=== PATIENT | male | born 1940 | race Caucasian/White ===

== ENCOUNTER → 2017-06-13 | Outpatient (CLI) | payer MEDICARE ==
[2017-06-13 13:56] LABS: Calcium 9.3 mg/dL (8.4-10.2); Total Bilirubin 0.6 mg/dL (0.2-1.3); Total Protein 6.2 g/dL (6.3-8.2)
== END | disposition home or self-care (01) ==
LOC: LABWHC1 13:09
PROVIDERS: ATTEND Internal Medicine Interventional Cardiology
DX: I10 Essential (primary) hypertension (principal)
CPT/HCPCS: 36415; 80053

== ENCOUNTER → 2017-07-07 | Outpatient (CLI) | payer MEDICARE ==
[2017-07-07 18:10] LABS: CH 32.1; CHCM 30.8; HCT 43.8 % (39.0-53.0); HDW 2.19; HGB 13.7 gm/dL (13.0-17.5); Hypochromasia Slight; MCH 32.6 pg (25.0-35.0); MCHC 31.2 g/dL (31.0-37.0); MCV 104.6 fL (80.0-100.0); Macrocytosis Slight; Mean Platelet Volume 9.4; RBC 4.19 m/uL (4.30-5.90); RDW 13.5 % (11.5-15.5); WBC 8.5 k/uL (3.8-10.6)
== END | disposition home or self-care (01) ==
LOC: LABWHC1 16:53
PROVIDERS: ATTEND Internal Medicine Interventional Cardiology
DX: I48.0 Paroxysmal atrial fibrillation (principal)
CPT/HCPCS: 36415; 84443; 85027

== ENCOUNTER → 2017-10-28 | Day surgery (SDC) | payer MEDICARE ==
[~2017-10-28] MED LIST: ACETAMINOPHEN TAB 325 MG TAB ONE; HYDROcodone/APAP 5-325MG 1 EACH TAB PO PRN; PREMYELOGRAM MEDICATION REVIEW 1 EACH MISC PO PRN
[2017-10-28 09:01] LABS: Mean Platelet Volume 8.6; Platelet Count 163 k/uL (150-450)
[2017-10-28 09:10] VITALS: TEMP 97.9
[2017-10-28 09:14] LABS: INR 1.1 (<1.2); Prothrombin Time 10.5 sec (9.0-12.0)
--- NOTE | 2017-10-28 11:11 | FL ---
EXAMINATION TYPE: FL myelogram cervical DATE OF EXAM: 10/28/2017 CLINICAL HISTORY: Cervical spine pain TECHNIQUE: Fluoroscopy. COMPARISON: None. FINDINGS: Fluoroscopic guidance was provided during procedure performed by Dr. Jo. A total of 5 m inutes 50 seconds of fluoroscopic time was utilized during the procedure and 3 spot images was acquir ed. Informed consent was obtained and all the patient's questions were answered. Preprocedural timeout wa s performed. The L3-L4 level was localized under fluoroscopy but was unable to be accessed and there fore the L4-L5 vertebral level was approached. Standard sterile technique was utilized as well as ap propriate local anesthesia 1% Lidocaine and sodium bicarbonate. Spinal needle was introduced into th e thecal sac under fluoroscopic guidance and 11 mls of Omni 240 was injected. The patient tolerated the procedure well and left the department in stable condition. CT myelography is to follow. IMPRESSION: Successful fluoroscopic-guided lumbar puncture with injection of intrathecal contrast for cervical myelogram as described above.
[2017-10-28 11:49] VITALS: RESP 18
--- NOTE | 2017-10-28 13:18 | CT ---
EXAMINATION TYPE: CT cervical spine w con DATE OF EXAM: 10/28/2017 COMPARISON: NONE HISTORY: Cervicalgia CT DLP: 2526 mGycm Automated exposure control for dose reduction was used. CONTRAST: Performed with IV Contrast, patient injected with intrathecal 11 ml mL of Omnipaque 240. FINDINGS: Despite 3 attempts at scanning intrathecal contrast extends to the level of the cervical thoracic ricarda ction. There is grade 1 anterolisthesis of C2 on C3, likely degenerative in nature. There is also straighten ing of the usual cervical lordosis. Extensive multilevel degenerative disc disease is displayed as in tervertebral disc space loss, subchondral cyst formation, facet arthropathy, posterior disc osteophyt e complexes, and uncovertebral hypertrophy. At C2-C3 there is mild left neural foraminal narrowing and mild spinal canal stenosis from a broad-ba sed disc osteophyte complex, uncovertebral hypertrophy and facet arthropathy. Right neuroforamen is p atent. At C3-C4 there is moderate left neural foraminal narrowing, mild right neural foraminal narrowing, an d mild spinal canal stenosis as a result of uncovertebral hypertrophy, facet arthropathy and a works manager ior disc osteophyte complex. At C4-C5 there is moderate to severe left neural foraminal narrowing and moderate right neural forami nal narrowing as well as mild spinal canal stenosis as a result of facet arthropathy, a broad-based d isc osteophyte complex, and uncovertebral hypertrophy. At C5-C6 there is moderate to severe right neural foraminal narrowing and moderate left neural forami nal narrowing as well as mild spinal canal stenosis as a result of facet arthropathy, a broad-based d isc ossify complex, and uncovertebral hypertrophy. At C6-C7 mild bilateral neural foraminal narrowing is present without spinal canal stenosis. At C7-T1 no significant disc disease, neuroforaminal stenosis or spinal canal stenosis are seen. Atherosclerosis is incidentally noted of the carotid and vertebral arteries. Minimal bibasilar subseg mental atelectasis is also present. There is no evidence of acute fracture of the cervical spine. IMPRESSION: 1. NO EVIDENCE OF DISC HERNIATION. 2. MULTILEVEL MODERATE DEGENERATIVE CHANGES OF THE CERVICAL SPINE MOST SEVERE AT C3-C6 RESULTING IN M ILD SPINAL CANAL STENOSIS AT THESE LEVELS AND VARIABLE DEGREES OF NEURAL FORAMINAL STENOSIS DESCRI BED ABOVE. 3. GRADE 1 ANTEROLISTHESIS OF C2 ON C3, LIKELY ON A DEGENERATIVE BASIS WITH NO EVIDENCE OF ACUTE FRAC TURE OF THE CERVICAL SPINE.
[2017-10-28 14:48] VITALS: BP 137/70; PULSE 66
== END | disposition home or self-care (01) ==
LOC: RADPROMAIN 08:16
PROVIDERS: ATTEND Physical Medicine & Rehabilitation
DX: M43.12 Spondylolisthesis, cervical region (principal); M48.02 Spinal stenosis, cervical region; M25.78 Osteophyte, vertebrae; M50.320 Other cervical disc degeneration, mid-cervical region, unspecified level; M47.812 Spondylosis without myelopathy or radiculopathy, cervical region; Z79.01 Long term (current) use of anticoagulants; Z85.46 Personal history of malignant neoplasm of prostate; Z95.0 Presence of cardiac pacemaker
CPT/HCPCS: 85049; 85610; 36415; 62302; 72126; J2001; Q9966; 62284

== ENCOUNTER → 2018-01-20 | Outpatient (CLI) | payer MEDICARE ==
[2018-01-20 16:43] LABS: HGB 12.9 gm/dL (13.0-17.5); MCH 31.2 pg (25.0-35.0); MCHC 32.2 g/dL (31.0-37.0); MCV 96.9 fL (80.0-100.0); Mean Platelet Volume 9.4; Platelet Count 147 k/uL (150-450); RBC 4.13 m/uL (4.30-5.90); RDW 13.2 % (11.5-15.5); WBC 7.5 k/uL (3.8-10.6)
[2018-01-20 16:57] LABS: Albumin 3.7 g/dL (3.5-5.0); Calcium 9.1 mg/dL (8.4-10.2); Potassium 4.2 mmol/L (3.5-5.1); Total Bilirubin 0.3 mg/dL (0.2-1.3); Total Protein 5.6 g/dL (6.3-8.2)
== END | disposition home or self-care (01) ==
LOC: LABWHC1 16:08
PROVIDERS: ATTEND Internal Medicine Interventional Cardiology
DX: D48.0 Neoplasm of uncertain behavior of bone and articular cartilage (principal)
CPT/HCPCS: 36415; 80053; 84443; 85027

== ENCOUNTER → 2018-03-02 | Outpatient (CLI) | payer MEDICARE ==
[2018-03-02 11:37] LABS: Magnesium 2.3 mg/dL (1.6-2.3)
== END | disposition home or self-care (01) ==
LOC: LABWHC1 10:25
PROVIDERS: ATTEND Family Medicine
DX: E83.42 Hypomagnesemia (principal); M40.209 Unspecified kyphosis, site unspecified; M06.9 Rheumatoid arthritis, unspecified; I10 Essential (primary) hypertension; Z51.81 Encounter for therapeutic drug level monitoring
CPT/HCPCS: 36415; 80061; 83735

== ENCOUNTER 2018-08-27 06:46 | Day surgery (SDC) | payer MEDICARE ==
[2018-08-25 09:02] VITALS: BMI 29.2
[~2018-08-27 06:46] MED LIST changes: -ACETAMINOPHEN TAB 325 MG TAB ONE; +ALPRAZolam 0.25 MG TAB PO PRN; +ASPIRIN 325 MG TAB PO ONE; -HYDROcodone/APAP 5-325MG 1 EACH TAB PO PRN; +NITROGLYCERIN SL TABS 0.4 MG TAB SUBLINGUAL PRN; -PREMYELOGRAM MEDICATION REVIEW 1 EACH MISC PO PRN; +SODIUM CHLORIDE 0.9% 1,000 ML in EMPTY BAG 1 BAG IV ONE
[2018-08-27] MEDS ORDERED: VERAPAMIL 2.5 MG/ML 2 ML AMP ONE (07:19)
[2018-08-27] MEDS ORDERED: HEPARIN SODIUM 1,000 UN/ML (10ML VL) ONE (07:19)
[2018-08-27] MEDS ORDERED: fentaNYL (PF) 50 MCG/ML 2 ML AMP ONE (07:19)
[2018-08-27] MEDS ORDERED: LIDOCAINE 1% INJ 10MG/ML (20 ML MDV) ONE ×2 (07:19→08:21)
[2018-08-27] MEDS ORDERED: fentaNYL (PF) 50 MCG/ML 2 ML AMP IV ONE (07:23)
[2018-08-27] MEDS ORDERED: IV FLUID CONTINUATION 950 ML IV ONE (07:23)
[2018-08-27] MEDS: LIDOCAINE 1% (PF) 10MG/ML VIAL SQ ONE ×2 (07:23→08:24)
[2018-08-27] MEDS ORDERED: VERAPAMIL SYRINGE (5 MG/10 ML) INTRAARTER ONE (07:28)
[2018-08-27] MEDS: MIDAZOLAM 2 MG/2 ML VIAL IVP ONE ×2 (07:32→08:25)
[2018-08-27] MEDS ORDERED: CLOPIDOGREL 75 MG TAB ONE (07:40)
[2018-08-27 07:41] LABS: ALT 22 U/L (21-72); AST 31 U/L (17-59); Cholesterol 218 mg/dL (<200); HDL Cholesterol 55 mg/dL (40-60); LDL Cholesterol,Calculated 134 mg/dL (0-99); Triglycerides 143 mg/dL (<150)
[2018-08-27] MEDS ORDERED: CLOPIDOGREL 75 MG TAB PO ONE (07:45)
[2018-08-27 07:49] LABS: INR 1.1 (<1.2); Prothrombin Time 11.4 sec (9.0-12.0)
[2018-08-27] MEDS ORDERED: IOPAMIDOL-370 100ML BTL INJ ONE ×3 (07:54→08:47)
[2018-08-27] MEDS ORDERED: NITROGLYCERIN 1000MCG/10ML SYRINGE INTRACORON ONE (08:37)
[2018-08-27] MEDS ORDERED: ATROPINE SULFATE 0.1 MG/ML 10ML SYRINGE IV PRN (09:03)
[2018-08-27] MEDS ORDERED: ZOLPIDEM 5 MG TAB PO PRN (09:03)
[2018-08-27] MEDS ORDERED: RX INFO: IV CONTRAST WAS GIVEN 1 EACH MISC MISCELLANE PRN (09:03)
[2018-08-27] MEDS ORDERED: MAG HYDROX/AL HYDROX/SIMETH 30 ML CUP PO PRN (09:03)
[2018-08-27] MEDS ORDERED: NITROGLYCERIN SL TABS 0.4 MG TAB SUBLINGUAL PRN (09:03)
[2018-08-27] MEDS ORDERED: SODIUM CHLORIDE 0.9% 1,000 ML IV SCH (09:15)
--- NOTE | 2018-08-27 09:52 | CC ---
CARDIAC CATHETERIZATION REPORT Mr. Worthington is an 78-year-old male with known history of hypertension, hyperlipidemia, who presented with symptoms of dyspnea and had an abnormal myocardial perfusion imaging. In view of that, recommendation regarding cardiac catheterization. The procedure as well as risks and complications were discussed with the patient who is in full understanding and agreement. PROCEDURE: Patient was brought to labor relations or personnel negotiator in a fasting state after receiving fentanyl and Benadryl and achieving moderate conscious sedated state. Using Xylocaine anesthesia and Seldinger technique, a 6-Chinese sheath was introduced in the right radial artery. Selective right and left angiography performed using 6-Chinese right Alberto catheter and a 5-Chinese 3 and half bend left Maria A. Images of the coronary arteries were obtained. Following that, catheters were removed. Images were reviewed. FINDINGS: LEFT MAIN: This is a short size vessel bifurcating into left circumflex, left anterior descending artery, left main coronary artery has no evidence of high-grade stenosis. LEFT ANTERIOR DESCENDING ARTERY: This is a large-sized vessel giving rise to 2 small diagonal branch. The left anterior descending artery has mild intimal disease in mid segment of 20%. The rest of the vessel has no high-grade stenosis. LEFT CIRCUMFLEX: This is a large nondominant vessel giving rise to a large branching obtuse marginal branch in the inferior branch that is small in caliber. There is a 67% plaque in the proximal segment. The proximal circumflex has a 20% plaque. The rest of the vessel has no high-grade stenosis. RIGHT CORONARY ARTERY: This is a large dominant vessel bifurcating distally PDA and posterolateral segment branches. The right coronary artery in mid segment has a 99% stenosis at the takeoff of the acute marginal branch. Distally in the PLV, there is about a 60% stenosis. The vessel beyond that is small in caliber. LEFT VENTRICULOGRAM: Left ventriculogram was not performed. CONCLUSION: 1. Critical stenosis involving the mid right coronary artery. 2. Mild disease in the LAD with moderate disease in the left circumflex. 3. Collaterals from the left coronary system toward the right PDA. RECOMMENDATION: In view of findings and anatomy, I recommend proceeding with angioplasty and stenting of the right coronary artery. The procedure as well as risks and complications were discussed with the patient who is in full understanding and agreement. MMODL / IJN: [id number] /
--- NOTE | 2018-08-27 10:13 | PTCA ---
PERCUTANEOUSTRANS CORORONARY ANGIOGRAPHY Mr. Worthington is an 78-year-old male with a known history of coronary artery disease who recently had an abnormal myocardial perfusion imaging with a significant ischemia involving the inferior wall. Underwent cardiac catheterization, was found to have critical stenosis involving the mid right coronary artery. In view of that, recommendation was made regarding angioplasty and stenting. The procedures, risks and complication were discussed with the patient who is in full understanding and agreement. PROCEDURE: Multiple attempts to cannulate the right coronary artery from the radial approach using a 6-Chinese JR4, Ikari right 2.0, Ikari 1.5, ultimate 1, Bc right posterior and an XB RCA were unsuccessful. At that point, the catheter were removed and using Xylocaine anesthesia in the Seldinger, a 6-Chinese sheath was introduced in the left femoral artery. Subsequently .that sheath was exchanged to a long sheath. Subsequently , a 6- Chinese XB RCA guiding catheter introduced into the system after stenting the right coronary ostium a 0.014 balanced medium weight J-wire was advanced across the lesion positioned. distally then a 2.5 x 12 mm Trek balloon was advanced 1 inflation at 8 atmospheres was done following that the balloon was removed and a 2.5 x 50 mm Xience Elizabeth ID artery stent was deployed postdilated at 16 atmospheres. After the last inflation, after appropriate wait the balloon and the guidewire were withdrawn back in the guiding catheter. Images were obtained repeated. Those images reveal stable successful 10 stenting at that point the guiding catheter, the balloon and the guidewire were removed the sheath was removed. Hemostasis was obtained with deployment of an Angio-Seal in the right in the left femoral artery and TR band on the right radial artery. The patient was returned to his room in stable condition. There was no immediate complication. He had no chest discomfort or significant EKG changes with the inflations. He received a total of 9000 units of intra heparin intravenous heparin as well as intra-arterial verapamil. RESULTS: Successful stenting of the mid right coronary artery with reduction of stenosis from 99% to 0%. RECOMMENDATION: Patient will be continued on aspirin, Plavix, statin and Coumadin will be re- initiated. Those findings and recommendations were discussed with the patient and his family and they are in full understanding and agreement. Duration of the procedure is 88 minutes. MMODL / IJN: [id number] / [facility]
[2018-08-27] MEDS: ACETAMINOPHEN TAB 325 MG TAB PO PRN ×2 (17:49→23:03)
[2018-08-27] MEDS: traMADol 50 MG TAB PO PRN (17:50)
[2018-08-27] MEDS: METOPROLOL TARTRATE 50 MG TAB PO SCH (20:57)
[2018-08-27] MEDS ORDERED: MAGNESIUM OXIDE 400 MG TAB PO SCH (21:00)
[2018-08-27] MEDS ORDERED: DOXAZOSIN 4 MG TAB PO SCH (21:00)
[2018-08-27 21:13] VITALS: TEMP 98.2
[2018-08-28] MEDS: traMADol 50 MG TAB PO PRN ×2 (02:06→08:26)
[2018-08-28 06:38] LABS: Calcium 8.4 mg/dL (8.4-10.2); Potassium 4.5 mmol/L (3.5-5.1)
--- NOTE | 2018-08-28 07:14 | PN ---
PROGRESS NOTE Mr. Worthington is an 78-year-old male with a history of aortic valve replacement, who presented with abnormal myocardial perfusion imaging, underwent cardiac catheterization, was found to have critical stenosis involving the mid right coronary artery, underwent stenting of that vessel. He is doing well this morning, ambulating without difficulty. Denying any chest pain. No dizziness. No palpitation. He denies any nausea or cough. He continues to be in sinus mechanism. He continues to be on aspirin 81 mg daily, Lipitor 40 mg daily, Plavix 75 mg daily, mg daily, lisinopril 40 mg daily, metoprolol tartrate 50 mg twice a day. PHYSICAL EXAMINATION: Blood pressure 143/60 with the heart in the 60s. LUNGS: Clear. HEART: Regular rate and rhythm S1, S2. No S3. No rub with a systolic ejection murmur heard at the base. No diastolic murmur. ABDOMEN: Soft, nontender. EXTREMITIES: No edema. Left groin, no hematoma. Right radial pulse intact. EKG revealed no acute changes. LAB DATA: Lab data revealed BUN and creatinine of 25 and 1.01. Cholesterol 218, LDL of 134. IMPRESSION: 1. Status post stenting of the right coronary artery. 2. Status post aortic valve replacement. 3. Hypertension. 4. Hyperlipidemia. 5. History of paroxysmal atrial fibrillation. RECOMMENDATION: Patient will be discharged home today and followed as an outpatient. He will resume the Coumadin today and stop the aspirin in 1 month. MMODL / IJN: [id number] /
[2018-08-28] MEDS ORDERED: PANTOPRAZOLE 40 MG TABLET PO SCH (07:30)
[2018-08-28 08:14] VITALS: BP 159/70; PULSE 77; RESP 16
[2018-08-28] MEDS: METOPROLOL TARTRATE 50 MG TAB PO SCH (08:20)
[2018-08-28] MEDS: ACETAMINOPHEN TAB 325 MG TAB PO PRN (08:25)
[2018-08-28] MEDS ORDERED: CLOPIDOGREL 75 MG TAB PO SCH (09:00)
[2018-08-28] MEDS ORDERED: LISINOPRIL 20 MG TAB PO SCH (09:00)
[2018-08-28] MEDS ORDERED: ATORVASTATIN 40 MG TAB PO SCH (09:00)
[2018-08-28] MEDS ORDERED: ASPIRIN 81 MG PO SCH (09:00)
== END 2018-08-28 09:45 | disposition home or self-care (01) ==
LOC: CATHCVL 06:46 → 3SCARD 14:17 → CATHCVL 08-28 09:45
PROVIDERS: ATTEND Internal Medicine Interventional Cardiology
DX: I25.10 Atherosclerotic heart disease of native coronary artery without angina pectoris (principal); I10 Essential (primary) hypertension; E78.2 Mixed hyperlipidemia; Z82.49 Family history of ischemic heart disease and other diseases of the circulatory system; I48.0 Paroxysmal atrial fibrillation; E78.00 Pure hypercholesterolemia, unspecified; Z95.0 Presence of cardiac pacemaker; Z95.2 Presence of prosthetic heart valve; Z79.01 Long term (current) use of anticoagulants; Z79.1 Long term (current) use of non-steroidal anti-inflammatories (NSAID); Z79.899 Other long term (current) drug therapy
CPT/HCPCS: 93454; 85347; 84153; 80061; 80048; 84450; 84460; 85610; C9600; C1769 ×3; C1887 ×6; C1760; C1894 ×3; C1725; C1874; J2250; J3010; J1644 ×2; J2001; Q9967

== ENCOUNTER 2019-03-26 14:53 | Emergency (ER) | payer MEDICARE ==
[2019-03-26 15:07] VITALS: BP 122/66; PULSE 100; RESP 18; TEMP 98.1
[2019-03-26 16:21] LABS: INR 2.4 (<1.2); Prothrombin Time 23.7 sec (9.0-12.0)
--- NOTE | 2019-03-26 17:04 | XR ---
EXAMINATION TYPE: XR ribs LT w pa chest xray DATE OF EXAM: 03/26/2019 COMPARISON: NONE HISTORY: Left rib pain TECHNIQUE: 5 views including chest x-ray FINDINGS: There is no heart failure nor confluent pneumonic infiltrate. There is old left posterior s eventh rib fracture. There is slight blunting of the left costophrenic angle.. There is a left should er prosthesis. There is a left axillary pacemaker. There are sternal wires. There is minimal linear d ensity at the left lung base. I see no acute rib fracture. There is lumbar dextroscoliosis. IMPRESSION: No acute rib fracture. Minimal pleural reaction and subsegmental atelectasis at the lung bases. No heart failure.
--- NOTE | 2019-03-26 17:08 | XR ---
EXAMINATION TYPE: XR thoracic spine complete DATE OF EXAM: 03/26/2019 COMPARISON: Chest x-ray 01/25/2014 HISTORY: Chronic pain TECHNIQUE: 3 views FINDINGS: There is 30% anterior wedging of T10 vertebra. There is also mild anterior wedging of T9 an d T8. There is 30% anterior wedging of T7. There is no paraspinal mass. Posterior elements are intact . There is osteopenia. IMPRESSION: Multiple thoracic compression fractures that appear to be progressed significantly compar ed to old chest x-ray.
[2019-03-26 17:09] LABS: Appearance,Urine Clear (Clear); Bilirubin,Urine Negative (Negative); Blood,Urine Negative (Negative); Color,Urine Yellow; Glucose,Urine (UA) Negative (Negative); Ketones,Urine Negative (Negative); Leukocyte Esterase,Urine Negative (Negative); Nitrite,Urine Negative (Negative); PH, Urine 6.5 (5.0-8.0); Protein,Urine Negative (Negative); Specific Gravity,Urine 1.022 (1.001-1.035); Urobilinogen,Urine <2.0 mg/dL (<2.0)
--- NOTE | 2019-03-26 17:09 | XR ---
EXAMINATION TYPE: XR lumbar spine 2 or 3V DATE OF EXAM: 03/26/2019 COMPARISON: 07/12/2014 HISTORY: Chronic pain TECHNIQUE: 3 views FINDINGS: There is mild lumbar dextroscoliosis. There is degenerative disc space narrowing throughout the lumbar spine. There is 10% loss of height of L1 vertebra. Sacroiliac joints are intact. Abdomina l aorta is atheromatous. IMPRESSION: Moderate multilevel spondylotic changes and dextroscoliosis. No definite acute fracture. No significant change compared to old exam.
[2019-03-26] MEDS ORDERED: MORPHINE SULFATE 4 MG/ML SYRINGE IM STA (17:12)
--- NOTE | 2019-03-26 17:41 | ED ---
General Adult HPI <Mone Velásquez - Last Filed: 03/26/19 18:54> - General Source: patient Mode of arrival: ambulatory Limitations: no limitations <Libby Gill - Last Filed: 03/29/19 13:57> - General Chief complaint: Back Pain/Injury Stated complaint: Shoulder swollen, back, hip, rib pain Time Seen by Provider: 03/26/19 15:23 - History of Present Illness Initial comments: 79yo male with history of atrial fibrillation on coumadin presenting today for multiple complaints. Patient states he has had back pain for years, he states he has had compression fractures, and previous left sided rib fracture. He states over the course of the past month he has been taking a muscle relaxant, tramdolol and have several steroid injections from his primary care providers office. He states he has arthritis of his left hip that was recently evaluated by Dr. Franks, orthopedic surgeon--where he was told the pain most likely was from the back more so than the hip. Patient states that after 03/10/19 when riding on his tractor all day and laying on his left side to work on something under the tractor he has had increased mid to low back pain and left sided rib pain. He states he did not have the rib or back pain evaluated only the left hip. Which he received a steroid injection in the right arm about 1.5 weeks ago for at his PCP office. Patient states the pain is persistent when he rotates at his trunk or bends. He states it is positional and no there when sitting still. Patient denies loss of bowel bladder control, fever, IVDU, active cancer, urinary retention, weakness of the UE and LE, or recent falls. Patient states he also wants us to look at right arm to make sure the swelling/bruising around injection site is normal, he was told by primary care it was. Patient also requesting we check his INR, hes been taking his coumadin as directed but its been a month since he has had it checked out. Remaining ROS (-), patient denies redness of affected area, flu like symptoms, shortness of breath, chest pain, inability to walk, or any other complaints. Patient appears well on arrival. VS WNL. Patient states main reason for visit was tramadol not working for pain of the back. (Kinter,Libby L) - Related Data Home Medications Medication Instructions Recorded Confirmed Diclofenac Sodium [Voltaren] 75 mg PO QAM 02/02/15 03/28/19 Hydrochlorothiazide [Hydrodiuril] 25 mg PO QAM 02/02/15 03/28/19 Metoprolol Tartrate [Lopressor] 50 mg PO BID 02/02/15 03/28/19 Omeprazole [PriLOSEC] 20 mg PO DAILY 02/02/15 03/28/19 Ramipril [Altace] 5 mg PO QAM 02/02/15 03/28/19 Terazosin [Hytrin] 5 mg PO HS 02/02/15 03/28/19 traMADol HCL [Ultram] 50 mg PO TID PRN 02/02/15 03/28/19 Ascorbic Acid [Vitamin C] 500 mg PO DAILY 08/25/15 03/28/19 Cholecalciferol [Vitamin D3 (25 1,000 unit PO DAILY 08/25/15 03/28/19 Mcg = 1000 Iu)] Multivitamins, Thera [Multivitamin 1 tab PO DAILY 08/25/15 03/28/19 (formulary)] Acetaminophen Tab [Tylenol] 650 mg PO Q4-6H PRN 07/05/16 03/28/19 Glucosam/Ray-Msm1/C/Kai/Bosw 1 tab PO BID 07/05/16 03/28/19 [Glucosamine-Chondroitin Tablet] Iron 28mg 28 mg PO HS 07/05/16 03/28/19 Magnesium Oxide [Mag-Ox] 250 mg PO HS 07/05/16 03/28/19 Tamsulosin HCl [Flomax] 0.4 mg PO HS 08/28/18 03/28/19 Turmeric Root Extract [Turmeric] 500 mg PO DAILY 03/26/19 03/28/19 Ubidecarenone [Co Q-10] 100 mg PO DAILY 03/26/19 03/28/19 Warfarin [Coumadin] 2.5 mg PO SUMOWETHFR 03/26/19 03/28/19 Warfarin [Coumadin] 5 mg PO TUSA 03/26/19 03/28/19 Clopidogrel [Plavix] 75 mg PO DAILY 03/28/19 03/28/19 Fish Oil/Dha/Epa [Fish Oil 1,200 1 cap PO DAILY 03/28/19 03/28/19 mg Fish Oil] Previous Rx's Medication Instructions Recorded Nitroglycerin Sl Tabs [Nitrostat] 0.4 mg SUBLINGUAL Q5M PRN #25 tab 08/28/18 HYDROcodone/APAP 7.5-325MG [Jamieson 1 tab PO Q6HR PRN 3 Days #12 tab 03/26/19 7.5-325] Lidocaine 5% Patch [Lidoderm] 1 patch TOPICAL DAILY #30 patch 03/28/19 predniSONE 50 mg PO DAILY #5 tablet 03/28/19 Allergies Allergy/AdvReac Type Severity Reaction Status Date / Time No Known Allergies Allergy Verified 03/28/19 00:21 Review of Systems ROS Other: All systems not noted in ROS Statement are negative. <Mone Velásquez - Last Filed: 03/26/19 18:54> ROS Other: All systems not noted in ROS Statement are negative. <Libby Gill - Last Filed: 03/29/19 13:57> ROS Statement: Those systems with pertinent positive or pertinent negative responses have been documented in the HPI. Past Medical History Past Medical History: Atrial Fibrillation, Cancer, GERD/Reflux, Hypertension, Osteoarthritis (OA), Prostate Disorder, Vascular Disorder Additional Past Medical History / Comment(s): HX OF PROSTATE AND SKIN CANCER, [employer] PACEMAKER, [facility] HEART VALVE (COW), TORN LEFT ROTATOR CUFF, DEGENERATIVE ARTHRITIS IN BACK WITH PAIN, LOW IRON AND LEG CRAMPS, R foot OA-pt wears a brace. dislocated shoulder History of Any Multi-Drug Resistant Organisms: None Reported Past Surgical History: Cardiac Valve Replacement, Cholecystectomy, Heart Catheterization, Hernia Repair, Joint Replacement, Orthopedic Surgery, Pacemaker Additional Past Surgical History / Comment(s): 07/09/16 Reverse L shoulder rotator cuff repair arthroplasty. Other surgical HX: AORTIC VALVE REPLACEMENT ([facility]INE) ,BILATERAL GREAT TOES JT REPAIR,LEFT SHOULDER, PAIN CLINIC PROCEDURE, CATARACTS WITH LENS IMPLANTS , EMILEE INGUINAL HERNIAS, HIATAL HERNIA., [employer] PACEMAKER. STENT RCA 08/27/18 Past Anesthesia/Blood Transfusion Reactions: Motion Sickness, Postoperative Nausea & Vomiting (PONV) Type of Cardiac Device: Permanent Pacemaker Device Placement Date:: 2010 LT CHEST Past Psychological History: No Psychological Hx Reported Smoking Status: Never smoker Past Alcohol Use History: Occasional Past Drug Use History: None Reported - Past Family History Brother(s) Family Medical History: Cancer Additional Family Medical History / Comment(s): BROTHERS X2 PROSTATE,HIATAL HERNIA Mother Family Medical History: Congestive Heart Failure (CHF) Additional Family Medical History / Comment(s): EMPHYSEMA Father Family Medical History: Congestive Heart Failure (CHF) Additional Family Medical History / Comment(s): EMPHYSEMA <Libby Gill - Last Filed: 03/29/19 13:57> General Exam Limitations: no limitations <Libby Gill - Last Filed: 03/29/19 13:57> - General Exam Comments Initial Comments: General: The patient is awake and alert, in no distress, and does not appear acutely ill. Eye: +3 mm pupils are equal, round and reactive to light, extra-ocular movements are intact. No nystagmus. There is normal conjunctiva bilaterally. No signs of icterus. Ears, nose, mouth and throat: There are moist mucous membranes and no oral lesions. Neck: The neck is supple, there is no tenderness or JVD. Cardiovascular: There is a regular rate and rhythm. No murmur, rub or gallop is appreciated. Respiratory: Lungs are clear to auscultation, respirations are non-labored, breath sounds are equal. No wheezes, stridor, rales, or rhonchi. Gastrointestinal: Soft, non-distended, non-tender abdomen without masses or organomegaly noted. There is no rebound or guarding present. No CVA tenderness. Bowel sounds are unremarkable. Musculoskeletal: Inspect of the hip, no abnormalities, no abnormal skin changes of back. Inspection of the right humerus reveals yellow bruising, mild swelling, wiht minimal tenderness, no erythema or warmth appreciated. No palpable masses. Midline tendernes of the lower thoracic and upper lumbar spine with palpation, minimal paravertebral tenderness. Normal ROM, no tenderness of the UE, cervical spine. Strength 5/5 of the UE and LE. Patient is able to fully range at the hips b/l including left without limitation or difficulty, patietn states it is tender at maxium angles of the left hip. Sensation intact of the UE and LE equal in comparison b/l. Radial and DP pulses equal bilaterally 2+. Neurological: A&O x 3. CN II-XII intact, There are no obvious motor or sensory deficits. Coordination appears grossly intact. Speech is normal. Skin: Skin is warm and dry and no rashes or lesions are noted. Psychiatric: Cooperative, appropriate mood & affect, normal judgment. (Libby Gill) Course Vital Signs 03/26/19 15:03 Temperature 98.1 F Pulse Rate 100 Respiratory 18 Rate Blood Pressure 122/66 O2 Sat by Pulse 96 Oximetry Medical Decision Making <Libby Gill - Last Filed: 03/29/19 13:57> - Medical Decision Making 79yo presenting for multiple complaints. All starting after working on tractor for a day, bouncing around on uneven ground and working on left side of chest on ground. pt has hx of left sided rib fracture. Point localized tenderness to palpation of the lower left ribs, no abdominal pain. Denies chest pain or pain with inspiration. CXR (-) for fracture. Patient has what appears a healing traumatic hematoma of the right upper arm. Most likely from steroid injection, no signs of infection. Instruct patient to apply heat/ice to area. Patient states he has no new injury of the left hip and it has been evaluated by orthopedic surgery, patient NV intact on exam. No limitation in ROM. Chronic complaint, denies acute changes. Patient has known compression fractures most likely worsened since 03/10 from riding tractor as this when chronic pain changed. Patient NV intact, no findings/complaints consistent with cauda equina. No fractures of lumbar spine. At this time I will refer patient to orthopedic surgeon Dr. Ferrari or management of chronic compression fractures, as well as patient PCP for management of pain outpatient as patient has current opioid prescription. Patient appears pleased with plan and states he will f/u as directed and return for worsenign symptoms or as discussed. Patient was discharged appearing well ,no signs of acute distress. (Libby Gill) - Lab Data Lab Results 03/26/19 03/26/19 Range/Units 16:01 17:00 PT 23.7 H (9.0-12.0) sec INR 2.4 H (<1.2) Urine Color Yellow Urine Appearance Clear (Clear) Urine pH 6.5 (5.0-8.0) Ur Specific [place] 1.022 (1.001-1.035) Urine Protein Negative (Negative) Urine Glucose (UA) Negative (Negative) Urine Ketones Negative (Negative) Urine Blood Negative (Negative) Urine Nitrite Negative (Negative) Urine Bilirubin Negative (Negative) Urine Urobilinogen <2.0 (<2.0) mg/dL Ur Leukocyte Esterase Negative (Negative) Disposition Is patient prescribed a controlled substance at d/c from ED?: Yes When asked, does pt state using other controlled substances?: No If prescribed controlled substance>3 days was MAPS reviewed?: Prescribed <3 Days If opioid is for acute pain is fill amount 7 days or less?: Yes If Rx opioid, was Start Talking consent form obtained?: Yes <Mone Velásquez - Last Filed: 03/26/19 18:54> Is patient prescribed a controlled substance at d/c from ED?: No Time of Disposition: 17:40 <Libby Gill - Last Filed: 03/29/19 13:57> Clinical Impression: Traumatic hematoma of right upper arm, Chronic left hip pain, Rib pain on left side, Thoracic compression fracture Disposition: HOME SELF-CARE Condition: Good Instructions (If sedation given, give patient instructions): Vertebral Compression Fracture (ED) Additional Instructions: Please use medication as discussed. Please follow-up with family doctor in the next 2 days, 10 physical therapy, follow-up with orthopedic surgery Dr. Beth for compression fractures. Please return to emergency room if the symptoms increase or worsen or for any other concerns. Prescriptions: HYDROcodone/APAP 7.5-325MG [[place]ies[place] 7.5-325] 1 tab PO Q6HR PRN 3 Days #12 tab PRN Reason: Pain Referrals: Enedina David MD [Primary Care Provider] - 1-2 days Tari Ferrari DO [Doctor of Osteopathic Medicine] - 1-2 days
--- NOTE | 2019-03-26 18:12 | US ---
EXAMINATION TYPE: US venous doppler duplex UE RT DATE OF EXAM: 03/26/2019 COMPARISON: NONE CLINICAL HISTORY: Pain. Right lateral upper arm discomfort and bruising following steroid shot, patie nt on blood thinners SIDE PERFORMED: Right Right Arm: Appears negative for DVT IMPRESSION: There is no evidence of deep venous thrombosis in the right arm.
== END 2019-03-26 19:16 | disposition home or self-care (01) ==
LOC: EC 14:53
DX: S40.021A Contusion of right upper arm, initial encounter (principal); M48.54XA Collapsed vertebra, not elsewhere classified, thoracic region, initial encounter for fracture; G89.29 Other chronic pain; M25.552 Pain in left hip; I48.91 Unspecified atrial fibrillation; K21.9 Gastro-esophageal reflux disease without esophagitis; I10 Essential (primary) hypertension; Z79.01 Long term (current) use of anticoagulants; Z79.02 Long term (current) use of antithrombotics/antiplatelets; Z79.1 Long term (current) use of non-steroidal anti-inflammatories (NSAID); Z79.899 Other long term (current) drug therapy; Z85.46 Personal history of malignant neoplasm of prostate; Z85.828 Personal history of other malignant neoplasm of skin; Z95.0 Presence of cardiac pacemaker; Z95.2 Presence of prosthetic heart valve; Z87.39 Personal history of other diseases of the musculoskeletal system and connective tissue; X58.XXXA Exposure to other specified factors, initial encounter
CPT/HCPCS: 36415; 85610; 81003; 71101; 72072; 72100; 93971; 99284; 96372; J2270

== ENCOUNTER 2019-03-27 23:24 | Emergency (ER) | payer MEDICARE ==
[2019-03-27 23:34] VITALS: RESP 18
[2019-03-28] MEDS ORDERED: MORPHINE SULFATE 4 MG/ML SYRINGE IVP STA (00:02)
[2019-03-28] MEDS ORDERED: ONDANSETRON 4 MG/2 ML VIAL IVP STA (00:02)
--- NOTE | 2019-03-28 00:19 | ED ---
General Adult HPI - General Chief complaint: Extremity Injury, Upper Stated complaint: Rt Arm Pain Time Seen by Provider: 03/27/19 23:37 Source: patient, family Mode of arrival: wheelchair Limitations: no limitations - History of Present Illness Initial comments: 79-year-old male patient presents to the emergency department today with multiple complaints. The patient reports right arm pain, left rib pain, and left hip pain. Patient states the left hip pain started at the beginning of March. States that he went in and seen his physician and received a steroid injection to the right upper arm which caused a hematoma and ALLERGIC reaction. Patient states that that has been healing however he did develop pain to the right lower humerus since the injection which has been worsening. He denies any numbness or tingling to the arm. Denies any swelling. Patient is also reporting pain to the left ribs which started around the beginning of March as well. Patient states this pain has been worsening. Patient states he'll occasionally receive a sharp stabbing pain to the area. States that it does not seem to change with movement or deep breathing. He is also reporting some pain to the left paraspinal thoracic region. States it felt like a muscle spasm. Denies any shortness of breath, cough, hemoptysis with this. Patient is reporting pain to the left hip. States the pain is across his low back, down into the left buttock. Denies any numbness or tingling to the legs. Denies any radiation of the pain down the leg. Denies any loss of bowel or bladder control. Denies any saddle anesthesia. He states he has had no appetite. States he has lost 4 pounds since the beginning of March without intending to. States his last 6-8 pounds over the last 3 months without intending to. Patient is reporting some mild indigestion as well today. Does take Coumadin and has a pacemaker. Denies any chest pain, nausea, or vomiting. Denies any fever or chills. Denies any rash. - Related Data Home Medications Medication Instructions Recorded Confirmed Diclofenac Sodium [Voltaren] 75 mg PO QAM 02/02/15 03/28/19 Hydrochlorothiazide [Hydrodiuril] 25 mg PO QAM 02/02/15 03/28/19 Metoprolol Tartrate [Lopressor] 50 mg PO BID 02/02/15 03/28/19 Omeprazole [PriLOSEC] 20 mg PO DAILY 02/02/15 03/28/19 Ramipril [Altace] 5 mg PO QAM 02/02/15 03/28/19 Terazosin [Hytrin] 5 mg PO HS 02/02/15 03/28/19 traMADol HCL [Ultram] 50 mg PO TID PRN 02/02/15 03/28/19 Ascorbic Acid [Vitamin C] 500 mg PO DAILY 08/25/15 03/28/19 Cholecalciferol [Vitamin D3 (25 1,000 unit PO DAILY 08/25/15 03/28/19 Mcg = 1000 Iu)] Multivitamins, Thera [Multivitamin 1 tab PO DAILY 08/25/15 03/28/19 (formulary)] Acetaminophen Tab [Tylenol] 650 mg PO Q4-6H PRN 07/05/16 03/28/19 Glucosam/Ray-Msm1/C/Kai/Bosw 1 tab PO BID 07/05/16 03/28/19 [Glucosamine-Chondroitin Tablet] Iron 28mg 28 mg PO HS 07/05/16 03/28/19 Magnesium Oxide [Mag-Ox] 250 mg PO HS 07/05/16 03/28/19 Tamsulosin HCl [Flomax] 0.4 mg PO HS 08/28/18 03/28/19 Turmeric Root Extract [Turmeric] 500 mg PO DAILY 03/26/19 03/28/19 Ubidecarenone [Co Q-10] 100 mg PO DAILY 03/26/19 03/28/19 Warfarin [Coumadin] 2.5 mg PO SUMOWETHFR 03/26/19 03/28/19 Warfarin [Coumadin] 5 mg PO TUSA 03/26/19 03/28/19 Clopidogrel [Plavix] 75 mg PO DAILY 03/28/19 03/28/19 Fish Oil/Dha/Epa [Fish Oil 1,200 1 cap PO DAILY 03/28/19 03/28/19 mg Fish Oil] Previous Rx's Medication Instructions Recorded Nitroglycerin Sl Tabs [Nitrostat] 0.4 mg SUBLINGUAL Q5M PRN #25 tab 08/28/18 HYDROcodone/APAP 7.5-325MG [[place] 1 tab PO Q6HR PRN 3 Days #12 tab 03/26/19 7.5-325] Lidocaine 5% Patch [Lidoderm] 1 patch TOPICAL DAILY #30 patch 03/28/19 predniSONE 50 mg PO DAILY #5 tablet 03/28/19 Allergies Allergy/AdvReac Type Severity Reaction Status Date / Time No Known Allergies Allergy Verified 03/28/19 00:21 Review of Systems ROS Statement: Those systems with pertinent positive or pertinent negative responses have been documented in the HPI. ROS Other: All systems not noted in ROS Statement are negative. Past Medical History Past Medical History: Atrial Fibrillation, Cancer, GERD/Reflux, Hypertension, Osteoarthritis (OA), Prostate Disorder, Vascular Disorder Additional Past Medical History / Comment(s): HX OF PROSTATE AND SKIN CANCER, [employer] PACEMAKER, [facility] HEART VALVE (COW), TORN LEFT ROTATOR CUFF, DEGENERATIVE ARTHRITIS IN BACK WITH PAIN, LOW IRON AND LEG CRAMPS, R foot OA-pt wears a brace. dislocated shoulder History of Any Multi-Drug Resistant Organisms: None Reported Past Surgical History: Cardiac Valve Replacement, Cholecystectomy, Heart Catheterization, Hernia Repair, Joint Replacement, Orthopedic Surgery, Pacemaker Additional Past Surgical History / Comment(s): 07/09/16 Reverse L shoulder rotator cuff repair arthroplasty. Other surgical HX: AORTIC VALVE REPLACEMENT ([facility]) ,BILATERAL GREAT TOES JT REPAIR,LEFT SHOULDER, PAIN CLINIC PROCEDURE, CATARACTS WITH LENS IMPLANTS , EMILEE INGUINAL HERNIAS, HIATAL HERNIA., [employer] PACEMAKER. STENT RCA 08/27/18 Past Anesthesia/Blood Transfusion Reactions: Motion Sickness, Postoperative Nausea & Vomiting (PONV) Type of Cardiac Device: Permanent Pacemaker Device Placement Date:: 2010 LT CHEST Past Psychological History: No Psychological Hx Reported Smoking Status: Never smoker Past Alcohol Use History: Occasional Past Drug Use History: None Reported - Past Family History Brother(s) Family Medical History: Cancer Additional Family Medical History / Comment(s): BROTHERS X2 PROSTATE,HIATAL HERNIA Mother Family Medical History: Congestive Heart Failure (CHF) Additional Family Medical History / Comment(s): EMPHYSEMA Father Family Medical History: Congestive Heart Failure (CHF) Additional Family Medical History / Comment(s): EMPHYSEMA General Exam Limitations: no limitations General appearance: alert, in no apparent distress, other (Physical well- developed, well-nourished elderly male patient in no acute distress. Vital signs upon presentation are temperature 98.2F, pulse 77, respirations 18, blood pressure 153/87, pulse ox 97% on room air.) Eye exam: Present: normal appearance, PERRL, EOMI. Absent: scleral icterus, conjunctival injection, periorbital swelling ENT exam: Present: normal exam, normal oropharynx, mucous membranes moist Respiratory exam: Present: normal lung sounds bilaterally. Absent: respiratory distress, wheezes, rales, rhonchi, stridor Cardiovascular Exam: Present: regular rate, normal rhythm, normal heart sounds. Absent: systolic murmur, diastolic murmur, rubs, gallop, clicks GI/Abdominal exam: Present: soft, tenderness (Mild lower abdominal tenderness), normal bowel sounds. Absent: distended, guarding, rebound, rigid Extremities exam: Present: normal inspection, full ROM, normal capillary refill, other (Skin to the lower extremities is pink, warm, dry. Cap refills less than 3 seconds. Pedal and posttibial pulses are 2+ and equal bilaterally. No swelling. Right upper arm shows evidence of ecchymosis extending from the shoulder down to the elbow, there are varying stages of healing. No bony tenderness. No swelling to the arm. Radial pulses 2+ and equal bilaterally.). Absent: tenderness, pedal edema, joint swelling, calf tenderness Back exam: Present: normal inspection, tenderness (Left posterior rib pain over the thoracic region.). Absent: vertebral tenderness Neurological exam: Present: alert, oriented X3, CN II-XII intact Psychiatric exam: Present: normal affect, normal mood Skin exam: Present: warm, dry, intact, normal color. Absent: rash Course Vital Signs 03/27/19 23:29 Temperature 98.2 F Pulse Rate 77 Respiratory 18 Rate Blood Pressure 153/87 O2 Sat by Pulse 97 Oximetry EKG Findings - EKG Comments: EKG Findings:: EKG obtained at 00 21 shows atrial paced rhythm with a ventricula r rate of 61, LA interval 196, QRS duration 94, QT 400, QTC 402. No evidence of ST elevation or depression. Medical Decision Making - Medical Decision Making 79-year-old male patient presents to the emergency department today for evaluation of right arm pain, left rib pain, mid left back pain, and left hip pain. Physical examination is relatively unremarkable. There is some ecchymosis noted to the right upper arm. Tenderness to the left hip. Labs reviewed and were unremarkable. CT of the chest, abdomen, and pelvis was obtained and showed no acute abnormalities. Patient did have x-rays performed yesterday when he was evaluated for the same pain, this did show evidence for thoracic compression fracture. I do believe that the back pain and left rib pain are caused in part by the compression fracture. Patient's left hip pain seems mechanical and possibly from sciatic back pain which the patient has had in the past. He will be given a steroid burst of prednisone 50 mg. He does have [place] at home as well as muscle relaxers, he is urged take these as directed. He does have an appointment with his plate painter apprentice on Friday and his physician on . He is urged to keep his appointments. Return parameters were discussed in detail. He verbalizes understanding and agrees with this plan. - Lab Data Result diagrams: 03/28/19 00:24 03/28/19 00:24 Lab Results 03/28/19 03/28/19 03/28/19 Range/Units 00:24 00:24 00:24 WBC 8.8 (3.8-10.6) k/uL RBC 4.30 (4.30-5.90) m/uL Hgb 13.3 (13.0-17.5) gm/dL Hct 41.5 (39.0-53.0) % MCV 96.4 (80.0-100.0) fL MCH 31.0 (25.0-35.0) pg MCHC 32.1 (31.0-37.0) g/dL RDW 13.3 (11.5-15.5) % Plt Count 106 L (150-450) k/uL Neutrophils % 81 % Lymphocytes % 8 % Monocytes % 7 % Eosinophils % 2 % Basophils % 0 % Neutrophils # 7.1 (1.3-7.7) k/uL Lymphocytes # 0.7 L (1.0-4.8) k/uL Monocytes # 0.6 (0-1.0) k/uL Eosinophils # 0.2 (0-0.7) k/uL Basophils # 0.0 (0-0.2) k/uL PT 13.5 H (9.0-12.0) sec INR 1.3 H (<1.2) APTT 32.1 H (22.0-30.0) sec Sodium 138 (137-145) mmol/L Potassium 4.2 (3.5-5.1) mmol/L Chloride 103 (98-107) mmol/L Carbon Dioxide 27 (22-30) mmol/L Anion Gap 8 mmol/L BUN 35 H (9-20) mg/dL Creatinine 1.11 (0.66-1.25) mg/dL Est GFR (CKD-EPI)AfAm 72 (>60 ml/min/1.73 sqM) Est GFR (CKD-EPI)NonAf 62 (>60 ml/min/1.73 sqM) Glucose 97 (74-99) mg/dL Plasma Lactic Acid Terrell (0.7-2.0) mmol/L Calcium 9.2 (8.4-10.2) mg/dL Total Bilirubin 0.6 (0.2-1.3) mg/dL AST 22 (17-59) U/L ALT 10 L (21-72) U/L Alkaline Phosphatase 93 (38-126) U/L Creatine Kinase 85 (55-170) U/L Troponin I (0.000-0.034) ng/mL Total Protein 6.4 (6.3-8.2) g/dL Albumin 4.2 (3.5-5.0) g/dL Urine Color Urine Appearance (Clear) Urine pH (5.0-8.0) Ur Specific [place] (1.001-1.035) Urine Protein (Negative) Urine Glucose (UA) (Negative) Urine Ketones (Negative) Urine Blood (Negative) Urine Nitrite (Negative) Urine Bilirubin (Negative) Urine Urobilinogen (<2.0) mg/dL Ur Leukocyte Esterase (Negative) 03/28/19 03/28/19 03/28/19 Range/Units 00:24 00:24 00:24 WBC (3.8-10.6) k/uL RBC (4.30-5.90) m/uL Hgb (13.0-17.5) gm/dL Hct (39.0-53.0) % MCV (80.0-100.0) fL MCH (25.0-35.0) pg MCHC (31.0-37.0) g/dL RDW (11.5-15.5) % Plt Count (150-450) k/uL Neutrophils % % Lymphocytes % % Monocytes % % Eosinophils % % Basophils % % Neutrophils # (1.3-7.7) k/uL Lymphocytes # (1.0-4.8) k/uL Monocytes # (0-1.0) k/uL Eosinophils # (0-0.7) k/uL Basophils # (0-0.2) k/uL PT (9.0-12.0) sec INR (<1.2) APTT (22.0-30.0) sec Sodium (137-145) mmol/L Potassium (3.5-5.1) mmol/L Chloride (98-107) mmol/L Carbon Dioxide (22-30) mmol/L Anion Gap mmol/L BUN (9-20) mg/dL Creatinine (0.66-1.25) mg/dL Est GFR (CKD-EPI)AfAm (>60 ml/min/1.73 sqM) Est GFR (CKD-EPI)NonAf (>60 ml/min/1.73 sqM) Glucose (74-99) mg/dL Plasma Lactic Acid Terrell 1.0 (0.7-2.0) mmol/L Calcium (8.4-10.2) mg/dL Total Bilirubin (0.2-1.3) mg/dL AST (17-59) U/L ALT (21-72) U/L Alkaline Phosphatase (38-126) U/L Creatine Kinase (55-170) U/L Troponin I <0.012 (0.000-0.034) ng/mL Total Protein (6.3-8.2) g/dL Albumin (3.5-5.0) g/dL Urine Color Light Yellow Urine Appearance Clear (Clear) Urine pH 5.5 (5.0-8.0) Ur Specific [place] 1.022 (1.001-1.035) Urine Protein Trace H (Negative) Urine Glucose (UA) Negative (Negative) Urine Ketones Negative (Negative) Urine Blood Negative (Negative) Urine Nitrite Negative (Negative) Urine Bilirubin Negative (Negative) Urine Urobilinogen <2.0 (<2.0) mg/dL Ur Leukocyte Esterase Negative (Negative) - Radiology Data Radiology results: report reviewed, image reviewed CT chest with IV contrast was obtained. Report was reviewed in its entirety. Impression by Dr. Bush shows no acute intrathoracic findings. Trace right pleural effusion. CT abdomen and pelvis with IV contrast was obtained. Report was reviewed in its entirety. Impression by Dr. Bush shows no acute intra- abdominal process. Colonic diverticulosis. Mild bilateral hernia. Disposition Clinical Impression: Left hip pain, Right arm pain, Rib contusion, Back pain Disposition: HOME SELF-CARE Condition: Good Instructions (If sedation given, give patient instructions): Vertebral Compression Fracture (ED), Arthralgia (ED), Muscle Spasm (ED), Hematoma (ED) Additional Instructions: Continue home pain medications. Take muscle relaxer as directed. Apply heat to the painful areas. Use Lidoderm patch as needed. Complete steroid prescription and full. Follow-up with plate painter apprentice on Friday and your physician this week as you have planned. Return to the emergency department immediately for any new, worsening, or concerning symptoms. Prescriptions: Lidocaine 5% Patch [Lidoderm] 1 patch TOPICAL DAILY #30 patch predniSONE 50 mg PO DAILY #5 tablet Is patient prescribed a controlled substance at d/c from ED?: No Referrals: Enedina David MD [Primary Care Provider] - 1-2 days Time of Disposition: 02:15
[2019-03-28 00:35] LABS: Basophils % (A) 0 %; Eosinophils # (A) 0.2 k/uL (0-0.7); Eosinophils % (A) 2 %; HCT 41.5 % (39.0-53.0); HGB 13.3 gm/dL (13.0-17.5); Lymphocytes # (A) 0.7 k/uL (1.0-4.8); Lymphocytes % (A) 8 %; MCHC 32.1 g/dL (31.0-37.0); MCV 96.4 fL (80.0-100.0); Mean Platelet Volume 9.2; Monocytes # (A) 0.6 k/uL (0-1.0); Monocytes % (A) 7 %; Neutrophils # (A) 7.1 k/uL (1.3-7.7); Neutrophils % (A) 81 %; Platelet Count 106 k/uL (150-450); RDW 13.3 % (11.5-15.5); WBC 8.8 k/uL (3.8-10.6)
[2019-03-28 00:36] LABS: Appearance,Urine Clear (Clear); Bilirubin,Urine Negative (Negative); Blood,Urine Negative (Negative); Color,Urine Light Yellow; Glucose,Urine (UA) Negative (Negative); Ketones,Urine Negative (Negative); Leukocyte Esterase,Urine Negative (Negative); Nitrite,Urine Negative (Negative); PH, Urine 5.5 (5.0-8.0); Protein,Urine Trace (Negative); Specific Gravity,Urine 1.022 (1.001-1.035); Urobilinogen,Urine <2.0 mg/dL (<2.0)
[2019-03-28 00:46] LABS: INR 1.3 (<1.2); Partial Thromboplastin Time 32.1 sec (22.0-30.0); Prothrombin Time 13.5 sec (9.0-12.0)
[2019-03-28 00:51] LABS: Albumin 4.2 g/dL (3.5-5.0); Calcium 9.2 mg/dL (8.4-10.2); Potassium 4.2 mmol/L (3.5-5.1); Total Bilirubin 0.6 mg/dL (0.2-1.3); Total Protein 6.4 g/dL (6.3-8.2)
[2019-03-28] MEDS ORDERED: SODIUM CHLORIDE 0.9% 500 ML 500 ML IV ONE (01:26)
--- NOTE | 2019-03-28 01:36 | CT ---
EXAM: CT Chest With Intravenous Contrast CLINICAL HISTORY: ITS.REASON CT Reason: Pain TECHNIQUE: Axial computed tomography images of the chest with intravenous contrast. CTDI is 14 mGy and DLP is 415 mGy-cm. This CT exam was performed using one or more of the following dose reduction techniques: automated exposure control, adjustment of the mA and/or kV according to patient size, and/or use of iterative reconstruction technique. COMPARISON: No relevant prior studies available. FINDINGS: Lungs: No mass. No consolidation. Pleural space: No pneumothorax. Trace right pleural effusion. Heart: Mildly enlarged heart size without pericardial effusion. Pacer wires are in place. Bones/joints: No acute fracture. Soft tissues: Unremarkable. Vasculature: Unremarkable. No thoracic aortic aneurysm. Lymph nodes: No enlarged lymph nodes. IMPRESSION: No acute intrathoracic findings. Trace right pleural effusion since 6. EXAM: CT Abdomen and Pelvis With Intravenous Contrast CLINICAL HISTORY: ITS.REASON CT Reason: Pain TECHNIQUE: Axial computed tomography images of the abdomen and pelvis with intravenous contrast. CTDI is 14 mGy and DLP is 415 mGy-cm. This CT exam was performed using one or more of the following dose reduction techniques: automated exposure control, adjustment of the mA and/or kV according to patient size, and/or use of iterative reconstruction technique. COMPARISON: No relevant prior studies available. FINDINGS: ABDOMEN: Liver: Unremarkable. Gallbladder and bile ducts: Removed. Pancreas: Unremarkable. Spleen: Unremarkable. Adrenals: Unremarkable. Kidneys and ureters: No hydronephrosis. Stomach and bowel: No bowel obstruction. No bowel wall thickening. Mild hiatal hernia. Colonic diverticulosis. PELVIS: Appendix: No appendicitis. Bladder: Unremarkable. Reproductive: Enlarged. ABDOMEN and PELVIS: Intraperitoneal space: Unremarkable. Bones/joints: No acute fractures. Soft tissues: Unremarkable. Vasculature: No abdominal aortic aneurysm. Lymph nodes: No enlarged lymph nodes. IMPRESSION: No acute intra-abdominal process. Colonic diverticulosis. Mild hiatal hernia.
[2019-03-28] MEDS ORDERED: methylPREDNISolone SOD SUCCI 125 MG/2 ML VIAL IV STA (02:12)
[2019-03-28] MEDS ORDERED: LIDOCAINE 5% PATCH TOPICAL STA (02:12)
[2019-03-28 02:38] VITALS: BP 122/66; PULSE 67; TEMP 98
== END 2019-03-28 03:00 | disposition home or self-care (01) ==
LOC: EC 23:24
DX: S20.212A Contusion of left front wall of thorax, initial encounter (principal); M79.601 Pain in right arm; M25.552 Pain in left hip; M54.9 Dorsalgia, unspecified; S40.021A Contusion of right upper arm, initial encounter; K57.30 Diverticulosis of large intestine without perforation or abscess without bleeding; I48.91 Unspecified atrial fibrillation; K21.9 Gastro-esophageal reflux disease without esophagitis; I10 Essential (primary) hypertension; Z79.01 Long term (current) use of anticoagulants; Z79.02 Long term (current) use of antithrombotics/antiplatelets; Z79.899 Other long term (current) drug therapy; Z95.0 Presence of cardiac pacemaker; Z95.5 Presence of coronary angioplasty implant and graft; Z95.2 Presence of prosthetic heart valve; Z85.828 Personal history of other malignant neoplasm of skin; Z96.612 Presence of left artificial shoulder joint
CPT/HCPCS: 36415; 93005; 80053; 82550; 83605; 84484; 85025; 85610; 85730; 81003; 71260; 74177; 99284; 96374; 96375 ×2; 96361; J2270; J2930; J2405; Q9967

== ENCOUNTER → 2019-04-12 | Outpatient (CLI) | payer MEDICARE ==
--- NOTE | 2019-04-13 10:57 | XR ---
EXAMINATION TYPE: XR ribs LT w pa chest xray DATE OF EXAM: 04/12/2019 COMPARISON: 03/26/2019 HISTORY: Left rib pain for months TECHNIQUE: Frontal and oblique views of the left ribs were obtained. Single frontal view of the chest was also obtained. FINDINGS: There is partial obscuration of the left ribs by a left-sided overlying cardiac device. There is a callused healed rib fracture deformity of the seventh rib posterior laterally unchanged fr om the prior exam. Diffuse osseous demineralization is seen. The cardiomediastinal silhouette is enla rged. Reverse left humeral arthroplasty is noted. No focal consolidation, pleural effusion or pneumot horax. IMPRESSION: Calyceal fracture deformity of the posterior lateral left seventh rib. No acute displaced left rib fractures. No acute cardiopulmonary process.
== END | disposition home or self-care (01) ==
LOC: RADXRMAIN 16:35
PROVIDERS: ATTEND Family Medicine
DX: M95.4 Acquired deformity of chest and rib (principal); Z87.81 Personal history of (healed) traumatic fracture

== ENCOUNTER 2019-04-19 05:24 | Inpatient (IN) | payer MEDICARE ==
[2019-04-19 06:10] LABS: Basophils % (A) 0 %; Eosinophils # (A) 0.2 k/uL (0-0.7); Eosinophils % (A) 2 %; Hypochromasia Slight; Lymphocytes # (A) 0.4 k/uL (1.0-4.8); Lymphocytes % (A) 5 %; MCH 30.6 pg (25.0-35.0); MCHC 30.7 g/dL (31.0-37.0); MCV 99.7 fL (80.0-100.0); Macrocytosis Slight; Mean Platelet Volume 8.6; Monocytes # (A) 0.5 k/uL (0-1.0); Monocytes % (A) 6 %; Neutrophils # (A) 6.6 k/uL (1.3-7.7); Neutrophils % (A) 85 %; Platelet Count 118 k/uL (150-450); RBC 2.71 m/uL (4.30-5.90); RDW 14.4 % (11.5-15.5); WBC 7.7 k/uL (3.8-10.6)
[2019-04-19 06:12] LABS: HGB 8.3 gm/dL (13.0-17.5)
[2019-04-19 06:19] LABS: Albumin 3.1 g/dL (3.5-5.0); Calcium 8.6 mg/dL (8.4-10.2); Potassium 4.3 mmol/L (3.5-5.1); Total Bilirubin 0.9 mg/dL (0.2-1.3); Total Protein 5.4 g/dL (6.3-8.2)
[2019-04-19 06:20] LABS: Partial Thromboplastin Time 48.3 sec (22.0-30.0); Prothrombin Time 19.5 sec (9.0-12.0)
--- NOTE | 2019-04-19 06:28 | ED ---
General Adult HPI - General Chief complaint: Shortness of Breath Stated complaint: poss afib Time Seen by Provider: 04/19/19 06:02 Source: patient, RN notes reviewed Mode of arrival: wheelchair Limitations: no limitations - History of Present Illness Initial comments: This is an 79-year-old male presents emergency Department with chief complaint of fatigue and mild shortness of breath. Patient states that he just felt extremity fatigue of last 2 days with no other associated symptoms. He is concerned that he is in A. fib he states that he's had a history of A. fib and takes Coumadin for this. Patient states that he had a bout of A. fib in December and he felt similar. He has no complaints of palpitations at this time. Patient does admit that he's had some ongoing intercostal issues in which she's had rib discomfort. Patient states that he's been on multiple bouts of oral steroids. Patient denies fever, chills, productive cough, headache or dizziness. Patient did have a fall last Friday states that he has bruising from his right shoulder down his chest and right leg. Patient also states that he received a phone call from his live out nanny or Friday stating that his INR was very elevated in which she discontinued it and also states that he took some vitamin K. Patient schedule have her recheck today. Patient denies any hematuria, dysuria, melena or hematochezia. - Related Data Home Medications Medication Instructions Recorded Confirmed Diclofenac Sodium [Voltaren] 75 mg PO DIRECTED 02/02/15 04/19/19 Hydrochlorothiazide [Hydrodiuril] 25 mg PO QAM 02/02/15 04/19/19 Metoprolol Tartrate [Lopressor] 50 mg PO BID 02/02/15 04/19/19 Omeprazole [PriLOSEC] 20 mg PO DAILY 02/02/15 04/19/19 Ramipril [Altace] 5 mg PO QAM 02/02/15 04/19/19 Terazosin [Hytrin] 5 mg PO HS 02/02/15 04/19/19 traMADol HCL [Ultram] 50 mg PO TID PRN 02/02/15 04/19/19 Ascorbic Acid [Vitamin C] 500 mg PO DAILY 08/25/15 04/19/19 Cholecalciferol [Vitamin D3 (25 1,000 unit PO DAILY 08/25/15 04/19/19 Mcg = 1000 Iu)] Multivitamins, Thera [Multivitamin 1 tab PO DAILY 08/25/15 04/19/19 (formulary)] Acetaminophen Tab [Tylenol] 650 mg PO Q4-6H PRN 07/05/16 04/19/19 Glucosam/Ray-Msm1/C/Kai/Bosw 1 tab PO BID 07/05/16 04/19/19 [Glucosamine-Chondroitin Tablet] Iron 28mg 28 mg PO HS 07/05/16 04/19/19 Magnesium Oxide [Mag-Ox] 250 mg PO HS 07/05/16 04/19/19 Tamsulosin HCl [Flomax] 0.4 mg PO HS 08/28/18 04/19/19 Turmeric Root Extract [Turmeric] 500 mg PO DAILY 03/26/19 04/19/19 Ubidecarenone [Co Q-10] 100 mg PO DAILY 03/26/19 04/19/19 Warfarin [Coumadin] 5 mg PO DIRECTED 03/26/19 04/19/19 Clopidogrel [Plavix] 75 mg PO DAILY 03/28/19 04/19/19 Fish Oil/Dha/Epa [Fish Oil 1,200 1 cap PO DAILY 03/28/19 04/19/19 mg Fish Oil] Previous Rx's Medication Instructions Recorded Nitroglycerin Sl Tabs [Nitrostat] 0.4 mg SUBLINGUAL Q5M PRN #25 tab 08/28/18 HYDROcodone/APAP 7.5-325MG [[place] 1 tab PO Q6HR PRN 3 Days #12 tab 03/26/19 7.5-325] Lidocaine 5% Patch [Lidoderm] 1 patch TOPICAL DAILY #30 patch 03/28/19 Allergies Allergy/AdvReac Type Severity Reaction Status Date / Time No Known Allergies Allergy Verified 04/19/19 07:44 Review of Systems ROS Statement: Those systems with pertinent positive or pertinent negative responses have been documented in the HPI. ROS Other: All systems not noted in ROS Statement are negative. Past Medical History Past Medical History: Atrial Fibrillation, Cancer, GERD/Reflux, Hypertension, Osteoarthritis (OA), Prostate Disorder, Vascular Disorder Additional Past Medical History / Comment(s): HX OF PROSTATE AND SKIN CANCER, [employer]TR[employer]IC PACEMAKER, [facility] C[facility]Y HEART VALVE (COW), TORN LEFT ROTATOR CUFF, DEGENERATIVE ARTHRITIS IN BACK WITH PAIN, LOW IRON AND LEG CRAMPS, R foot OA-pt wears a brace. dislocated shoulder interecostal neuroelgia History of Any Multi-Drug Resistant Organisms: None Reported Past Surgical History: Cardiac Valve Replacement, Cholecystectomy, Heart Catheterization, Hernia Repair, Joint Replacement, Orthopedic Surgery, Pacemaker Additional Past Surgical History / Comment(s): 07/09/16 Reverse L shoulder rotator cuff repair arthroplasty. Other surgical HX: AORTIC VALVE REPLACEMENT ([facility]) ,BILATERAL GREAT TOES JT REPAIR,LEFT SHOULDER, PAIN CLINIC PROCEDURE, CATARACTS WITH LENS IMPLANTS , EMILEE INGUINAL HERNIAS, HIATAL HERNIA., MEDTRONIC PACEMAKER. STENT RCA 08/27/18 Past Anesthesia/Blood Transfusion Reactions: Motion Sickness, Postoperative Nausea & Vomiting (PONV) Type of Cardiac Device: Permanent Pacemaker Device Placement Date:: 2010 LT CHEST Past Psychological History: No Psychological Hx Reported Smoking Status: Never smoker Past Alcohol Use History: Occasional Past Drug Use History: None Reported - Past Family History Brother(s) Family Medical History: Cancer Additional Family Medical History / Comment(s): BROTHERS X2 PROSTATE,HIATAL HERNIA Mother Family Medical History: Congestive Heart Failure (CHF) Additional Family Medical History / Comment(s): EMPHYSEMA Father Family Medical History: Congestive Heart Failure (CHF) Additional Family Medical History / Comment(s): EMPHYSEMA General Exam Limitations: no limitations General appearance: alert, in no apparent distress Head exam: Present: atraumatic, normocephalic, normal inspection Eye exam: Present: normal appearance, PERRL, EOMI. Absent: scleral icterus, conjunctival injection, periorbital swelling ENT exam: Present: normal exam, normal oropharynx, mucous membranes moist Neck exam: Present: normal inspection, full ROM. Absent: tenderness, meningismus, lymphadenopathy Respiratory exam: Present: normal lung sounds bilaterally, chest wall tenderness (Mild right-sided ecchymosis noted to the right sided anterior chest). Absent: respiratory distress, wheezes, rales, rhonchi, stridor Cardiovascular Exam: Present: regular rate, normal rhythm, normal heart sounds. Absent: systolic murmur, diastolic murmur, rubs, gallop, clicks GI/Abdominal exam: Present: soft, normal bowel sounds. Absent: distended, t enderness, guarding, rebound, rigid Neurological exam: Present: alert, oriented X3, CN II-XII intact, reflexes normal. Absent: motor sensory deficit Skin exam: Present: warm, dry, intact, normal color. Absent: rash Course Vital Signs 04/19/19 04/19/19 05:33 07:16 Temperature 98.6 F Pulse Rate 72 62 Respiratory 19 16 Rate Blood Pressure 116/59 126/67 O2 Sat by Pulse 96 94 L Oximetry EKG Findings - EKG Comments: EKG Findings:: EKG performed at 5:50 1H Alexei rate 65 [place] 112 QRS 104 QT/QTC 402/418 Medical Decision Making - Medical Decision Making 79-year-old male presented for jaundice weakness and fatigue. Patient's found to have anemia of 8.3 with a significant drop one went from 13.3. Patient is Hemoccult negative he does have significant area of bruising and he had Coumadin coagulopathy on with 8. Patient will be admitted for recheck H&H and further evaluation. - Lab Data Result diagrams: 04/19/19 05:51 04/19/19 05:51 Lab Results 04/19/19 04/19/19 04/19/19 Range/Units 05:51 05:51 05:51 WBC 7.7 (3.8-10.6) k/uL RBC 2.71 L (4.30-5.90) m/uL Hgb 8.3 L D (13.0-17.5) gm/dL Hct 27.0 L (39.0-53.0) % MCV 99.7 (80.0-100.0) fL MCH 30.6 (25.0-35.0) pg MCHC 30.7 L (31.0-37.0) g/dL RDW 14.4 (11.5-15.5) % Plt Count 118 L (150-450) k/uL Neutrophils % 85 % Lymphocytes % 5 % Monocytes % 6 % Eosinophils % 2 % Basophils % 0 % Neutrophils # 6.6 (1.3-7.7) k/uL Lymphocytes # 0.4 L (1.0-4.8) k/uL Monocytes # 0.5 (0-1.0) k/uL Eosinophils # 0.2 (0-0.7) k/uL Basophils # 0.0 (0-0.2) k/uL Hypochromasia Slight Macrocytosis Slight PT 19.5 H (9.0-12.0) sec INR 2.0 H (<1.2) APTT 48.3 H (22.0-30.0) sec Sodium 137 (137-145) mmol/L Potassium 4.3 (3.5-5.1) mmol/L Chloride 105 (98-107) mmol/L Carbon Dioxide 25 (22-30) mmol/L Anion Gap 7 mmol/L BUN 35 H (9-20) mg/dL Creatinine 1.05 (0.66-1.25) mg/dL Est GFR (CKD-EPI)AfAm 77 (>60 ml/min/1.73 sqM) Est GFR (CKD-EPI)NonAf 67 (>60 ml/min/1.73 sqM) Glucose 117 H (74-99) mg/dL Calcium 8.6 (8.4-10.2) mg/dL Total Bilirubin 0.9 (0.2-1.3) mg/dL AST 22 (17-59) U/L ALT 16 L (21-72) U/L Alkaline Phosphatase 60 (38-126) U/L Troponin I (0.000-0.034) ng/mL Total Protein 5.4 L (6.3-8.2) g/dL Albumin 3.1 L (3.5-5.0) g/dL Stool Occult Blood (Negative) 04/19/19 04/19/19 Range/Units 05:51 07:29 WBC (3.8-10.6) k/uL RBC (4.30-5.90) m/uL Hgb (13.0-17.5) gm/dL Hct (39.0-53.0) % MCV (80.0-100.0) fL MCH (25.0-35.0) pg MCHC (31.0-37.0) g/dL RDW (11.5-15.5) % Plt Count (150-450) k/uL Neutrophils % % Lymphocytes % % Monocytes % % Eosinophils % % Basophils % % Neutrophils # (1.3-7.7) k/uL Lymphocytes # (1.0-4.8) k/uL Monocytes # (0-1.0) k/uL Eosinophils # (0-0.7) k/uL Basophils # (0-0.2) k/uL Hypochromasia Macrocytosis PT (9.0-12.0) sec INR (<1.2) APTT (22.0-30.0) sec Sodium (137-145) mmol/L Potassium (3.5-5.1) mmol/L Chloride (98-107) mmol/L Carbon Dioxide (22-30) mmol/L Anion Gap mmol/L BUN (9-20) mg/dL Creatinine (0.66-1.25) mg/dL Est GFR (CKD-EPI)AfAm (>60 ml/min/1.73 sqM) Est GFR (CKD-EPI)NonAf (>60 ml/min/1.73 sqM) Glucose (74-99) mg/dL Calcium (8.4-10.2) mg/dL Total Bilirubin (0.2-1.3) mg/dL AST (17-59) U/L ALT (21-72) U/L Alkaline Phosphatase (38-126) U/L Troponin I 0.019 (0.000-0.034) ng/mL Total Protein (6.3-8.2) g/dL Albumin (3.5-5.0) g/dL Stool Occult Blood Negative (Negative) Disposition Clinical Impression: Anemia, Weakness, Traumatic hematoma of multiple sites, Warfarin-induced coagulopathy Disposition: ADMITTED IP TO THIS [facility] Condition: Fair Referrals: Enedina David MD [Primary Care Provider] - 1-2 days
--- NOTE | 2019-04-19 06:43 | XR ---
EXAM: XR Right Shoulder Complete, 2 or More Views CLINICAL HISTORY: ITS.REASON XR Reason: Pain TECHNIQUE: Two or more views of the right shoulder. COMPARISON: CT chest 03/28/19 IMPRESSION: As seen on the CT from the prior exam there appears to be comminuted fractures involving the distal right clavicle and the humeral head. No significant dislocation of the glenohumeral joint. There is decreased acromioclavicular distance consistent with rotator cuff pathology. There is 2.5 cm linear calcification along the rotator cuff tendon attachment site along the greater tuberosity consistent with calcific tendinosis.
--- NOTE | 2019-04-19 06:55 | XR ---
EXAM: XR Chest, 2 Views CLINICAL HISTORY: ITS.REASON XR Reason: difficulty breathing TECHNIQUE: Frontal and lateral views of the chest. COMPARISON: 01/25/14. IMPRESSION: Cardiomegaly. Pacer wires are in place. Small left lower lobe opacity, likely atelectasis versus aspiration. Partially visualized fractured right clavicle and humerus.
[2019-04-19] MEDS ORDERED: ACETAMINOPHEN TAB 325 MG TAB PO PRN (09:40)
[2019-04-19] MEDS ORDERED: PHYTONADIONE ORAL 5 MG/5 ML ORAL.SYRG PO STA (11:39)
[2019-04-19] MEDS ORDERED: HYDROCHLOROTHIAZIDE 25 MG TAB PO ONE (11:45)
[2019-04-19] MEDS ORDERED: METOPROLOL TARTRATE 50 MG TAB PO ONE (11:45)
--- NOTE | 2019-04-19 11:53 | P.CONS ---
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 Patient has been experiencing worsening fatigue over the last few days. 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 CT chest abdomen and pelvis 03/28/2019 reported no acute findings. Colonic diverticulosis. Mild hiatal hernia. Denies epigastric abdominal pain. Patient fell 2 weeks ago with development of visible ecchymosis to the right lower extremity as well as to the bilateral right flank backside. Patient was told prior to admission his INR was 8.1. Consult requested for GI bleed evaluation. Patient vehemently denies hematemesis hematochezia or melena. No history GI bleed. Last colonoscopy 4-5 years ago to his memory was unremarkable. No recent EGD thinks one was done around the time of his hiatal hernia repair. Admission hemoglobin 8.3. MCV 99. Platelet 118. INR 2.0. BUN 35. Creatinine 1.0. FOBT negative. Review of hemoglobin on 03/28/2019 was 13.3. INR at that time was 1.3. Review of Systems Constitutional: Denies fever, chills, sweats, weight gain, or loss. HEENT: Negative for migraines, blurred vision or loss, earaches, drainage, tinnitus, oral mucosal lesions, dysphagia, or odynophagia. Cardiac: Negative for chest pain, arrhythmias, or palpitation. Respiratory: Negative for shortness of breath, hemoptysis, cough, or sputum production. Gastrointestinal: See HPI for pertinent findings. Genitourinary: Negative for hematuria, urgency, frequency, polyuria, dysuria, or penile discharge. Musculoskeletal: Negative for muscle aches, swelling, arthritis, and arthralgias. Neurologic: Negative for stroke or TIA. Endocrine: Negative for thyroid problems. Skin: Negative for rash or itching. Psychiatric: Negative history for depression and anxiety Past Medical History Past Medical History: Atrial Fibrillation, Cancer, GERD/Reflux, Hypertension, Osteoarthritis (OA), Prostate Disorder, Vascular Disorder Additional Past Medical History / Comment(s): HX OF PROSTATE AND SKIN CANCER, [employer] PACEMAKER, [facility] CINDY HEART VALVE (COW), TORN LEFT ROTATOR CUFF, DEGENERATIVE ARTHRITIS IN BACK WITH PAIN, LOW IRON AND LEG CRAMPS, R foot OA-pt wears a brace. dislocated shoulder interecostal neuroelgia History of Any Multi-Drug Resistant Organisms: None Reported Past Surgical History: Cardiac Valve Replacement, Cholecystectomy, Heart Catheterization, Hernia Repair, Joint Replacement, Orthopedic Surgery, Pacemaker Additional Past Surgical History / Comment(s): 07/09/16 Reverse L shoulder rotator cuff repair arthroplasty. Other surgical HX: AORTIC VALVE REPLACEMENT ([facility]) ,BILATERAL GREAT TOES JT REPAIR,LEFT SHOULDER, PAIN CLINIC PROCEDURE, CATARACTS WITH LENS IMPLANTS , EMILEE INGUINAL HERNIAS, HIATAL HERNIA., MEDTRONIC PACEMAKER. STENT RCA 08/27/18 Past Anesthesia/Blood Transfusion Reactions: Motion Sickness, Postoperative Nausea & Vomiting (PONV) Type of Cardiac Device: Permanent Pacemaker Device Placement Date:: 2010 CHEST Past Psychological History: No Psychological Hx Reported Smoking Status: Never smoker Past Alcohol Use History: Occasional Past Drug Use History: None Reported - Past Family History Brother(s) Family Medical History: Cancer Additional Family Medical History / Comment(s): BROTHERS X2 PROSTATE,HIATAL HERNIA Mother Family Medical History: Congestive Heart Failure (CHF) Additional Family Medical History / Comment(s): EMPHYSEMA Father Family Medical History: Congestive Heart Failure (CHF) Additional Family Medical History / Comment(s): EMPHYSEMA Medications and Allergies Home Medications Medication Instructions Recorded Confirmed Type Diclofenac Sodium [Voltaren] 75 mg PO DIRECTED 02/02/15 04/19/19 History Hydrochlorothiazide [Hydrodiuril] 25 mg PO QAM 02/02/15 04/19/19 History Metoprolol Tartrate [Lopressor] 50 mg PO BID 02/02/15 04/19/19 History Omeprazole [PriLOSEC] 20 mg PO DAILY 02/02/15 04/19/19 History Ramipril [Altace] 5 mg PO QAM 02/02/15 04/19/19 History Terazosin [Hytrin] 5 mg PO HS 02/02/15 04/19/19 History traMADol HCL [Ultram] 50 mg PO TID PRN 02/02/15 04/19/19 History Ascorbic Acid [Vitamin C] 500 mg PO DAILY 08/25/15 04/19/19 History Cholecalciferol [Vitamin D3 (25 1,000 unit PO DAILY 08/25/15 04/19/19 History Mcg = 1000 Iu)] Multivitamins, Thera [Multivitamin 1 tab PO DAILY 08/25/15 04/19/19 History (formulary)] Acetaminophen Tab [Tylenol] 650 mg PO Q4-6H PRN 07/05/16 04/19/19 History Glucosam/Ray-Msm1/C/Kai/Bosw 1 tab PO BID 07/05/16 04/19/19 History [Glucosamine-Chondroitin Tablet] Iron 28mg 28 mg PO HS 07/05/16 04/19/19 History Magnesium Oxide [Mag-Ox] 250 mg PO HS 07/05/16 04/19/19 History Nitroglycerin Sl Tabs [Nitrostat] 0.4 mg SUBLINGUAL Q5M PRN #25 tab 08/28/18 04/19/19 Rx Tamsulosin HCl [Flomax] 0.4 mg PO HS 08/28/18 04/19/19 History HYDROcodone/APAP 7.5-325MG [[place] 1 tab PO Q6HR PRN 3 Days #12 tab 03/26/19 04/19/19 Rx 7.5-325] Turmeric Root Extract [Turmeric] 500 mg PO DAILY 03/26/19 04/19/19 History Ubidecarenone [Co Q-10] 100 mg PO DAILY 03/26/19 04/19/19 History Warfarin [Coumadin] 5 mg PO DIRECTED 03/26/19 04/19/19 History Clopidogrel [Plavix] 75 mg PO DAILY 03/28/19 04/19/19 History Fish Oil/Dha/Epa [Fish Oil 1,200 1 cap PO DAILY 03/28/19 04/19/19 History mg Fish Oil] Lidocaine 5% Patch [Lidoderm] 1 patch TOPICAL DAILY #30 patch 03/28/19 04/19/19 Rx Allergies Allergy/AdvReac Type Severity Reaction Status Date / Time No Known Allergies Allergy Verified 04/19/19 07:44 Physical Exam Vitals: Vital Signs Temp Pulse Pulse Resp BP BP Pulse Ox 04/19/19 11:04 98.2 F 78 20 120/57 87 L 04/19/19 10:34 76 18 111/69 98 04/19/19 09:18 84 16 119/56 99 04/19/19 07:16 62 16 126/67 94 L 04/19/19 05:33 98.6 F 72 19 116/59 96 Intake and Output 04/18/19 04/19/19 04/19/19 22:59 06:59 14:59 Other: Weight 73.482 kg General appearance: The patient is alert, oriented, in no acute distress. HET: Head is normocephalic and atraumatic. Pupils are equal and reactive. Oropharynx is clear without lesions. Neck: Supple without lymphadenopathy. Trachea midline. Heart: S1 S2. Regular rate and rhythm. Lungs: No crackles or wheezes are heard. Abdomen: Soft, nontender, nondistended with bowel sounds. No peritoneal signs. No palpable organomegaly or masses. Extremities: Grossly ecchymotic to the right lower extremity as well as to the right flank backside extending over to the left ribs and right shoulder. Normal skin color and turgor. No cyanosis, rash, ulceration, clubbing, or edema. Radial and pedal pulses are 2/4 bilaterally. Neurological: No focal deficits. Strength and sensation are grossly intact. Results CBC & Chem 7: 04/19/19 05:51 04/19/19 05:51 Labs: Abnormal Lab Results - Last 24 Hours (Table) 04/19/19 04/19/19 04/19/19 Range/Units 05:51 05:51 05:51 RBC 2.71 L (4.30-5.90) m/uL Hgb 8.3 L D (13.0-17.5) gm/dL Hct 27.0 L (39.0-53.0) % MCHC 30.7 L (31.0-37.0) g/dL Plt Count 118 L (150-450) k/uL Lymphocytes # 0.4 L (1.0-4.8) k/uL PT 19.5 H (9.0-12.0) sec INR 2.0 H (<1.2) APTT 48.3 H (22.0-30.0) sec BUN 35 H (9-20) mg/dL Glucose 117 H (74-99) mg/dL ALT 16 L (21-72) U/L Total Protein 5.4 L (6.3-8.2) g/dL Albumin 3.1 L (3.5-5.0) g/dL CT scan - abdomen: report reviewed (CT abdomen and pelvis chest 03/28/[address] Salgado) Assessment and Plan (1) Normocytic anemia Narrative/Plan: 79-year-old male admitted with worsening fatigue and reported outpatient supra therapeutic INR of 8.1 for a history of atrial fibrillation CAD PCI stent and bovine AVR. Patient fell less than 2 weeks ago with visible evidence of diffuse ecchymosis to the right lower extremity right flank backside as well as the left ribs and right shoulder consistent with subcutaneous acute blood loss. Underlying occult GI bleed cannot be excluded however patient denies GI complaints as well as hematemesis hematochezia melena and FOBT is negative. Current Visit: Yes Status: Acute Code(s): D64.9 - ANEMIA, UNSPECIFIED SNOMED Code(s): 399659535 (2) Warfarin-induced coagulopathy Current Visit: Yes Status: Acute Code(s): D68.32 - HEMORRHAGIC DISORD D/T EXTRINSIC CIRCULATING ANTICOAGULANTS; T45.515A - ADVERSE EFFECT OF ANTICOAGULANTS, INITIAL ENCOUNTER SNOMED Code(s): 28134950 (3) Atrial fibrillation Current Visit: Yes Status: Acute Code(s): I48.91 - UNSPECIFIED ATRIAL FIBRILLATION SNOMED Code(s): 46604874 (4) H/O aortic valve replacement Current Visit: Yes Status: Acute Code(s): Z95.2 - PRESENCE OF PROSTHETIC HEART VALVE SNOMED Code(s): 3830610529466 (5) Rib pain on left side Current Visit: No Status: Acute Code(s): R07.81 - PLEURODYNIA SNOMED Code(s): 103520553 Plan: 1. Patient is requesting conservative measures unless he manifests an active GI bleed, he is not interested in pursuing with EGD colonoscopy at this time which seems to be reasonable. Continue to monitor CBC closely. PT/INR monitoring. Anticoagulation is presently on hold. Thank you for this kind referral and the opportunity to participate in the care of your patient. This consultation was discussed with Dr. Salgado. The impression and plan of care have been directed as dictated.
--- NOTE | 2019-04-19 11:55 | P.HPIM ---
History of Present Illness H&P Date: 04/19/19 Chief Complaint: Fatigue and weakness This is an 79-year-old male with a past medical history of coronary artery disease with stenting , aortic valve replacement with porcine valve on anticoagulation with Coumadin, atrial fibrillation presents emergency Department with chief complaint of fatigue/weakness and mild shortness of breath. Patient states that he just felt extremity fatigue of last 2 days with no other associated symptoms. He is concerned that he is in A. fib he states that he's had a history of A. fib and takes Coumadin for this. Patient states that he had a bout of A. fib in December and he felt similar. He has no complaints of palpitations at this time. Patient does admit that he's had some ongoing intercostal issues in which she's had rib discomfort and apparently has an appointment with anesthesia tomorrow to be evaluated for nerve block. Patient states that he's been on multiple bouts of oral steroids. Patient denies fever, chills, productive cough, headache or dizziness. Patient did have a fall last Friday states that he has bruising from his right shoulder down his chest and right leg. Patient also states that he received a phone call from Dr. Hwang his security coordinator or Friday stating that his INR was very elevated at 8.3 and he was told to discontinue his Coumadin and Plavix and was given vitamin K. In the ER the patient had a comprehensive workup EKG showed a paced rhythm with a heart rate of 65, chest x-ray showed cardiomegaly and left lower lobe atelectasis, shoulder x-ray consistent with rotator cuff pathology. Admission labs hemoglobin of 8.3 hematocrit 27, platelet 118, PT INR 19.5 and 2 respect ively, troponin less than 0.019, stool Hemoccult negative Review of Systems pertinent positives per HPI all other systems was negative Past Medical History Past Medical History: Atrial Fibrillation, Cancer, GERD/Reflux, Hypertension, Osteoarthritis (OA), Prostate Disorder, Vascular Disorder Additional Past Medical History / Comment(s): HX OF PROSTATE AND SKIN CANCER, [employer] PACEMAKER, [facility] HEART VALVE (COW), TORN LEFT ROTATOR CUFF, DEGENERATIVE ARTHRITIS IN BACK WITH PAIN, LOW IRON AND LEG CRAMPS, R foot OA-pt wears a brace. dislocated shoulder interecostal neuroelgia History of Any Multi-Drug Resistant Organisms: None Reported Past Surgical History: Cardiac Valve Replacement, Cholecystectomy, Heart Catheterization, Hernia Repair, Joint Replacement, Orthopedic Surgery, Pacemaker Additional Past Surgical History / Comment(s): 07/09/16 Reverse L shoulder rotator cuff repair arthroplasty. Other surgical HX: AORTIC VALVE REPLACEMENT ([facility]) ,BILATERAL GREAT TOES JT REPAIR,LEFT SHOULDER, PAIN CLINIC MD OCEDURE, CATARACTS WITH LENS IMPLANTS , EMILEE INGUINAL HERNIAS, HIATAL HERNIA., [employer] PACEMAKER. STENT RCA 08/27/18 Past Anesthesia/Blood Transfusion Reactions: Motion Sickness, Postoperative Nausea & Vomiting (PONV) Type of Cardiac Device: Permanent Pacemaker Device Placement Date:: 2010 LT CHEST Past Psychological History: No Psychological Hx Reported Smoking Status: Never smoker Past Alcohol Use History: Occasional Past Drug Use History: None Reported - Past Family History Brother(s) Family Medical History: Cancer Additional Family Medical History / Comment(s): BROTHERS X2 PROSTATE,HIATAL HERNIA Mother Family Medical History: Congestive Heart Failure (CHF) Additional Family Medical History / Comment(s): EMPHYSEMA Father Family Medical History: Congestive Heart Failure (CHF) Additional Family Medical History / Comment(s): EMPHYSEMA Medications and Allergies Home Medications Medication Instructions Recorded Confirmed Type Diclofenac Sodium [Voltaren] 75 mg PO DIRECTED 02/02/15 04/19/19 History Hydrochlorothiazide [Hydrodiuril] 25 mg PO QAM 02/02/15 04/19/19 History Metoprolol Tartrate [Lopressor] 50 mg PO BID 02/02/15 04/19/19 History Omeprazole [PriLOSEC] 20 mg PO DAILY 02/02/15 04/19/19 History Ramipril [Altace] 5 mg PO QAM 02/02/15 04/19/19 History Terazosin [Hytrin] 5 mg PO HS 02/02/15 04/19/19 History traMADol HCL [Ultram] 50 mg PO TID PRN 02/02/15 04/19/19 History Ascorbic Acid [Vitamin C] 500 mg PO DAILY 08/25/15 04/19/19 History Cholecalciferol [Vitamin D3 (25 1,000 unit PO DAILY 08/25/15 04/19/19 History Mcg = 1000 Iu)] Multivitamins, Thera [Multivitamin 1 tab PO DAILY 08/25/15 04/19/19 History (formulary)] Acetaminophen Tab [Tylenol] 650 mg PO Q4-6H PRN 07/05/16 04/19/19 History Glucosam/Ray-Msm1/C/Kai/Bosw 1 tab PO BID 07/05/16 04/19/19 History [Glucosamine-Chondroitin Tablet] Iron 28mg 28 mg PO HS 07/05/16 04/19/19 History Magnesium Oxide [Mag-Ox] 250 mg PO HS 07/05/16 04/19/19 History Nitroglycerin Sl Tabs [Nitrostat] 0.4 mg SUBLINGUAL Q5M PRN #25 tab 08/28/18 04/19/19 Rx Tamsulosin HCl [Flomax] 0.4 mg PO HS 08/28/18 04/19/19 History HYDROcodone/APAP 7.5-325MG [[place] 1 tab PO Q6HR PRN 3 Days #12 tab 03/26/19 04/19/19 Rx 7.5-325] Turmeric Root Extract [Turmeric] 500 mg PO DAILY 03/26/19 04/19/19 History Ubidecarenone [Co Q-10] 100 mg PO DAILY 03/26/19 04/19/19 History Warfarin [Coumadin] 5 mg PO DIRECTED 03/26/19 04/19/19 History Clopidogrel [Plavix] 75 mg PO DAILY 03/28/19 04/19/19 History Fish Oil/Dha/Epa [Fish Oil 1,200 1 cap PO DAILY 03/28/19 04/19/19 History mg Fish Oil] Lidocaine 5% Patch [Lidoderm] 1 patch TOPICAL DAILY #30 patch 03/28/19 04/19/19 Rx Allergies Allergy/AdvReac Type Severity Reaction Status Date / Time No Known Allergies Allergy Verified 04/19/19 07:44 Physical Exam Vitals: Vital Signs Temp Pulse Pulse Resp BP BP Pulse Ox 04/19/19 11:04 98.2 F 78 20 120/57 87 L 04/19/19 10:34 76 18 111/69 98 04/19/19 09:18 84 16 119/56 99 04/19/19 07:16 62 16 126/67 94 L 04/19/19 05:33 98.6 F 72 19 116/59 96 Intake and Output 04/18/19 04/19/19 04/19/19 22:59 06:59 14:59 Other: Weight 73.482 kg Constitutional: No acute distress, conversant, pleasant Eyes: Anicteric sclerae, moist conjunctiva, no lid-lag, PERRLA ENMT: NC/AT,Oropharynx clear, no erythema, exudates Neck:Supple, FROM, no masses, or JVD, No carotid bruits; No thyromegaly Lungs: Clear to auscultation, Clear to percussion, Normal respiratory effort, no accessory muscle use Cardiovascular: Irregularly irregular with normal heart rate, No murmurs, gallops, or rubs no peripheral edema Abdominal: Soft Nontender, nom distended, no guarding, no rebound or rigidity, Normoactive bowel sounds No hepatomegaly, No splenomegaly, No palpable mass No abdominal wall hernia noted Skin: Normal temperature, tone, texture, turgor, No induration No subcutaneous nodules, No rash, lesions, No ulcers Extremities:No digital cyanosis No clubbing, Pedal pulses intact and symmetric al Radial pulses intact and symmetrical Normal gait and station, No calf tenderness Psychiatric: Alert and oriented to person, place and time, Appropriate affect Intact judgement Neuro: Muscles Strength 5/5 in all 4 extremities, Sensation to light touch grossly present throughout, Cranial nerves II-XII grossly intact. No focal sensory deficits Results CBC & Chem 7: 04/19/19 05:51 04/19/19 05:51 Labs: Abnormal Lab Results - Last 24 Hours (Table) 04/19/19 04/19/19 04/19/19 Range/Units 05:51 05:51 05:51 RBC 2.71 L (4.30-5.90) m/uL Hgb 8.3 L D (13.0-17.5) gm/dL Hct 27.0 L (39.0-53.0) % MCHC 30.7 L (31.0-37.0) g/dL Plt Count 118 L (150-450) k/uL Lymphocytes # 0.4 L (1.0-4.8) k/uL PT 19.5 H (9.0-12.0) sec INR 2.0 H (<1.2) APTT 48.3 H (22.0-30.0) sec BUN 35 H (9-20) mg/dL Glucose 117 H (74-99) mg/dL ALT 16 L (21-72) U/L Total Protein 5.4 L (6.3-8.2) g/dL Albumin 3.1 L (3.5-5.0) g/dL Assessment and Plan (1) Symptomatic anemia Current Visit: Yes Status: Acute Code(s): D64.9 - ANEMIA, UNSPECIFIED SNOMED Code(s): 286840091 (2) Warfarin-induced coagulopathy Current Visit: Yes Status: Acute Code(s): D68.32 - HEMORRHAGIC DISORD D/T EXTRINSIC CIRCULATING ANTICOAGULANTS; T45.515A - ADVERSE EFFECT OF ANTICOAGULANTS, INITIAL ENCOUNTER SNOMED Code(s): 71204909 (3) Atrial fibrillation Current Visit: Yes Status: Acute Code(s): I48.91 - UNSPECIFIED ATRIAL FIBRILLATION SNOMED Code(s): 04368190 (4) Warfarin-induced coagulopathy Current Visit: Yes Status: Acute Code(s): D68.32 - HEMORRHAGIC DISORD D/T EXTRINSIC CIRCULATING ANTICOAGULANTS; T45.515A - ADVERSE EFFECT OF ANTICOAGULANTS, INITIAL ENCOUNTER SNOMED Code(s): 63855764 (5) H/O aortic valve replacement Current Visit: Yes Status: Acute Code(s): Z95.2 - PRESENCE OF PROSTHETIC HEART VALVE SNOMED Code(s): 5744150015596 (6) CAD (coronary artery disease) Current Visit: Yes Status: Acute Code(s): I25.10 - ATHSCL HEART DISEASE OF [place] CORONARY ARTERY W/O ANG PCTRS SNOMED Code(s): 06398259 Plan: The patient is admitted anticipated greater than 2 midnight stay with sym ptomatic anemia after presenting with a hemoglobin of 8.3 with complaints of weakness and fatigue. Admission hemoglobin represents approximately 5 g drop in hemoglobin in approximately 3 weeks. Stool Hemoccult is negative, will order iron studies and continue to trend hemoglobin will start the patient on PPI therapy with Protonix and consult GI. The patient apparently had a Coumadin- induced coagulopathy with a previously supratherapeutic INR at 8.3 now down to 2, we'll continue to hold his Coumadin and Plavix and give him a dose of vitamin K. Cardiology will also be consulted for further recommendations. The patient apparently has intercostal neuralgia who is scheduled to see anesthesia tomorrow to inpatient consult for the patient to be evaluated for possible nerve block.we'll continue to follow patient's clinical course. CODE STATUS : Full code Discussed plan of care with : Patient and his Surrogate decision-maker : Madalyn Anticipated discharge : 1-[address] : Home Prophylaxis : SCDs and PPI therapy
[2019-04-19] MEDS: HYDROcodone/APAP 7.5-325MG 1 EACH TAB PO PRN ×2 (12:30→17:53)
[2019-04-19] MEDS: PANTOPRAZOLE 40 MG/10 ML VIAL IVP SCH (12:33)
[2019-04-19 14:35] LABS: Basophils % (A) 0 %; Eosinophils # (A) 0.2 k/uL (0-0.7); Eosinophils % (A) 2 %; HCT 26.1 % (39.0-53.0); HGB 8.4 gm/dL (13.0-17.5); Hypochromasia Slight; Lymphocytes # (A) 0.3 k/uL (1.0-4.8); Lymphocytes % (A) 5 %; MCH 32.7 pg (25.0-35.0); MCV 102.2 fL (80.0-100.0); Macrocytosis Slight; Monocytes # (A) 0.5 k/uL (0-1.0); Monocytes % (A) 7 %; Neutrophils # (A) 6.1 k/uL (1.3-7.7); Neutrophils % (A) 84 %; Platelet Count 116 k/uL (150-450); RBC 2.55 m/uL (4.30-5.90); WBC 7.2 k/uL (3.8-10.6)
--- NOTE | 2019-04-19 16:02 | P.PAINCN ---
History of Present Illness - Reason for Consult Consult date: 04/19/19 - History of Present Illness This is a 79-year-old patient with a past medical history of coronary artery disease with stenting , aortic valve replacement with porcine valve on anticoagulation with Coumadin, atrial fibrillation referred by Dr. Camp for chronic pain in left rib cage. This pain began on March 10 after he was riding in a tractor. [facility] [place] [facility] [place] who has performed lumbar radiofrequency ablations and possibly SI joint injections with good relief. He has not yet had his rib pain addressed. He was scheduled to be seen in their clinic tomorrow, however he suffered a fall and was admitted to the hospital and he will be unable to make the appointment. Patient has been taking medications from primary care physician including lido jeff patches, Voltaren patches, Tibbie with some relief. Patient recently suffered from a fall and has multiple bruises. Of note, he is on Plavix and Coumadin (last dose 04/14/2019) and on admission to the hospital his INR was 8. It has since down trended to 2. Patient also denies new-onset weakness, bowel/bladder incontinence, or any other signs or symptoms of cauda equina syndrome. There are no signs of acute intoxication, and no indications of medication diversion or overuse. In addition to above, 13-point review of systems is also negative for chest pain, shortness of breath, changes in vision, changes in hearing, new onset weakness, abdominal pain, diarrhea, extreme fatigue, malaise, fever, skin changes, homicidal or suicidal ideation, or bowel or bladder incontinence. Physical exam: Vital Signs: Reviewed in EMR GENERAL: Well appearing, in no acute distress PSYCH: Mood and affect is appropriate. Awake, alert, and oriented SKIN: Multiple bruises/ecchymosis notable in right flank, arms HEENT: Normocephalic, atraumatic. EOM intact CV: No pedal edema RESP: Respirations are unlabored, no audible wheezing GI: Abdomen non-distended MUSCULOSKELETAL: Bilateral upper and lower extremity strength is normal and symmetric. No atrophy or tone abnormalities are noted. Thoracic region: Tenderness along left rib cage, likely along the ribs 6, 7, 8 Extremities: Peripheral joint ROM is full and pain free without obvious instability or laxity in all four extremities. NEUR: Cranial nerves are grossly intact. Assessment: 1. Left-sided intercostal neuralgia 2. atrial fibrillation and coronary artery stents on Coumadin and Plavix, last dose 04/14/2019 last INR 2. Patient has received vitamin K. Plan: 1. Procedures: We'll plan for left sided intercostal nerve blocks at ribs 6, 7, 8; final levels to be determined with manual palpation under fluoroscopy. To be done on or after 04/21/2019 as this will be 7 days following Plavix administration. INR to be drawn on day of procedure. Patient to continue to hold Plavix and Coumadin until after procedure, with okay from ragman. 2. Medications: Continue current medications, no changes 3. Disposition: For above-mentioned procedure, we'll likely schedule as outpatient Past Medical History Past Medical History: Atrial Fibrillation, Cancer, GERD/Reflux, Hypertension, Osteoarthritis (OA), Prostate Disorder, Vascular Disorder Additional Past Medical History / Comment(s): HX OF PROSTATE AND SKIN CANCER, [employer] PACEMAKER, [facility] HEART VALVE (COW), TORN LEFT ROTATOR CUFF, DEGENERATIVE ARTHRITIS IN BACK WITH PAIN, LOW IRON AND LEG CRAMPS, R foot OA-pt wears a brace. dislocated shoulder interecostal neuroelgia History of Any Multi-Drug Resistant Organisms: None Reported Past Surgical History: Cardiac Valve Replacement, Cholecystectomy, Heart Catheterization, Hernia Repair, Joint Replacement, Orthopedic Surgery, Pacemaker Additional Past Surgical History / Comment(s): 07/09/16 Reverse L shoulder rotator cuff repair arthroplasty. Other surgical HX: AORTIC VALVE REPLACEMENT ([facility]) ,BILATERAL GREAT TOES JT REPAIR,LEFT SHOULDER, PAIN CLINIC PROCEDURE, CATARACTS WITH LENS IMPLANTS , EMILEE INGUINAL HERNIAS, HIATAL HERNIA., [employer] PACEMAKER. STENT RCA 08/27/18 Past Anesthesia/Blood Transfusion Reactions: Motion Sickness, Postoperative Nausea & Vomiting (PONV) Type of Cardiac Device: Permanent Pacemaker Device Placement Date:: 2010 LT CHEST Smoking Status: Never smoker - Past Family History Brother(s) Family Medical History: Cancer Additional Family Medical History / Comment(s): BROTHERS X2 PROSTATE,HIATAL HERNIA Mother Family Medical History: Congestive Heart Failure (CHF) Additional Family Medical History / Comment(s): EMPHYSEMA Father Family Medical History: Congestive Heart Failure (CHF) Additional Family Medical History / Comment(s): EMPHYSEMA Medications and Allergies Home Medications Medication Instructions Recorded Confirmed Type Diclofenac Sodium [Voltaren] 75 mg PO DIRECTED 02/02/15 04/19/19 History Hydrochlorothiazide [Hydrodiuril] 25 mg PO QAM 02/02/15 04/19/19 History Metoprolol Tartrate [Lopressor] 50 mg PO BID 02/02/15 04/19/19 History Omeprazole [PriLOSEC] 20 mg PO DAILY 02/02/15 04/19/19 History Ramipril [Altace] 5 mg PO QAM 02/02/15 04/19/19 History Terazosin [Hytrin] 5 mg PO HS 02/02/15 04/19/19 History traMADol HCL [Ultram] 50 mg PO TID PRN 02/02/15 04/19/19 History Ascorbic Acid [Vitamin C] 500 mg PO DAILY 08/25/15 04/19/19 History Cholecalciferol [Vitamin D3 (25 1,000 unit PO DAILY 08/25/15 04/19/19 History Mcg = 1000 Iu)] Multivitamins, Thera [Multivitamin 1 tab PO DAILY 08/25/15 04/19/19 History (formulary)] Acetaminophen Tab [Tylenol] 650 mg PO Q4-6H PRN 07/05/16 04/19/19 History Glucosam/Ray-Msm1/C/Kai/Bosw 1 tab PO BID 07/05/16 04/19/19 History [Glucosamine-Chondroitin Tablet] Iron 28mg 28 mg PO HS 07/05/16 04/19/19 History Magnesium Oxide [Mag-Ox] 250 mg PO HS 07/05/16 04/19/19 History Nitroglycerin Sl Tabs [Nitrostat] 0.4 mg SUBLINGUAL Q5M PRN #25 tab 08/28/18 04/19/19 Rx Tamsulosin HCl [Flomax] 0.4 mg PO HS 08/28/18 04/19/19 History HYDROcodone/APAP 7.5-325MG [[place] 1 tab PO Q6HR PRN 3 Days #12 tab 03/26/19 04/19/19 Rx 7.5-325] Turmeric Root Extract [Turmeric] 500 mg PO DAILY 03/26/19 04/19/19 History Ubidecarenone [Co Q-10] 100 mg PO DAILY 03/26/19 04/19/19 History Warfarin [Coumadin] 5 mg PO DIRECTED 03/26/19 04/19/19 History Clopidogrel [Plavix] 75 mg PO DAILY 03/28/19 04/19/19 History Fish Oil/Dha/Epa [Fish Oil 1,200 1 cap PO DAILY 03/28/19 04/19/19 History mg Fish Oil] Lidocaine 5% Patch [Lidoderm] 1 patch TOPICAL DAILY #30 patch 03/28/19 04/19/19 Rx Allergies Allergy/AdvReac Type Severity Reaction Status Date / Time No Known Allergies Allergy Verified 04/19/19 07:44 Physical Exam Vitals: Vital Signs Temp Pulse Pulse Resp BP BP Pulse Ox 04/19/19 11:04 98.2 F 78 20 120/57 87 L 04/19/19 10:34 76 18 111/69 98 04/19/19 09:18 84 16 119/56 99 04/19/19 07:16 62 16 126/67 94 L 04/19/19 05:33 98.6 F 72 19 116/59 96 Intake and Output 04/19/19 04/19/19 04/19/19 06:59 14:59 22:59 Other: # Voids 1 Weight 73.482 kg Results CBC & Chem 7: 04/19/19 14:19 04/19/19 05:51 Labs: Abnormal Lab Results - Last 24 Hours (Table) 04/19/19 04/19/19 04/19/19 Range/Units 05:51 05:51 05:51 RBC 2.71 L (4.30-5.90) m/uL Hgb 8.3 L D (13.0-17.5) gm/dL Hct 27.0 L (39.0-53.0) % MCV (80.0-100.0) fL MCHC 30.7 L (31.0-37.0) g/dL Plt Count 118 L (150-450) k/uL Lymphocytes # 0.4 L (1.0-4.8) k/uL PT 19.5 H (9.0-12.0) sec INR 2.0 H (<1.2) APTT 48.3 H (22.0-30.0) sec BUN 35 H (9-20) mg/dL Glucose 117 H (74-99) mg/dL ALT 16 L (21-72) U/L Total Protein 5.4 L (6.3-8.2) g/dL Albumin 3.1 L (3.5-5.0) g/dL 04/19/19 Range/Units 14:19 RBC 2.55 L (4.30-5.90) m/uL Hgb 8.4 L (13.0-17.5) gm/dL Hct 26.1 L (39.0-53.0) % MCV 102.2 H (80.0-100.0) fL MCHC (31.0-37.0) g/dL Plt Count 116 L (150-450) k/uL Lymphocytes # 0.3 L (1.0-4.8) k/uL PT (9.0-12.0) sec INR (<1.2) APTT (22.0-30.0) sec BUN (9-20) mg/dL Glucose (74-99) mg/dL ALT (21-72) U/L Total Protein (6.3-8.2) g/dL Albumin (3.5-5.0) g/dL PQRS Measure Charge Sheet PQRS Narrative: Smoking Status Never smoker Do You Want the Pneumonia Vaccine Up to Date Vaccine AT THIS TIME? Blood Pressure [Left Arm] 120/57 Blood Pressure 111/69 Pain Intensity [Left Chest] 2 Pain Intensity 2 Pain Scale Used Numeric (1 - 10) Scale Used Numeric (1 - 10) Home Medications: Ambulatory Orders Diclofenac Sodium [Voltaren] 75 mg PO DIRECTED 02/02/15 Hydrochlorothiazide [Hydrodiuril] 25 mg PO QAM 02/02/15 Metoprolol Tartrate [Lopressor] 50 mg PO BID 02/02/15 Omeprazole [PriLOSEC] 20 mg PO DAILY 02/02/15 Ramipril [Altace] 5 mg PO QAM 02/02/15 Terazosin [Hytrin] 5 mg PO HS 02/02/15 traMADol HCL [Ultram] 50 mg PO TID PRN 02/02/15 Ascorbic Acid [Vitamin C] 500 mg PO DAILY 08/25/15 Cholecalciferol [Vitamin D3 (25 Mcg = 1000 Iu)] 1,000 unit PO DAILY 08/25/15 Multivitamins, Thera [Multivitamin (formulary)] 1 tab PO DAILY 08/25/15 Acetaminophen Tab [Tylenol] 650 mg PO Q4-6H PRN 07/05/16 Glucosam/Ray-Msm1/C/Kai/Bosw [Glucosamine-Chondroitin Tablet] 1 tab PO BID 07/05/16 Iron 28mg 28 mg PO HS 07/05/16 Magnesium Oxide [Mag-Ox] 250 mg PO HS 07/05/16 Nitroglycerin Sl Tabs [Nitrostat] 0.4 mg SUBLINGUAL Q5M PRN #25 tab 08/28/18 Tamsulosin HCl [Flomax] 0.4 mg PO HS 08/28/18 HYDROcodone/APAP 7.5-325MG [[place] 7.5-325] 1 tab PO Q6HR PRN 3 Days #12 tab 03/26/19 Turmeric Root Extract [Turmeric] 500 mg PO DAILY 03/26/19 Ubidecarenone [Co Q-10] 100 mg PO DAILY 03/26/19 Warfarin [Coumadin] 5 mg PO DIRECTED 03/26/19 Clopidogrel [Plavix] 75 mg PO DAILY 03/28/19 Fish Oil/Dha/Epa [Fish Oil 1,200 mg Fish Oil] 1 cap PO DAILY 03/28/19 Lidocaine 5% Patch [Lidoderm] 1 patch TOPICAL DAILY #30 patch 03/28/19
[2019-04-19 19:25] LABS: Basophils % (A) 0 %; Eosinophils # (A) 0.2 k/uL (0-0.7); Eosinophils % (A) 2 %; HCT 25.1 % (39.0-53.0); HGB 8.1 gm/dL (13.0-17.5); Hypochromasia Slight; Lymphocytes # (A) 0.3 k/uL (1.0-4.8); Lymphocytes % (A) 4 %; MCH 32.8 pg (25.0-35.0); MCHC 32.3 g/dL (31.0-37.0); MCV 101.7 fL (80.0-100.0); Macrocytosis Slight; Mean Platelet Volume 8.9; Monocytes # (A) 0.5 k/uL (0-1.0); Monocytes % (A) 6 %; Neutrophils # (A) 6.5 k/uL (1.3-7.7); Neutrophils % (A) 86 %; Platelet Count 124 k/uL (150-450); RBC 2.47 m/uL (4.30-5.90); RDW 15.2 % (11.5-15.5); WBC 7.6 k/uL (3.8-10.6)
[2019-04-19] MEDS ORDERED: NON-FORMULARY DRUG (Diclofenac Sodium 75 MG) PO SCH (19:45)
[2019-04-19 20:06] LABS: Iron Saturation 9.44 (15.00-50.00)
[2019-04-19] MEDS: METOPROLOL TARTRATE 50 MG TAB PO SCH (21:09)
[2019-04-19] MEDS: MAGNESIUM OXIDE 400 MG TAB PO SCH (21:09)
[2019-04-19] MEDS: DOXAZOSIN 4 MG TAB PO SCH (21:09)
[2019-04-19] MEDS: TAMSULOSIN 0.4 MG CAP.ER.24H PO SCH (21:09)
[2019-04-19] MEDS: DICLOFENAC SODIUM GEL 100 GM TUBE TOPICAL SCH (21:10)
[2019-04-19] MEDS: MORPHINE SULFATE 2 MG/ML SYRINGE IVP PRN (21:50)
[2019-04-20] MEDS: HYDROcodone/APAP 7.5-325MG 1 EACH TAB PO PRN ×4 (01:05→21:23)
[2019-04-20] MEDS: MORPHINE SULFATE 2 MG/ML SYRINGE IVP PRN (05:10)
[2019-04-20 07:37] LABS: INR 1.1 (<1.2); Prothrombin Time 11.7 sec (9.0-12.0)
[2019-04-20] MEDS: ASCORBIC ACID 500 MG TAB PO SCH (07:42)
[2019-04-20] MEDS: METOPROLOL TARTRATE 50 MG TAB PO SCH ×2 (07:42→21:23)
[2019-04-20] MEDS: HYDROCHLOROTHIAZIDE 25 MG TAB PO SCH (07:42)
[2019-04-20] MEDS: CHOLECALCIFEROL 1,000 UNIT TAB PO SCH (07:42)
[2019-04-20] MEDS: LISINOPRIL 20 MG TAB PO SCH (07:43)
[2019-04-20] MEDS: LIDOCAINE 5% PATCH TOPICAL SCH (07:43)
[2019-04-20] MEDS: PANTOPRAZOLE 40 MG/10 ML VIAL IVP SCH (07:43)
[2019-04-20] MEDS: DICLOFENAC SODIUM GEL 100 GM TUBE TOPICAL SCH ×4 (07:44→21:27)
[2019-04-20] MEDS ORDERED: NON-FORMULARY DRUG (Ubidecarenone [Co Q-10] 100 MG) PO SCH (09:00)
[2019-04-20 09:38] LABS: Albumin 2.8 g/dL (3.5-5.0); Basophils % (A) 0 %; Calcium 8.3 mg/dL (8.4-10.2); Eosinophils # (A) 0.2 k/uL (0-0.7); Eosinophils % (A) 3 %; HCT 26.9 % (39.0-53.0); HGB 8.6 gm/dL (13.0-17.5); Hypochromasia Slight; Lymphocytes # (A) 0.4 k/uL (1.0-4.8); Lymphocytes % (A) 6 %; MCH 32.3 pg (25.0-35.0); Macrocytosis Slight; Mean Platelet Volume 9.2; Monocytes # (A) 0.4 k/uL (0-1.0); Monocytes % (A) 6 %; Neutrophils # (A) 5.9 k/uL (1.3-7.7); Neutrophils % (A) 84 %; Platelet Count 136 k/uL (150-450); Potassium 4.1 mmol/L (3.5-5.1); RBC 2.66 m/uL (4.30-5.90); RDW 14.3 % (11.5-15.5); Total Protein 5.1 g/dL (6.3-8.2)
--- NOTE | 2019-04-20 10:50 | P.PN ---
Subjective Progress Note Date: 04/20/19 Patient seen and examined at bedside, reports he is feeling better today she's feeling stronger not as weak. Patient happy with a plan going forward, seen by GI yesterday and no plan for endoscopic procedures at this time due to no active bleeding and negative FOBT. Hemoglobin 8.6 this morning. Patient seen by anesthesia and planning for intercostal nerve block tomorrow Objective - Vital Signs Vital signs: Vital Signs Temp 98.2 F 04/20/19 05:00 Pulse 70 04/20/19 05:00 Resp 18 04/20/19 05:00 BP 104/59 04/20/19 05:00 Pulse Ox 92 L 04/20/19 05:00 Intake & Output 04/19/19 04/20/19 04/20/19 18:59 06:59 18:59 Intake Total 350 Balance 350 Intake: Oral 350 Other: Voiding Method Urinal Toilet Urinal # Voids 1 1 - Exam Constitutional: No acute distress, conversant, pleasant Eyes: Anicteric sclerae, moist conjunctiva, no lid-lag, PERRLA ENMT: NC/AT,Oropharynx clear, no erythema, exudates Neck:Supple, FROM, no masses, or JVD, No carotid bruits; No thyromegaly Lungs: Clear to auscultation, Clear to percussion, Normal respiratory effort, no accessory muscle use to palpation over the left-sided ribs at 678 Cardiovascular: Irregularly irregular with normal rate, No murmurs, gallops, or rubs no peripheral edema Abdominal: Soft Nontender, nom distended, no guarding, no rebound or rigidity, Normoactive bowel sounds No hepatomegaly, No splenomegaly, No palpable mass No abdominal wall hernia noted Skin: Multiple areas of bruising hematoma and ecchymosis on the right flank and shoulder Extremities:No digital cyanosis No clubbing, Pedal pulses intact and symmetrical Radial pulses intact and symmetrical Normal gait and station, No calf tenderness Psychiatric: Alert and oriented to person, place and time, Appropriate affect Intact judgement Neuro: Muscles Strength 5/5 in all 4 extremities, Sensation to light touch grossly present throughout, Cranial nerves II-XII grossly intact. No focal sensory deficits - Labs CBC & Chem 7: 04/20/19 06:54 04/20/19 06:54 Labs: Abnormal Lab Results - Last 24 Hours (Table) 04/19/19 04/19/19 04/19/19 Range/Units 14:19 14:19 18:56 RBC 2.55 L 2.47 L (4.30-5.90) m/uL Hgb 8.4 L 8.1 L (13.0-17.5) gm/dL Hct 26.1 L 25.1 L (39.0-53.0) % MCV 102.2 H 101.7 H (80.0-100.0) fL Plt Count 116 L 124 L (150-450) k/uL Lymphocytes # 0.3 L 0.3 L (1.0-4.8) k/uL BUN (9-20) mg/dL Glucose (74-99) mg/dL Calcium (8.4-10.2) mg/dL Iron 27 L (65-175) ug/dL Iron Saturation 9.44 L (15.00-50.00) Ferritin 464.6 H (22.0-322.0) ng/mL ALT (21-72) U/L Total Protein (6.3-8.2) g/dL Albumin (3.5-5.0) g/dL 04/20/19 04/20/19 Range/Units 06:54 06:54 RBC 2.66 L (4.30-5.90) m/uL Hgb 8.6 L (13.0-17.5) gm/dL Hct 26.9 L (39.0-53.0) % MCV 101.0 H (80.0-100.0) fL Plt Count 136 L (150-450) k/uL Lymphocytes # 0.4 L (1.0-4.8) k/uL BUN 29 H (9-20) mg/dL Glucose 102 H (74-99) mg/dL Calcium 8.3 L (8.4-10.2) mg/dL Iron (65-175) ug/dL Iron Saturation (15.00-50.00) Ferritin (22.0-322.0) ng/mL ALT 16 L (21-72) U/L Total Protein 5.1 L (6.3-8.2) g/dL Albumin 2.8 L (3.5-5.0) g/dL Assessment and Plan (1) Symptomatic anemia Narrative/Plan: * Likely secondary to fall with subsequent hematoma and ecchymosis on his right flank and right shoulder * Hemoglobin 8.6 today currently stable * Appreciate GI recommendations, no plans for EGD or colonoscopy at this time Current Visit: Yes Status: Acute Code(s): D64.9 - ANEMIA, UNSPECIFIED SNOMED Code(s): 755481168 (2) Warfarin-induced coagulopathy Narrative/Plan: * INR down to 1.1 after vitamin K 5 mg given yesterday * We'll continue to hold Coumadin until after the patient's procedure tomorrow Current Visit: Yes Status: Acute Code(s): D68.32 - HEMORRHAGIC DISORD D/T EXTRINSIC CIRCULATING ANTICOAGULANTS; T45.515A - ADVERSE EFFECT OF ANTICOAGULANTS, INITIAL ENCOUNTER SNOMED Code(s): 98776969 (3) Atrial fibrillation Narrative/Plan: * Continues with controlled ventricular rate * Continue with metoprolol * anticoagulations with Coumadin currently held, may be candidate for DOAC * Patient being seen by cardiology today Current Visit: Yes Status: Acute Code(s): I48.91 - UNSPECIFIED ATRIAL FIBRILLATION SNOMED Code(s): 73735293 (4) H/O aortic valve replacement Narrative/Plan: * Coagulation will be restarted post intercostal nerve block Current Visit: Yes Status: Chronic Code(s): Z95.2 - PRESENCE OF PROSTHETIC HEART VALVE SNOMED Code(s): 0720617679246 (5) Intercostal neuralgia Narrative/Plan: * Appreciate anesthesia recommendations * Plan for intercostal nerve block tomorrow Current Visit: Yes Status: Acute Code(s): G58.8 - OTHER SPECIFIED MONONEUROPATHIES SNOMED Code(s): 771048888 (6) CAD (coronary artery disease) Current Visit: Yes Status: Acute Code(s): I25.10 - ATHSCL HEART DISEASE OF [place] CORONARY ARTERY W/O ANG PCTRS SNOMED Code(s): 91429237 Plan: Disposition * Patient to have nerve block tomorrow and subsequently discharged home
--- NOTE | 2019-04-20 10:55 | P.PN ---
Subjective Progress Note Date: 04/20/19 Principal diagnosis: Anemia Denies hematemesis hematochezia melena. Hemoglobin stable 8.6. INR 1.1. Objective - Vital Signs Vital signs: Vital Signs Temp 98.2 F 04/20/19 05:00 Pulse 70 04/20/19 05:00 Resp 18 04/20/19 05:00 BP 104/59 04/20/19 05:00 Pulse Ox 92 L 04/20/19 05:00 Intake & Output 04/19/19 04/20/19 04/20/19 18:59 06:59 18:59 Intake Total 350 Balance 350 Intake: Oral 350 Other: Voiding Method Urinal Toilet Urinal # Voids 1 1 - Exam General appearance: The patient is alert, oriented, in no acute distress. HET: Head is normocephalic and atraumatic. Pupils are equal and reactive. Orop harynx is clear without lesions. Neck: Supple without lymphadenopathy. Trachea midline. Heart: S1 S2. Regular rate and rhythm. Lungs: No crackles or wheezes are heard. Abdomen: Soft, nontender, nondistended with bowel sounds. No peritoneal signs. No palpable organomegaly or masses. Extremities: Grossly ecchymotic to the right lower extremity as well as to the right flank backside extending over to the left ribs and right shoulder. Normal skin color and turgor. No cyanosis, rash, ulceration, clubbing, or edema. Radial and pedal pulses are 2/4 bilaterally. Neurological: No focal deficits. Strength and sensation are grossly intact. - Labs CBC & Chem 7: 04/20/19 06:54 04/20/19 06:54 Labs: Abnormal Lab Results - Last 24 Hours (Table) 04/19/19 04/19/19 04/19/19 Range/Units 14:19 14:19 18:56 RBC 2.55 L 2.47 L (4.30-5.90) m/uL Hgb 8.4 L 8.1 L (13.0-17.5) gm/dL Hct 26.1 L 25.1 L (39.0-53.0) % MCV 102.2 H 101.7 H (80.0-100.0) fL Plt Count 116 L 124 L (150-450) k/uL Lymphocytes # 0.3 L 0.3 L (1.0-4.8) k/uL BUN (9-20) mg/dL Glucose (74-99) mg/dL Calcium (8.4-10.2) mg/dL Iron 27 L (65-175) ug/dL Iron Saturation 9.44 L (15.00-50.00) Ferritin 464.6 H (22.0-322.0) ng/mL ALT (21-72) U/L Total Protein (6.3-8.2) g/dL Albumin (3.5-5.0) g/dL 04/20/19 04/20/19 Range/Units 06:54 06:54 RBC 2.66 L (4.30-5.90) m/uL Hgb 8.6 L (13.0-17.5) gm/dL Hct 26.9 L (39.0-53.0) % MCV 101.0 H (80.0-100.0) fL Plt Count 136 L (150-450) k/uL Lymphocytes # 0.4 L (1.0-4.8) k/uL BUN 29 H (9-20) mg/dL Glucose 102 H (74-99) mg/dL Calcium 8.3 L (8.4-10.2) mg/dL Iron (65-175) ug/dL Iron Saturation (15.00-50.00) Ferritin (22.0-322.0) ng/mL ALT 16 L (21-72) U/L Total Protein 5.1 L (6.3-8.2) g/dL Albumin 2.8 L (3.5-5.0) g/dL Assessment and Plan (1) Warfarin-induced coagulopathy Current Visit: Yes Status: Acute Code(s): D68.32 - HEMORRHAGIC DISORD D/T EXTRINSIC CIRCULATING ANTICOAGULANTS; T45.515A - ADVERSE EFFECT OF ANTICOAGULANTS, INITIAL ENCOUNTER SNOMED Code(s): 29797987 (2) Normocytic anemia Narrative/Plan: 79-year-old male admitted with worsening fatigue and reported outpatient supratherapeutic INR of 8.1 for a history of atrial fibrillation CAD PCI stent and bovine AVR. Patient fell less than 2 weeks ago with visible evidence of diffuse ecchymosis to the right lower extremity right flank backside as well as the left ribs and right shoulder consistent with subcutaneous acute blood loss. Underlying occult GI bleed cannot be excluded however patient denies GI complaints as well as hematemesis hematochezia melena and FOBT is negative. Hemoglobin stable 8.6. Current Visit: Yes Status: Acute Code(s): D64.9 - ANEMIA, UNSPECIFIED SNOMED Code(s): 213187468 (3) Atrial fibrillation Current Visit: Yes Status: Acute Code(s): I48.91 - UNSPECIFIED ATRIAL FIBRILLATION SNOMED Code(s): 53267548 (4) H/O aortic valve replacement Current Visit: Yes Status: Acute Code(s): Z95.2 - PRESENCE OF PROSTHETIC HEART VALVE SNOMED Code(s): 4424028790603 (5) Rib pain on left side Current Visit: No Status: Acute Code(s): R07.81 - PLEURODYNIA SNOMED Code(s): 475870781 Plan: 1. Continue present medical therapy. Discharge per medicine. No further workup from a GI standpoint. Assessment and plan a care discussed with Dr. Salgado
--- NOTE | 2019-04-20 15:05 | P.CRDCN ---
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 He follows with Dr. Hwang in the office. We have been asked to see him in consultation for anemia and GI bleed on coumadin. He presented to the hospital with symptoms of fatigue, generalized weakness and shortness of breath. He states since early September he has been struggling with multiple concerns related to supratherapeutic INR, falls, and recent diagnosis of neuralgia for which he is following closely with pain management. On arrival he was found to be anemic with HGB 8.3 which is a drop from 13.3 03/28/2019. Stool was negative for occult blood. GI service has seen and is no planning any intervention at this time. Coumadin and plavix have been placed on hold for pain injections to take place tomorrow. He is seen and examined sitting up in no acute distress. He denies chest pain, shortness of breath, dizziness or palpitations. EKG reveals atrial paced heart rate is 65. Chest x-ray reveals cardiomegaly, small left lower lobe obesity partially vi sualized fractured right clavicle and humerus. Right shoulder x-ray reveals comminuted fractures involving the distal right clavicle and humeral head. Laboratory data reviewed, WBC 7, hemoglobin 8.6, platelets 136, INR 1.1, sodium 138, potassium 4.1, creatinine 0.99. Current cardiac medications include Coumadin, Plavix 75 mg daily, hydrochlorothiazide 25 mg daily, Lopressor 50 mg twice a day, ramipril 5 mg daily. Most recent cardiac catheterization performed August 2018 reveals left main no evidence of high-grade stenosis, LAD mild intimal disease in the mid segment 20%, circumflex with a 67% plaque in the proximal segment and RCA with a 99% stenosis at the takeoff of the acute marginal branch as well as 60% stenosis in the distal PLV branch. At that time he underwent successful stent placement to the RCA. At the time of my exam: CONSTITUTIONAL: Denies fever. Denies chills. EYES: Denies blurred vision. Denies vision changes. Denies eye pain. EARS, NOSE, MOUTH & THROAT: Denies headache. Denies sore throat. Denies ear pain. CARDIOVASCULAR: Denies chest pain. Denies shortness of breath. Denies orthopnea. Denies PND. Denies palpitations. RESPIRATORY: Denies cough. GASTROINTESTINAL: Denies abdominal pain. Denies diarrhea. Denies constipation. Denies nausea. Denies vomiting. MUSCULOSKELETAL: Denies myalgias. INTEGUMENTARY: Denies pruitis. Denies rash. NEUROLOGIC: Denies numbness. Denies tingling. Denies weakness. PSYCHIATRIC: Denies anxiety. Denies depression. ENDOCRINE: Denies fatigue. Denies weight change. Denies polydipsia. Denies polyurina. GENITOURINARY: Denies burning, hematuria or urgency with micturation. HEMATOLOGIC: Denies history of anemia. Denies bleeding. Blood pressure 104/59 heart rate 70 afebrile maintaining oxygen saturation on nasal cannula GENERAL: This is a 79-year-old occasion male in no apparent distress at the time of my examination. HEENT: Head is atraumatic, normocephalic. Pupils are equal, round. Sclerae anicteric. Conjunctivae are clear. Mucous membranes of the mouth are moist. Neck is supple. There is no jugular venous distention. No carotid bruit is heard. LUNGS: Clear to auscultation no wheezes, rales or rhonchi. No chest wall ten derness is noted on palpation or with deep breathing. HEART: Regular rate and rhythm with systolic ejection murmur at the base and apex, no rubs or gallops. S1 and S2 heard. ABDOMEN: Soft, nontender. Bowel sounds are heard. No organomegaly noted. EXTREMITIES: No evidence of peripheral edema and no calf tenderness noted. Ecchymosis noted to right shoulder, upper arm and right axilla. VASCULAR: Radial and dorsalis pedis pulses palpated, no evidence of clubbing. NEUROLOGIC: Patient is awake, alert and oriented x3. 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 Currently in sinus mechanism. Coronary artery disease s/p recent stent placement, maintained on plavix daily Hypertension Valvular heart disease s/p bio-prosthetic aortic valve repair 2010 s/p permanent pacemaker implantation PLAN Continue to hold coumadin and plavix for pain injection therapy tomorrow. Once appropriate we will resume coumadin only. Plavix can be discontinued as his stent was over 6 months ago. Ongoing medical management. Thank you kindly for this consultation. Nurse Practitioner note has been reviewed, I agree with a documented findings and plan of care. Patient was seen and examined. Past Medical History Past Medical History: Atrial Fibrillation, Cancer, GERD/Reflux, Hypertension, Osteoarthritis (OA), Prostate Disorder, Vascular Disorder Additional Past Medical History / Comment(s): HX OF PROSTATE AND SKIN CANCER, [employer] PACEMAKER, [facility] HEART VALVE (COW), TORN LEFT ROTATOR CUFF, DEGENERATIVE ARTHRITIS IN BACK WITH PAIN, LOW IRON AND LEG CRAMPS, R foot OA-pt wears a brace. dislocated shoulder interecostal neuroelgia History of Any Multi-Drug Resistant Organisms: None Reported Past Surgical History: Cardiac Valve Replacement, Cholecystectomy, Heart Catheterization, Hernia Repair, Joint Replacement, Orthopedic Surgery, Pacemaker Additional Past Surgical History / Comment(s): 07/09/16 Reverse L shoulder rotator cuff repair arthroplasty. Other surgical HX: AORTIC VALVE REPLACEMENT ([facility]) ,BILATERAL GREAT TOES JT REPAIR,LEFT SHOULDER, PAIN CLINIC PROCEDURE, CATARACTS WITH LENS IMPLANTS , EMILEE INGUINAL HERNIAS, HIATAL HERNIA., [employer] PACEMAKER. STENT RCA 08/27/18 Past Anesthesia/Blood Transfusion Reactions: Motion Sickness, Postoperative Nausea & Vomiting (PONV) Type of Cardiac Device: Permanent Pacemaker Device Placement Date:: 2010 LT CHEST Smoking Status: Never smoker - Past Family History Brother(s) Family Medical History: Cancer Additional Family Medical History / Comment(s): BROTHERS X2 PROSTATE,HIATAL HERNIA Mother Family Medical History: Congestive Heart Failure (CHF) Additional Family Medical History / Comment(s): EMPHYSEMA Father Family Medical History: Congestive Heart Failure (CHF) Additional Family Medical History / Comment(s): EMPHYSEMA Medications and Allergies Home Medications Medication Instructions Recorded Confirmed Type Hydrochlorothiazide [Hydrodiuril] 25 mg PO QAM 02/02/15 04/19/19 History Metoprolol Tartrate [Lopressor] 50 mg PO BID 02/02/15 04/19/19 History Omeprazole [PriLOSEC] 20 mg PO DAILY 02/02/15 04/19/19 History Ramipril [Altace] 5 mg PO QAM 02/02/15 04/19/19 History Terazosin [Hytrin] 5 mg PO HS 02/02/15 04/19/19 History traMADol HCL [Ultram] 50 mg PO TID PRN 02/02/15 04/19/19 History Ascorbic Acid [Vitamin C] 500 mg PO DAILY 08/25/15 04/19/19 History Cholecalciferol [Vitamin D3 (25 1,000 unit PO DAILY 08/25/15 04/19/19 History Mcg = 1000 Iu)] Multivitamins, Thera [Multivitamin 1 tab PO DAILY 08/25/15 04/19/19 History (formulary)] Acetaminophen Tab [Tylenol] 650 mg PO Q4-6H PRN 07/05/16 04/19/19 History Glucosam/Ray-Msm1/C/Kai/Bosw 1 tab PO BID 07/05/16 04/19/19 History [Glucosamine-Chondroitin Tablet] Iron 28mg 28 mg PO HS 07/05/16 04/19/19 History Magnesium Oxide [Mag-Ox] 250 mg PO HS 07/05/16 04/19/19 History Nitroglycerin Sl Tabs [Nitrostat] 0.4 mg SUBLINGUAL Q5M PRN #25 tab 08/28/18 04/19/19 Rx Tamsulosin HCl [Flomax] 0.4 mg PO HS 08/28/18 04/19/19 History HYDROcodone/APAP 7.5-325MG [Check 1 tab PO Q6HR PRN 3 Days #12 tab 03/26/19 04/19/19 Rx 7.5-325] Turmeric Root Extract [Turmeric] 500 mg PO DAILY 03/26/19 04/19/19 History Ubidecarenone [Co Q-10] 100 mg PO DAILY 03/26/19 04/19/19 History Warfarin [Coumadin] 5 mg PO DIRECTED 03/26/19 04/19/19 History Clopidogrel [Plavix] 75 mg PO DAILY 03/28/19 04/19/19 History Fish Oil/Dha/Epa [Fish Oil 1,200 1 cap PO DAILY 03/28/19 04/19/19 History mg Fish Oil] Lidocaine 5% Patch [Lidoderm] 1 patch TOPICAL DAILY #30 patch 03/28/19 04/19/19 Rx Diclofenac Sodium Gel [Voltaren 2 gm TOPICAL QID 04/19/19 04/19/19 History Gel] Allergies Allergy/AdvReac Type Severity Reaction Status Date / Time No Known Allergies Allergy Verified 04/19/19 07:44 Physical Exam Vitals: Vital Signs Temp Pulse Pulse Resp BP BP Pulse Ox 04/20/19 05:00 98.2 F 70 18 104/59 92 L 04/19/19 21:00 98.6 F 84 18 149/80 93 L 04/19/19 15:59 97 04/19/19 11:04 98.2 F 78 20 120/57 87 L 04/19/19 10:34 76 18 111/69 98 Intake and Output 04/19/19 04/20/19 04/20/19 22:59 06:59 14:59 Intake Total 350 Balance 350 Intake: Oral 350 Other: Voiding Method Urinal Toilet Urinal # Voids 1 1 Results 04/20/19 06:54 04/20/19 06:54 Coagulation 04/20/19 Range/Units 06:54 PT 11.7 (9.0-12.0) sec CBC 04/19/19 04/19/19 Range/Units 14:19 18:56 WBC 7.2 7.6 (3.8-10.6) k/uL RBC 2.55 L 2.47 L (4.30-5.90) m/uL Hgb 8.4 L 8.1 L (13.0-17.5) gm/dL Hct 26.1 L 25.1 L (39.0-53.0) % Plt Count 116 L 124 L (150-450) k/uL Current Medications Generic Name Dose Route Start Last Admin Trade Name Freq PRN Reason Stop Dose Admin Acetaminophen 650 mg 04/19/19 09:40 Tylenol Tab PO Q4H PRN MILD Pain Hydrocodone Bitart/Acetaminophen 1 each 04/19/19 09:40 04/20/19 07:41 Check 7.5-325 PO 1 each Q6HR PRN Administration Moderate Pain Ascorbic Acid 500 mg 04/20/19 09:00 04/20/19 07:42 Vitamin C PO 500 mg DAILY FRANNIE Administration Cholecalciferol 1,000 unit 04/20/19 09:00 04/20/19 07:42 Vitamin D3 (25 Mcg = 1000 Iu) PO 1,000 unit DAILY FRANNIE Administration Diclofenac Sodium 2 gm 04/19/19 22:00 04/20/19 07:44 Voltaren Gel TOPICAL 2 gm QID FRANNIE Administration Doxazosin Mesylate 4 mg 04/19/19 21:00 04/19/19 21:09 Cardura PO 4 mg HS FRANNIE Administration Hydrochlorothiazide 25 mg 04/20/19 09:00 04/20/19 07:42 Hydrodiuril PO 25 mg QAM FRANNIE Administration Lidocaine 1 patch 04/20/19 09:00 04/20/19 07:43 Lidoderm TOPICAL Not Given DAILY [facility] Lisinopril 20 mg 04/20/19 09:00 04/20/19 07:43 Zestril PO 20 mg QAM FRANNIE Administration Magnesium Oxide 400 mg 04/19/19 21:00 04/19/19 21:09 Mag-Ox PO 400 mg HS [facility] Administration Metoprolol Tartrate 50 mg 04/19/19 21:00 04/20/19 07:42 Lopressor PO 50 mg BID FRANNIE Administration Morphine Sulfate 2 mg 04/19/19 19:40 04/20/19 05:10 Morphine Sulfate (Inj) IVP 2 mg Q6H PRN Administration SEVERE Pain/Discomfort Pantoprazole Sodium 40 mg 04/19/19 12:00 04/20/19 07:43 Protonix IVP 40 mg DAILY [facility] Administration Tamsulosin HCl 0.4 mg 04/19/19 21:00 04/19/19 21:09 Flomax PO 0.4 mg HS FRANNIE Administration Intake and Output 04/19/19 04/20/19 04/20/19 22:59 06:59 14:59 Intake Total 350 Balance 350 Intake: Oral 350 Other: Voiding Method Urinal Toilet Urinal # Voids 1 1 04/19/19 18:56 04/19/19 05:51
[2019-04-20] MEDS: TAMSULOSIN 0.4 MG CAP.ER.24H PO SCH (21:23)
[2019-04-20] MEDS: DOXAZOSIN 4 MG TAB PO SCH (21:23)
[2019-04-20] MEDS: MAGNESIUM OXIDE 400 MG TAB PO SCH (21:23)
[2019-04-21] MEDS: MORPHINE SULFATE 2 MG/ML SYRINGE IVP PRN (02:08)
[2019-04-21] MEDS: HYDROcodone/APAP 7.5-325MG 1 EACH TAB PO PRN ×2 (05:24→12:37)
[2019-04-21] MEDS: LACTATED RINGERS 1,000 ML IV SCH ×2 (06:02→10:45)
[2019-04-21] MEDS: HYDROCHLOROTHIAZIDE 25 MG TAB PO SCH (08:26)
[2019-04-21] MEDS: METOPROLOL TARTRATE 50 MG TAB PO SCH (08:26)
[2019-04-21] MEDS: LISINOPRIL 20 MG TAB PO SCH (08:26)
[2019-04-21] MEDS: CHOLECALCIFEROL 1,000 UNIT TAB PO SCH (08:26)
[2019-04-21] MEDS: ASCORBIC ACID 500 MG TAB PO SCH (08:27)
[2019-04-21] MEDS: PANTOPRAZOLE 40 MG/10 ML VIAL IVP SCH (08:27)
[2019-04-21] MEDS: DICLOFENAC SODIUM GEL 100 GM TUBE TOPICAL SCH (08:28)
[2019-04-21] MEDS: LIDOCAINE 5% PATCH TOPICAL SCH (08:29)
[2019-04-21 09:27] LABS: Prothrombin Time 10.8 sec (9.0-12.0)
--- NOTE | 2019-04-21 11:38 | P.PCN ---
Date of Procedure: 04/21/19 Procedure(s) Performed: Intercostal Nerve block Levels: Left 9, 10, 11 Diagnosis: Intercostal Neuralgia Physician: Cruz Lopez MD Indications for procedure: Patient has left intercostal neuralgia. Of note he is on plavix and warfarin, but have been off of this for seven days. His INR is normal today. No sedation was used at the patient had breakfast Procedure: The patient was placed prone on the fluoroscopy table. He was cleaned sterilely with ChloraPrep. The painful areas were marked out with the marker under fluoroscopy. Next a caudal anglulation with the fluroscopy was taken. Three needles were placed in at the inferior border of the three painful areas of the rib. Next a lateral and AP view were taken to make sure the needles were not advanced too anteriorly. Next contrast was injected. A solution containing 3 cc of .5% ropivicaine and 10 mg dexamethasone was injected in divided doses. Finally the ribs were counted to see what was the areas targeted. It was noted to be the left rib 9, 10, 11. The patient noted immediate relief of his typical pain. An xray was ordered to r/o any possible pneumothorax. He was observed in PACU and there were no complications apparent. He will resume his anticoagulation per cardiology. He will be seen back in clinic in a few weeks.
--- NOTE | 2019-04-21 11:40 | P.DS ---
Providers Date of admission: 04/19/19 09:01 Expected date of discharge: 04/21/19 Attending physician: Maximo Tucker MD Consults: 04/19/19 09:42 Consult Physician Routine Consulting Provider: Josh Du Consult Reason/Comments: AFib on coumadin here with anemia/GI bleed Do you want consulting provider notified?: Yes 04/19/19 11:24 Consult to Anesthesia Routine Consulting Provider: Anesthesia,Services Consult Reason/Comments: evaluate for intercostal nerve block Primary care physician: Enedina David MD - Discharge Diagnosis(es) (1) Hematoma Current Visit: Yes Status: Acute (2) Symptomatic anemia Current Visit: Yes Status: Acute (3) Warfarin-induced coagulopathy Current Visit: Yes Status: Acute (4) Atrial fibrillation Current Visit: Yes Status: Acute (5) H/O aortic valve replacement Current Visit: Yes Status: Chronic (6) Intercostal neuralgia Current Visit: Yes Status: Acute (7) CAD (coronary artery disease) Current Visit: Yes Status: Acute Hospital Course: This is an 79-year-old male with a past medical history of coronary artery disease with stenting , aortic valve replacement with porcine valve on anticoagulation with Coumadin, atrial fibrillation presents emergency Department with chief complaint of fatigue/weakness and mild shortness of breath. The patient was admitted with symptomatic anemia after his presenting hemoglobin was 8.3, last stool Hemoccult was negative. 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 The patient was noted to have a fall with severe hematoma and ecchymosis to his right lower extremity right flank and right shoulder extending into the left side of his ribs causing his anemia. The patient was scheduled to see pain management secondary to intercostal neuralgia but secondary to his admission was not able to make his appointment, the anesthesia services were consulted and the patient was given a intercostal nerve block and subsequently discharged home in stable condition. This discharge process took approximately 35 minutes. Focused exam Lungs: Clear to auscultation, Clear to percussion, Normal respiratory effort, no accessory muscle use to palpation over the left-sided ribs at 9 10 11 Cardiovascular: Irregularly irregular with normal rate, No murmurs, gallops, or rubs no peripheral edema Skin: Multiple areas of bruising hematoma and ecchymosis on the right flank and shoulder Patient Condition at Discharge: Good Plan - Discharge Summary Discharge Rx Participant: Yes New Discharge Prescriptions: Continue traMADol HCL [Ultram] 50 mg PO TID PRN PRN Reason: See Comments Hydrochlorothiazide [Hydrodiuril] 25 mg PO QAM Terazosin [Hytrin] 5 mg PO HS Omeprazole [PriLOSEC] 20 mg PO DAILY Metoprolol Tartrate [Lopressor] 50 mg PO BID Ramipril [Altace] 5 mg PO QAM Multivitamins, Thera [Multivitamin (formulary)] 1 tab PO DAILY Cholecalciferol [Vitamin D3 (25 Mcg = 1000 Iu)] 1,000 unit PO DAILY Ascorbic Acid [Vitamin C] 500 mg PO DAILY Glucosam/Ray-Msm1/C/Kai/Bosw [Glucosamine-Chondroitin Tablet] 1 tab PO BID Acetaminophen Tab [Tylenol] 650 mg PO Q4-6H PRN PRN Reason: Pain Magnesium Oxide [Mag-Ox] 250 mg PO HS Iron 28mg 28 mg PO HS Nitroglycerin Sl Tabs [Nitrostat] 0.4 mg SUBLINGUAL Q5M PRN #25 tab PRN Reason: Chest Pain Tamsulosin HCl [Flomax] 0.4 mg PO HS Turmeric Root Extract [Turmeric] 500 mg PO DAILY Warfarin [Coumadin] 5 mg PO DIRECTED Ubidecarenone [Co Q-10] 100 mg PO DAILY HYDROcodone/APAP 7.5-325MG [[place] 7.5-325] 1 tab PO Q6HR PRN 3 Days #12 tab PRN Reason: Pain Fish Oil/Dha/Epa [Fish Oil 1,200 mg Fish Oil] 1 cap PO DAILY Clopidogrel [Plavix] 75 mg PO DAILY Discontinued Lidocaine 5% Patch [Lidoderm] 1 patch TOPICAL DAILY #30 patch Diclofenac Sodium Gel [Voltaren Gel] 2 gm TOPICAL QID Discharge Medication List Hydrochlorothiazide [Hydrodiuril] 25 mg PO QAM 02/02/15 [History] Metoprolol Tartrate [Lopressor] 50 mg PO BID 02/02/15 [History] Omeprazole [PriLOSEC] 20 mg PO DAILY 02/02/15 [History] Ramipril [Altace] 5 mg PO QAM 02/02/15 [History] Terazosin [Hytrin] 5 mg PO HS 02/02/15 [History] traMADol HCL [Ultram] 50 mg PO TID PRN 02/02/15 [History] Ascorbic Acid [Vitamin C] 500 mg PO DAILY 08/25/15 [History] Cholecalciferol [Vitamin D3 (25 Mcg = 1000 Iu)] 1,000 unit PO DAILY 08/25/15 [History] Multivitamins, Thera [Multivitamin (formulary)] 1 tab PO DAILY 08/25/15 [His tory] Acetaminophen Tab [Tylenol] 650 mg PO Q4-6H PRN 07/05/16 [History] Glucosam/Ray-Msm1/C/Kai/Bosw [Glucosamine-Chondroitin Tablet] 1 tab PO BID 07/05/16 [History] Iron 28mg 28 mg PO HS 07/05/16 [History] Magnesium Oxide [Mag-Ox] 250 mg PO HS 07/05/16 [History] Nitroglycerin Sl Tabs [Nitrostat] 0.4 mg SUBLINGUAL Q5M PRN #25 tab 08/28/18 [Rx] Tamsulosin HCl [Flomax] 0.4 mg PO HS 08/28/18 [History] HYDROcodone/APAP 7.5-325MG [[place] 7.5-325] 1 tab PO Q6HR PRN 3 Days #12 tab 03/26/19 [Rx] Turmeric Root Extract [Turmeric] 500 mg PO DAILY 03/26/19 [History] Ubidecarenone [Co Q-10] 100 mg PO DAILY 03/26/19 [History] Warfarin [Coumadin] 5 mg PO DIRECTED 03/26/19 [History] Clopidogrel [Plavix] 75 mg PO DAILY 03/28/19 [History] Fish Oil/Dha/Epa [Fish Oil 1,200 mg Fish Oil] 1 cap PO DAILY 03/28/19 [History] Follow up Appointment(s)/Referral(s): Enedina David MD [Primary Care Provider] - 04/26/19 9:00 am Patient Instructions/Handouts: Weakness (DC), Anemia (DC) Discharge/Stand Alone Forms: Anes Pain/[place] Instructions Discharge Disposition: HOME SELF-CARE
[2019-04-21 11:56] LABS: Glucose,Whole Blood 108 mg/dL (75-99)
--- NOTE | 2019-04-21 12:10 | FL ---
EXAMINATION TYPE: FL guided pain mgmt statistic DATE OF EXAM: 04/21/2019 CLINICAL HISTORY: Rib pain. TECHNIQUE: Fluoroscopy. COMPARISON: None. FINDINGS: Fluoroscopic guidance was provided during pain relief procedure performed by Dr. Marylin Bonilla A total of 17 seconds of fluoroscopic time was utilized during the procedure and 6 spot images a re acquired. Images acquired shows needle localization at multiple levels overlying multiple ribs. IMPRESSION: As Above.
--- NOTE | 2019-04-21 12:14 | XR ---
EXAMINATION TYPE: XR chest 1V portable DATE OF EXAM: 04/21/2019 COMPARISON: 04/19/2019 HISTORY: Status post intercostal nerve block on the left portably. No pneumothorax. TECHNIQUE: Single frontal view of the chest is obtained. FINDINGS: Old healed left mid rib posterior fracture deformities are seen. There is an enlarged card iac mediastinal silhouette with multilead left-sided cardiac device. Minimal left basilar subsegmenta l atelectasis. No new pneumothorax is seen. Degenerative changes of the right shoulder and postoperat robyn changes of the left shoulder. Left perihilar atelectasis is also new. IMPRESSION: New left basilar left perihilar atelectasis. No postprocedural pneumothorax.
[2019-04-21 12:20] VITALS: BP 120/56; PULSE 63; RESP 18; TEMP 97.4
[2019-04-22] MEDS ORDERED: PANTOPRAZOLE 40 MG TABLET PO SCH (07:30)
== END 2019-04-21 14:35 | disposition home or self-care (01) | DRG 812 ==
LOC: EC 05:24 → 3NMEDONC 09:01
PROVIDERS: ADMIT Family Medicine; ATTEND Family Medicine
PROC: 3E0T3BZ Introduction of Anesthetic Agent into Peripheral Nerves and Plexi, Percutaneous Approach (ICD-10-PCS; principal; 2019-04-21 11:00)
DX: D64.9 Anemia, unspecified (principal); J98.11 Atelectasis; I10 Essential (primary) hypertension; I25.10 Atherosclerotic heart disease of native coronary artery without angina pectoris; I48.0 Paroxysmal atrial fibrillation; K21.9 Gastro-esophageal reflux disease without esophagitis; M19.071 Primary osteoarthritis, right ankle and foot; M47.9 Spondylosis, unspecified; G58.8 Other specified mononeuropathies; R79.1 Abnormal coagulation profile; S30.1XXA Contusion of abdominal wall, initial encounter; S80.11XA Contusion of right lower leg, initial encounter; S40.011A Contusion of right shoulder, initial encounter; W19.XXXA Unspecified fall, initial encounter; T45.515A Adverse effect of anticoagulants, initial encounter; Z79.01 Long term (current) use of anticoagulants; Z79.02 Long term (current) use of antithrombotics/antiplatelets; Z79.899 Other long term (current) drug therapy; Z82.49 Family history of ischemic heart disease and other diseases of the circulatory system; Z82.5 Family history of asthma and other chronic lower respiratory diseases; Z85.46 Personal history of malignant neoplasm of prostate; Z85.828 Personal history of other malignant neoplasm of skin; Z95.0 Presence of cardiac pacemaker; Z95.3 Presence of xenogenic heart valve; Z95.5 Presence of coronary angioplasty implant and graft; Z98.42 Cataract extraction status, left eye; Z98.41 Cataract extraction status, right eye; Z96.1 Presence of intraocular lens; Z96.612 Presence of left artificial shoulder joint
CPT/HCPCS: 36415; 64420; 71045; 71046; 80053; 82272; 82728; 83540; 83550; 84484; 85025; 85610; 85730; 93005; 94760; 99285

== ENCOUNTER 2019-04-24 21:10 | Emergency (ER) | payer MEDICARE ==
--- NOTE | 2019-04-24 21:37 | ED ---
SOB HPI - General Chief Complaint: Shortness of Breath Stated Complaint: SOB/Fatigue Time Seen by Provider: 04/24/19 21:37 Source: patient, family Mode of arrival: wheelchair Limitations: no limitations - History of Present Illness Initial Comments: Owen is a pleasant 79-year-old gentleman with extensive past medical history who presents to the emergency department today for reevaluation after hospitalization last week. Patient reports that last week during hospitalization he was noted to be anemic however wasn't told of any specific cause. Patient reports that since discharge had a couple days a feeling well however he's also been feeling very tired. Patient reports that he got up this morning and ran errands and since about 10 AM is been feeling very tired. Patient reports he feels as though he could just fall asleep any time. He stat es that he sleeps well throughout the night and doesn't feel that he is sleep deprived. Patient denies any chest pain, palpitations or shortness of breath, he denies any nausea, vomiting, diarrhea or change in appetite. - Related Data Home Medications Medication Instructions Recorded Confirmed Hydrochlorothiazide [Hydrodiuril] 25 mg PO QAM 02/02/15 04/19/19 Metoprolol Tartrate [Lopressor] 50 mg PO BID 02/02/15 04/19/19 Omeprazole [PriLOSEC] 20 mg PO DAILY 02/02/15 04/19/19 Ramipril [Altace] 5 mg PO QAM 02/02/15 04/19/19 Terazosin [Hytrin] 5 mg PO HS 02/02/15 04/19/19 traMADol HCL [Ultram] 50 mg PO TID PRN 02/02/15 04/19/19 Ascorbic Acid [Vitamin C] 500 mg PO DAILY 08/25/15 04/19/19 Cholecalciferol [Vitamin D3 (25 1,000 unit PO DAILY 08/25/15 04/19/19 Mcg = 1000 Iu)] Multivitamins, Thera [Multivitamin 1 tab PO DAILY 08/25/15 04/19/19 (formulary)] Acetaminophen Tab [Tylenol] 650 mg PO Q4-6H PRN 07/05/16 04/19/19 Glucosam/Ray-Msm1/C/Kai/Bosw 1 tab PO BID 07/05/16 04/19/19 [Glucosamine-Chondroitin Tablet] Iron 28mg 28 mg PO HS 07/05/16 04/19/19 Magnesium Oxide [Mag-Ox] 250 mg PO HS 07/05/16 04/19/19 Tamsulosin HCl [Flomax] 0.4 mg PO HS 08/28/18 04/19/19 Turmeric Root Extract [Turmeric] 500 mg PO DAILY 03/26/19 04/19/19 Ubidecarenone [Co Q-10] 100 mg PO DAILY 03/26/19 04/19/19 Warfarin [Coumadin] 5 mg PO DIRECTED 03/26/19 04/19/19 Clopidogrel [Plavix] 75 mg PO DAILY 03/28/19 04/19/19 Fish Oil/Dha/Epa [Fish Oil 1,200 1 cap PO DAILY 03/28/19 04/19/19 mg Fish Oil] Previous Rx's Medication Instructions Recorded Nitroglycerin Sl Tabs [Nitrostat] 0.4 mg SUBLINGUAL Q5M PRN #25 tab 08/28/18 HYDROcodone/APAP 7.5-325MG [[place] 1 tab PO Q6HR PRN 3 Days #12 tab 03/26/19 7.5-325] Allergies Allergy/AdvReac Type Severity Reaction Status Date / Time No Known Allergies Allergy Verified 04/24/19 21:17 Review of Systems ROS Statement: Those systems with pertinent positive or pertinent negative responses have been documented in the HPI. ROS Other: All systems not noted in ROS Statement are negative. Past Medical History Past Medical History: Atrial Fibrillation, Cancer, GERD/Reflux, Hypertension, Osteoarthritis (OA), Prostate Disorder, Vascular Disorder Additional Past Medical History / Comment(s): HX OF PROSTATE AND SKIN CANCER, [employer] PACEMAKER, [facility] HEART VALVE (COW), TORN LEFT ROTATOR CUFF, DEGENERATIVE ARTHRITIS IN BACK WITH PAIN, LOW IRON AND LEG CRAMPS, R foot OA-pt wears a brace. dislocated shoulder interecostal neuroelgia History of Any Multi-Drug Resistant Organisms: None Reported Past Surgical History: Cardiac Valve Replacement, Cholecystectomy, Heart Catheterization, Hernia Repair, Joint Replacement, Orthopedic Surgery, Pacemaker Additional Past Surgical History / Comment(s): 07/09/16 Reverse L shoulder rotator cuff repair arthroplasty. Other surgical HX: AORTIC VALVE REPLACEMENT ([facility]) ,BILATERAL GREAT TOES JT REPAIR,LEFT SHOULDER, PAIN CLINIC PROCEDURE, CATARACTS WITH LENS IMPLANTS , EMILEE INGUINAL HERNIAS, HIATAL HERNIA., [employer] PACEMAKER. STENT RCA 08/27/18 Past Anesthesia/Blood Transfusion Reactions: Motion Sickness, Postoperative Nausea & Vomiting (PONV) Type of Cardiac Device: Permanent Pacemaker Device Placement Date:: 2010 LT CHEST Past Psychological History: No Psychological Hx Reported Smoking Status: Never smoker Past Alcohol Use History: Occasional Past Drug Use History: None Reported - Past Family History Brother(s) Family Medical History: Cancer Additional Family Medical History / Comment(s): BROTHERS X2 PROSTATE,HIATAL HERNIA Mother Family Medical History: Congestive Heart Failure (CHF) Additional Family Medical History / Comment(s): EMPHYSEMA Father Family Medical History: Congestive Heart Failure (CHF) Additional Family Medical History / Comment(s): EMPHYSEMA General Exam - General Exam Comments Initial Comments: Physical Exam GENERAL: Chronically ill-appearing, in no acute distress HENT: Normocephalic, Atraumatic. EYES: PERRL, EOMI PULMONARY: Unlabored respirations. No audible rales rhonchi or wheezing was noted. CARDIOVASCULAR: Regular rate and rhythm Pacemaker present left chest Holosystolic murmur ABDOMEN: Soft and nontender with normal bowel sounds. SKIN: Skin is clear with no lesions or rashes and otherwise unremarkable. : Deferred NEUROLOGIC: Patient is alert and oriented x3. Moving all extremities spontaneously MUSCULOSKELETAL: Normal extremities with adequate strength and full range of motion. No lower extremity swelling or edema. No calf tenderness. PSYCHIATRIC: Normal psychiatric evaluation Limitations: no limitations Course Vital Signs 04/24/19 04/24/19 04/24/19 21:14 21:41 21:50 Temperature 98.3 F Pulse Rate 64 60 Respiratory 20 31 H 15 Rate Blood Pressure 144/70 138/64 O2 Sat by Pulse 96 98 Oximetry 04/24/19 04/24/19 04/24/19 22:10 22:20 22:40 Temperature Pulse Rate 65 70 Respiratory 20 13 Rate Blood Pressure 122/67 154/61 134/61 O2 Sat by Pulse 97 95 Oximetry 04/24/19 04/24/19 04/24/19 22:50 23:03 23:20 Temperature Pulse Rate 60 60 60 Respiratory 15 25 H 24 Rate Blood Pressure 120/60 130/62 134/60 O2 Sat by Pulse 96 96 97 Oximetry 04/24/19 04/24/19 04/25/19 23:40 23:50 00:10 Temperature Pulse Rate 59 L 60 64 Respiratory 20 22 24 Rate Blood Pressure 133/57 128/63 171/68 O2 Sat by Pulse 97 97 96 Oximetry 04/25/19 04/25/19 04/25/19 00:20 00:40 00:50 Temperature Pulse Rate 59 L 60 60 Respiratory 21 14 22 Rate Blood Pressure 110/89 137/60 135/65 O2 Sat by Pulse 97 94 L 96 Oximetry 04/25/19 01:10 Temperature 98.4 F Pulse Rate 70 Respiratory 20 Rate Blood Pressure 136/64 O2 Sat by Pulse 96 Oximetry Medical Decision Making - Medical Decision Making Patient with known anemia, cardiac disease, presenting with generalized malaise and easy fatigue - concerned about anemia Labs obtained EKG was obtained at 2124, rate is 66 rhythm is atrial paced, there is leftward axis, normal intervals, MS 114, Curasol 4, QTC is 46 there are no acute ST elevations or depressions there is no evidence of acute ischemia or infarction. When this EKG was compared to EKG Obtained on April 19 there is no significant change in morphology. Anemia improving, mild CHF likely with BNP elevated, however no physical exam findings or CXR evidence of overt CHF Results discussed with patient and who are comfortable with plan for discharge Patient - Lab Data Result diagrams: 04/24/19 21:34 04/24/19 21:34 Lab Results 04/24/19 04/24/19 04/24/19 Range/Units 21:34 21:34 21:34 WBC 8.1 (3.8-10.6) k/uL RBC 2.88 L (4.30-5.90) m/uL Hgb 9.2 L (13.0-17.5) gm/dL Hct 28.2 L (39.0-53.0) % MCV 97.8 (80.0-100.0) fL MCH 31.9 (25.0-35.0) pg MCHC 32.6 (31.0-37.0) g/dL RDW 15.2 (11.5-15.5) % Plt Count 236 (150-450) k/uL Neutrophils % 75 % Lymphocytes % 9 % Monocytes % 8 % Eosinophils % 6 % Basophils % 1 % Neutrophils # 6.1 (1.3-7.7) k/uL Lymphocytes # 0.7 L (1.0-4.8) k/uL Monocytes # 0.6 (0-1.0) k/uL Eosinophils # 0.5 (0-0.7) k/uL Basophils # 0.1 (0-0.2) k/uL Hypochromasia Slight Sodium 137 (137-145) mmol/L Potassium 4.9 (3.5-5.1) mmol/L Chloride 106 (98-107) mmol/L Carbon Dioxide 26 (22-30) mmol/L Anion Gap 5 mmol/L BUN 60 H (9-20) mg/dL Creatinine 1.23 (0.66-1.25) mg/dL Est GFR (CKD-EPI)AfAm 64 (>60 ml/min/1.73 sqM) Est GFR (CKD-EPI)NonAf 55 (>60 ml/min/1.73 sqM) Glucose 82 (74-99) mg/dL Calcium 8.6 (8.4-10.2) mg/dL Magnesium 2.5 H (1.6-2.3) mg/dL Total Bilirubin 0.6 (0.2-1.3) mg/dL AST 23 (17-59) U/L ALT 14 L (21-72) U/L Alkaline Phosphatase 74 (38-126) U/L Troponin I (0.000-0.034) ng/mL NT-Pro-B Natriuret Pep pg/mL Total Protein 5.4 L (6.3-8.2) g/dL Albumin 3.1 L (3.5-5.0) g/dL Urine Color Urine Appearance (Clear) Urine pH (5.0-8.0) Ur Specific [place] (1.001-1.035) Urine Protein (Negative) Urine Glucose (UA) (Negative) Urine Ketones (Negative) Urine Blood (Negative) Urine Nitrite (Negative) Urine Bilirubin (Negative) Urine Urobilinogen (<2.0) mg/dL Ur Leukocyte Esterase (Negative) Urine RBC (0-5) /hpf Urine WBC (0-5) /hpf Blood Type O Positive Blood Type Recheck No Antibody Screen NEGATIVE Spec Expiration Date 04/27/2019 - 2334 08/17/19 08/17/19 08/17/19 Range/Units 21:34 21:34 21:34 WBC (3.8-10.6) k/uL RBC (4.30-5.90) m/uL Hgb (13.0-17.5) gm/dL Hct (39.0-53.0) % MCV (80.0-100.0) fL MCH (25.0-35.0) pg MCHC (31.0-37.0) g/dL RDW (11.5-15.5) % Plt Count (150-450) k/uL Neutrophils % % Lymphocytes % % Monocytes % % Eosinophils % % Basophils % % Neutrophils # (1.3-7.7) k/uL Lymphocytes # (1.0-4.8) k/uL Monocytes # (0-1.0) k/uL Eosinophils # (0-0.7) k/uL Basophils # (0-0.2) k/uL Hypochromasia Sodium (137-145) mmol/L Potassium (3.5-5.1) mmol/L Chloride (98-107) mmol/L Carbon Dioxide (22-30) mmol/L Anion Gap mmol/L BUN (9-20) mg/dL Creatinine (0.66-1.25) mg/dL Est GFR (CKD-EPI)AfAm (>60 ml/min/1.73 sqM) Est GFR (CKD-EPI)NonAf (>60 ml/min/1.73 sqM) Glucose (74-99) mg/dL Calcium (8.4-10.2) mg/dL Magnesium (1.6-2.3) mg/dL Total Bilirubin (0.2-1.3) mg/dL AST (17-59) U/L ALT (21-72) U/L Alkaline Phosphatase (38-126) U/L Troponin I 0.017 (0.000-0.034) ng/mL NT-Pro-B Natriuret Pep 1880 pg/mL Total Protein (6.3-8.2) g/dL Albumin (3.5-5.0) g/dL Urine Color Yellow Urine Appearance Clear (Clear) Urine pH 7.5 (5.0-8.0) Ur Specific [place] 1.021 (1.001-1.035) Urine Protein Negative (Negative) Urine Glucose (UA) Negative (Negative) Urine Ketones Negative (Negative) Urine Blood Negative (Negative) Urine Nitrite Negative (Negative) Urine Bilirubin Negative (Negative) Urine Urobilinogen <2.0 (<2.0) mg/dL Ur Leukocyte Esterase Trace H (Negative) Urine RBC <1 (0-5) /hpf Urine WBC 1 (0-5) /hpf Blood Type Blood Type Recheck Antibody Screen Spec Expiration Date Disposition Clinical Impression: Chronic anemia Disposition: HOME SELF-CARE Condition: Stable Instructions (If sedation given, give patient instructions): Iron Deficiency Anemia (ED) Is patient prescribed a controlled substance at d/c from ED?: No Referrals: Enedina David MD [Primary Care Provider] - 1-2 days
[2019-04-24 22:20] LABS: Appearance,Urine Clear (Clear); Bilirubin,Urine Negative (Negative); Blood,Urine Negative (Negative); Color,Urine Yellow; Glucose,Urine (UA) Negative (Negative); Ketones,Urine Negative (Negative); Leukocyte Esterase,Urine Trace (Negative); Nitrite,Urine Negative (Negative); PH, Urine 7.5 (5.0-8.0); Protein,Urine Negative (Negative); RBC,Urine <1 /hpf (0-5); Specific Gravity,Urine 1.021 (1.001-1.035); Urobilinogen,Urine <2.0 mg/dL (<2.0); WBC,Urine 1 /hpf (0-5)
[2019-04-24 22:23] LABS: Basophils # (A) 0.1 k/uL (0-0.2); Basophils % (A) 1 %; Eosinophils # (A) 0.5 k/uL (0-0.7); Eosinophils % (A) 6 %; HCT 28.2 % (39.0-53.0); HGB 9.2 gm/dL (13.0-17.5); Hypochromasia Slight; Lymphocytes # (A) 0.7 k/uL (1.0-4.8); Lymphocytes % (A) 9 %; MCH 31.9 pg (25.0-35.0); MCHC 32.6 g/dL (31.0-37.0); MCV 97.8 fL (80.0-100.0); Mean Platelet Volume 8.7; Monocytes # (A) 0.6 k/uL (0-1.0); Monocytes % (A) 8 %; Neutrophils # (A) 6.1 k/uL (1.3-7.7); Neutrophils % (A) 75 %; Platelet Count 236 k/uL (150-450); RBC 2.88 m/uL (4.30-5.90); RDW 15.2 % (11.5-15.5); WBC 8.1 k/uL (3.8-10.6)
[2019-04-24 22:25] LABS: Albumin 3.1 g/dL (3.5-5.0); Calcium 8.6 mg/dL (8.4-10.2); Magnesium 2.5 mg/dL (1.6-2.3); Potassium 4.9 mmol/L (3.5-5.1); Total Bilirubin 0.6 mg/dL (0.2-1.3); Total Protein 5.4 g/dL (6.3-8.2)
--- NOTE | 2019-04-24 22:39 | XR ---
EXAM: XR Chest, 2 Views CLINICAL HISTORY: ITS.REASON XR Reason: Pain TECHNIQUE: Frontal and lateral views of the chest. COMPARISON: 04/19/19 FINDINGS: Lungs: Unremarkable. No consolidation. Pleural space: Unremarkable. No pneumothorax. Heart: Unremarkable. No cardiomegaly. Mediastinum: Unremarkable. Bones/joints: Total left shoulder replacement prosthesis. High riding right humeral head. Osteopenia. Mild to moderate anterior wedge-shaped compression defect in multiple thoracic levels. Tubes, lines and devices: Left pacer, sternal wires, prosthetic heart valve are again noted. IMPRESSION: No acute findings.
[2019-04-25 01:22] VITALS: BP 136/64; PULSE 70; RESP 20; TEMP 98.4
== END 2019-04-25 01:22 | disposition home or self-care (01) ==
LOC: EC 21:10
DX: D64.9 Anemia, unspecified (principal); I48.91 Unspecified atrial fibrillation; M19.071 Primary osteoarthritis, right ankle and foot; I10 Essential (primary) hypertension; K21.9 Gastro-esophageal reflux disease without esophagitis; Z79.02 Long term (current) use of antithrombotics/antiplatelets; Z79.01 Long term (current) use of anticoagulants; Z79.899 Other long term (current) drug therapy; Z95.0 Presence of cardiac pacemaker; Z95.2 Presence of prosthetic heart valve; Z85.828 Personal history of other malignant neoplasm of skin
CPT/HCPCS: 36415; 71046; 80053; 81001; 83735; 83880; 84484; 85025; 86850; 86900; 86901; 93005; 99285

== ENCOUNTER → 2019-05-04 | Outpatient (CLI) | payer MEDICARE ==
[2019-05-04 13:36] VITALS: BP 111/63; PULSE 75; RESP 18
--- NOTE | 2019-05-04 15:58 | P.PAINPG ---
Subjective Progress Note Date: 05/04/19 Mr. Fairchild is a 79-year-old male who is here for follow up after his intercostal nerve blocks on the left 9, 10, 11 ribs. He said he had tremendous pain relief after the injections, and this has improved the quality of his life. His pain score is only 2 out of 10 at this point. Previously he did have sharp pain, he continues to have dull pain but this is manageable and not irritating. He has not had a lidocaine patch in the past few days to the painful areas but has tried it in the past. Otherwise she has no new complaints. Objective - Vital Signs Vital signs: Vital Signs Temp Pulse 75 05/04/19 13:27 Resp 18 05/04/19 13:27 BP 111/63 05/04/19 13:27 Pulse Ox 96 05/04/19 13:27 Intake & Output 05/03/19 05/04/19 05/04/19 18:59 06:59 18:59 Weight 72.575 kg - Exam Vital Signs: Reviewed in EMR GENERAL: Well appearing, in no acute distress, PSYCH: Mood and affect is appropriate. Awake, alert, and oriented SKIN: Skin color, texture, turgor normal, no rashes or lesions HEENT: Normocephalic, atraumatic. EOM intact CV: No pedal edema RESP: Respirations are unlabored, no audible wheezing GI: Abdomen non-distended MUSCULOSKELETAL: He did have allodynia in the left anterior T9, 10 and 11 distributions. Assessment and Plan Assessment: Assessment: 1. 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 2. Chronic anticoagulation 3. Anemia 4. Multiple medical comorbidities Plan: 1. Explanation: Explained to him about the risks and benefits of proceeding with another nerve block followed by potential radiofrequency ablation. At this point his pain is very manageable thus we will defer on procedures. 2. Opioid agreement: None 3. Counseling: The patient was counseled on stay active. 4. Procedures: None at this time, however if his pain returns we can consider repeat T9, 10, 11 on the left side intercostal nerve blocks 5. Consultations: None 6. Investigations: None 7. Medications: Encourage him to use lidocaine patch to the painful area 8. Disposition: As needed, he will make appointment if he is interested in further procedures however at this point his pain is very manageable. , PQRS Measure Charge Sheet Measure #226: Tobacco Use: Screen & Cessation Intervention: Pt not a tobacco user Measure #111: Pneumonia Vaccination: Pneumococcal vaccine administered or previously received Measure #47: Advance Care Plan: Advance care planning discussed & documented, pt chose/unable to give Measure #412: Opioid Treatment Agreement: No documentation of signed opioid treatment agreement Measure #408: Opioid Therapy Follow-up Evaluation: Patient had NO f/u eval minimum every 3 months during opioid therapy Measure #131: Pain Assessment & Follow-up: Pain positive & plan documented, Follow-up scheduled, Follow-up PRN Measure #431: Unhealthy Alcohol Use Preventative Care & Scrn: Patient not identified as an unhealthy alcohol user PQRS Narrative: Smoking Status Never smoker Blood Pressure 111/63 Pain Intensity [Left Anterior 2 Chest] Scale Used Numeric (1 - 10) Hx Alcohol Use (MH) No Home Medications: Ambulatory Orders Hydrochlorothiazide [Hydrodiuril] 25 mg PO QAM 02/02/15 Metoprolol Tartrate [Lopressor] 50 mg PO BID 02/02/15 Omeprazole [PriLOSEC] 20 mg PO DAILY 02/02/15 Ramipril [Altace] 5 mg PO QAM 02/02/15 Terazosin [Hytrin] 5 mg PO HS 02/02/15 traMADol HCL [Ultram] 50 mg PO TID PRN 02/02/15 Ascorbic Acid [Vitamin C] 500 mg PO DAILY 08/25/15 Cholecalciferol [Vitamin D3 (25 Mcg = 1000 Iu)] 1,000 unit PO DAILY 08/25/15 Multivitamins, Thera [Multivitamin (formulary)] 1 tab PO DAILY 08/25/15 Acetaminophen Tab [Tylenol] 650 mg PO Q4-6H PRN 07/05/16 Glucosam/Ray-Msm1/C/Kai/Bosw [Glucosamine-Chondroitin Tablet] 1 tab PO BID 07/05/16 Iron 28mg 28 mg PO HS 07/05/16 Magnesium Oxide [Mag-Ox] 250 mg PO HS 07/05/16 Nitroglycerin Sl Tabs [Nitrostat] 0.4 mg SUBLINGUAL Q5M PRN #25 tab 08/28/18 Tamsulosin HCl [Flomax] 0.4 mg PO HS 08/28/18 Turmeric Root Extract [Turmeric] 500 mg PO DAILY 03/26/19 Ubidecarenone [Co Q-10] 100 mg PO DAILY 03/26/19 Warfarin [Coumadin] 5 mg PO DIRECTED 03/26/19 Fish Oil/Dha/Epa [Fish Oil 1,200 mg Fish Oil] 1 cap PO DAILY 03/28/19 Controlled Substance Measures - Controlled Substance Measures Is patient prescribed a controlled substance at discharge?: No
== END ==
LOC: PNWHC3 13:19
PROVIDERS: ATTEND Student in an Organized Health Care Education/Training Program
DX: G58.8 Other specified mononeuropathies (principal); D64.9 Anemia, unspecified; Z79.01 Long term (current) use of anticoagulants; Z79.899 Other long term (current) drug therapy; Z79.891 Long term (current) use of opiate analgesic
CPT/HCPCS: 99211

== ENCOUNTER → 2019-06-09 | Day surgery (SDC) | payer MEDICARE ==
[2019-06-07 16:36] VITALS: BMI 28.3
[~2019-06-09] MED LIST changes: -ALPRAZolam 0.25 MG TAB PO PRN; -ASPIRIN 325 MG TAB PO ONE; +IV FLUID CONTINUATION 1,000 ML IV ONE; +LACTATED RINGERS 1,000 ML IV SCH; -NITROGLYCERIN SL TABS 0.4 MG TAB SUBLINGUAL PRN; -SODIUM CHLORIDE 0.9% 1,000 ML in EMPTY BAG 1 BAG IV ONE
[2019-06-09 10:52] VITALS: RESP 16; TEMP 97.4
[2019-06-09 11:03] LABS: Basophils # (A) 0.1 k/uL (0-0.2); Basophils % (A) 1 %; Eosinophils # (A) 0.2 k/uL (0-0.7); Eosinophils % (A) 2 %; HCT 40.4 % (39.0-53.0); Lymphocytes # (A) 0.9 k/uL (1.0-4.8); Lymphocytes % (A) 11 %; MCH 31.9 pg (25.0-35.0); MCHC 31.9 g/dL (31.0-37.0); MCV 99.9 fL (80.0-100.0); Mean Platelet Volume 8.9; Monocytes # (A) 0.5 k/uL (0-1.0); Monocytes % (A) 6 %; Neutrophils # (A) 6.4 k/uL (1.3-7.7); Neutrophils % (A) 79 %; Platelet Count 119 k/uL (150-450); RBC 4.04 m/uL (4.30-5.90); RDW 13.7 % (11.5-15.5); WBC 8.1 k/uL (3.8-10.6)
[2019-06-09 11:11] LABS: HGB 12.9 gm/dL (13.0-17.5)
[2019-06-09 11:24] LABS: ALT 16 U/L (21-72); AST 21 U/L (17-59); Cholesterol 188 mg/dL (<200); HDL Cholesterol 54 mg/dL (40-60); LDL Cholesterol,Calculated 117 mg/dL (0-99); Triglycerides 87 mg/dL (<150)
--- NOTE | 2019-06-09 11:28 | P.PCN ---
Date of Procedure: 06/09/19 Procedure(s) Performed: Intercostal Nerve block under fluoroscopy guidance (fluoroscopy images available at radiology Department ) Levels: Left side T 9, T10, T11 pre op Diagnosis: Intercostal Neuralgia Postoperative diagnoses= intercostal neuralgia Complications=none Anesthesia= IV sedation with Versed 1 mg and fentanyl 50 g Indications for procedure: Patient has left intercostal neuralgia. Of note he is on plavix and warfarin, but have been off of this for seven days. Procedure: The patient was placed prone on the fluoroscopy table. He was cleaned sterilely with ChloraPrep. The painful areas were marked out with the marker under fluoroscopy. Next a caudal anglulation with the fluroscopy was taken. 25 g spinal needles Three needles were placed in at the inferior border of the three painful areas of the rib. Next a lateral and AP view were taken to make sure the needles were not advanced too anteriorly. Next contrast was injected. A solution containing 3 cc of .5% ropivicaine and 40 mg of Depo- Medrol 1 ml of the soulotions was injected in divided doses. An xray was ordered to r/o any possible pneumothorax. He was observed in PACU and there were no complications apparent. He will resume his anticoagulation per cardiology. He will be seen back in clinic in a few weeks.
[2019-06-09 11:32] VITALS: BP 132/69; PULSE 62
--- NOTE | 2019-06-09 11:40 | FL ---
EXAMINATION TYPE: FL guided pain mgmt statistic DATE OF EXAM: 06/09/2019 HISTORY: Pain dr. rodriguez intercostal pain management. 32 secs fl
--- NOTE | 2019-06-09 12:09 | XR ---
EXAMINATION TYPE: XR chest 1V portable DATE OF EXAM: 06/09/2019 HISTORY: Shortness of breath. COMPARISON: April 24, 2019 TECHNIQUE: Single view of the chest is submitted. FINDINGS: Demonstrated are scattered senescent parenchymal change. There is no evidence for focal infiltrate. The heart is stable. Hilar and mediastinal structures are within normal limits. Degenerative changes are seen of the dorsal spine. IMPRESSION: 1. Chronic changes without evidence for acute pulmonary disease.
== END ==
LOC: ORPAIN 09:24
PROVIDERS: ATTEND Specialist
DX: R07.82 Intercostal pain (principal); I48.91 Unspecified atrial fibrillation; Z79.01 Long term (current) use of anticoagulants; Z79.02 Long term (current) use of antithrombotics/antiplatelets
CPT/HCPCS: 80061; 84450; 84460; 85025; 71045; 64421; J2250; J1030; J3010; Q9966; 99152

== ENCOUNTER 2020-03-02 09:03 | Day surgery (SDC) | payer MEDICARE ==
[2020-02-29 14:34] VITALS: BMI 27.8
[~2020-03-02 09:03] MED LIST changes: -IV FLUID CONTINUATION 1,000 ML IV ONE
[2020-03-02 09:47] LABS: Glucose,Whole Blood 90 mg/dL (75-99)
[2020-03-02 09:48] VITALS: TEMP 97
[2020-03-02] MEDS ORDERED: PROPOFOL 10 MG/ML 20 ML VIAL IV ONE (10:04)
--- NOTE | 2020-03-02 10:08 | P.GSHP ---
History of Present Illness H&P Date: 03/02/20 Chief Complaint: GI bleed Is an 79-year-old male presents today for colonoscopy. Patient history of GI bleed. Past Medical History Past Medical History: Atrial Fibrillation, Cancer, GERD/Reflux, Hypertension, Osteoarthritis (OA), Prostate Disorder, Vascular Disorder Additional Past Medical History / Comment(s): heart murmur-possible need to replace st venkata heart valve,HX OF PROSTATE-radiation tx 2013 AND SKIN CANCER, [employer] PACEMAKER, ST VENKATA HEART VALVE (COW), TORN LEFT ROTATOR CUFF, DEGENERATIVE ARTHRITIS IN BACK WITH PAIN, LOW IRON AND LEG CRAMPS, R foot OA-pt wears a brace. hx dislocated shoulder interecostal neuroelgia-resolved History of Any Multi-Drug Resistant Organisms: None Reported Past Surgical History: Cardiac Valve Replacement, Cholecystectomy, Heart Catheterization, Heart Catheterization With Stent, Hernia Repair, Joint Replacement, Orthopedic Surgery, Pacemaker Additional Past Surgical History / Comment(s): 07/09/16 Reverse L shoulder rotator cuff repair arthroplasty. Other surgical HX: AORTIC VALVE REPLACEMENT (ST VENKATA BOVINE) ,BILATERAL GREAT TOES JT REPAIR,LEFT SHOULDER , PAIN CLINIC PROCEDURE, CATARACTS WITH LENS IMPLANTS , EMILEE INGUINAL HERNIAS, HIATAL HERNIA., [employer] PACEMAKER. STENT RCA 08/27/18 Past Anesthesia/Blood Transfusion Reactions: Motion Sickness, Postoperative Nausea & Vomiting (PONV) Date of Last Stent Placement:: 08-27-18 Type of Cardiac Device: Permanent Pacemaker Device Placement Date:: 2010 LT CHEST Smoking Status: Former smoker - Past Family History Brother(s) Family Medical History: Cancer Additional Family Medical History / Comment(s): BROTHERS X2 PROSTATE,HIATAL HERNIA Mother Family Medical History: Congestive Heart Failure (CHF) Additional Family Medical History / Comment(s): EMPHYSEMA Father Family Medical History: Congestive Heart Failure (CHF) Additional Family Medical History / Comment(s): EMPHYSEMA Medications and Allergies Home Medications Medication Instructions Recorded Confirmed Type Hydrochlorothiazide [Hydrodiuril] 25 mg PO QAM 02/02/15 02/29/20 History Metoprolol Tartrate [Lopressor] 50 mg PO BID 02/02/15 02/29/20 History Omeprazole [PriLOSEC] 20 mg PO DAILY 02/02/15 02/29/20 History Ramipril [Altace] 5 mg PO QAM 02/02/15 02/29/20 History Terazosin [Hytrin] 5 mg PO HS 02/02/15 02/29/20 History traMADol HCL [Ultram] 50 mg PO TID PRN 02/02/15 02/29/20 History Ascorbic Acid [Vitamin C] 500 mg PO DAILY 08/25/15 02/29/20 History Cholecalciferol [Vitamin D3 (25 1,000 unit PO DAILY 08/25/15 02/29/20 History Mcg = 1000 Iu)] Multivitamins, Thera [Multivitamin 1 tab PO DAILY 08/25/15 02/29/20 History (formulary)] Acetaminophen Tab [Tylenol] 1,000 mg PO TID PRN 07/05/16 02/29/20 History Glucosam/Ray-Msm1/C/Kai/Bosw 1 tab PO BID 07/05/16 02/29/20 History [Glucosamine-Chondroitin Tablet] Iron 28mg 28 mg PO HS 07/05/16 02/29/20 History Magnesium Oxide [Mag-Ox] 250 mg PO HS 07/05/16 02/29/20 History Tamsulosin HCl [Flomax] 0.4 mg PO HS 08/28/18 02/29/20 History Turmeric Root Extract [Turmeric] 500 mg PO DAILY 03/26/19 02/29/20 History Ubidecarenone [Co Q-10] 100 mg PO DAILY 03/26/19 03/02/20 History Warfarin [Coumadin] 5 mg PO TUSA 03/26/19 02/29/20 History Aspirin [Adult Low Dose Aspirin EC] 81 mg PO DAILY 06/09/19 02/29/20 History Diclofenac Sodium [Voltaren] 75 mg PO BID 02/29/20 02/29/20 History Evolocumab [Repatha Syringe] 140 mg SQ Q14D 02/29/20 03/02/20 History Warfarin [Coumadin] 2.5 mg PO SUMOWETHFR 02/29/20 02/29/20 History Allergies Allergy/AdvReac Type Severity Reaction Status Date / Time No Known Allergies Allergy Verified 03/02/20 09:31 Surgical - Exam Vital Signs Temp Pulse Resp BP Pulse Ox 97.0 F L 71 17 172/79 97 03/02/20 09:46 03/02/20 09:46 03/02/20 09:46 03/02/20 09:46 03/02/20 09:46 - General well developed, well nourished, no distress - Eyes PERRL - ENT normal pinna - Neck no masses - Respiratory normal expansion - Cardiovascular Rhythm: regular - Abdomen Abdomen: soft, non tender Assessment and Plan Assessment: GI bleed. We'll perform colonoscopy.
[2020-03-02] MEDS: LACTATED RINGERS 1,000 ML IV ONE ×2 (10:14→11:00)
--- NOTE | 2020-03-02 10:16 | P.OP ---
Date of Procedure: 03/02/20 Preoperative Diagnosis: GI bleed Postoperative Diagnosis: Hemorrhoids Diverticulosis Procedure(s) Performed: Colonoscopy Anesthesia: MAC Surgeon: Freddy Mullins Pathology: none sent Condition: stable Disposition: PACU Description of Procedure: The patient's placed on the endoscopy table in the lateral position. He received IV sedation. Digital rectal exam was performed which revealed extensive external and internal hemorrhoids. Flexible colonoscope was then placed patient anus and passed throughout the entire colon. The ileocecal valve was visualized. The cecum, ascending and transverse colon appeared normal. In the descending and sigmoid colon there is extensive diverticular changes. Scope was then brought back the rectum this appeared normal. Scope withdrawn for patient. There is no evidence of any GI bleed on colonoscopy. Resume that the patient's bleeding was from hemorrhoids
[2020-03-02 10:23] VITALS: RESP 16
[2020-03-02 10:41] VITALS: BP 131/68; PULSE 71
== END 2020-03-02 10:55 | disposition home or self-care (01) ==
LOC: ORWHC2ENDO 09:03
PROVIDERS: ATTEND Surgery
DX: K57.30 Diverticulosis of large intestine without perforation or abscess without bleeding (principal); K64.4 Residual hemorrhoidal skin tags; K64.8 Other hemorrhoids; I25.10 Atherosclerotic heart disease of native coronary artery without angina pectoris; I10 Essential (primary) hypertension; I48.91 Unspecified atrial fibrillation; M19.90 Unspecified osteoarthritis, unspecified site; K21.9 Gastro-esophageal reflux disease without esophagitis; Z95.0 Presence of cardiac pacemaker; Z95.5 Presence of coronary angioplasty implant and graft; Z85.46 Personal history of malignant neoplasm of prostate; Z85.828 Personal history of other malignant neoplasm of skin; Z92.3 Personal history of irradiation; Z95.3 Presence of xenogenic heart valve; Z90.49 Acquired absence of other specified parts of digestive tract; Z98.890 Other specified postprocedural states; Z98.49 Cataract extraction status, unspecified eye; Z96.1 Presence of intraocular lens; Z87.891 Personal history of nicotine dependence; Z79.891 Long term (current) use of opiate analgesic; Z79.01 Long term (current) use of anticoagulants; Z79.82 Long term (current) use of aspirin; Z79.1 Long term (current) use of non-steroidal anti-inflammatories (NSAID); Z79.899 Other long term (current) drug therapy; Z80.42 Family history of malignant neoplasm of prostate; Z82.49 Family history of ischemic heart disease and other diseases of the circulatory system; Z87.19 Personal history of other diseases of the digestive system
CPT/HCPCS: 45378; J2704

== ENCOUNTER → 2020-03-16 | Outpatient (CLI) | payer MEDICARE ==
--- NOTE | 2020-03-16 17:04 | CT ---
EXAMINATION TYPE: CT brain wo/w con DATE OF EXAM: 03/16/2020 COMPARISON: None. HISTORY: Visual changes CT DLP: 2289.4 mGycm Automated exposure control for dose reduction was used. CONTRAST: CT scan of the head is performed without and with IV Contrast, patient injected with 100 mL of Isovue 300. FINDINGS: Noncontrast images show no acute intracranial hemorrhage or midline shift. Mild ventricular and sulc al prominence. Areas of low-attenuation in the deep and periventricular white matter are present. Pos tcontrast images show no suspicious enhancing intracranial mass. Vascular calcification distal verteb ral and internal carotid arteries bilaterally is present. Mild mucosal thickening involving the ethmo id sinuses bilaterally. Visualized globes are intact. Suprasellar cistern is preserved. IMPRESSION: There is mild diffuse age-related cerebral atrophy and moderate chronic small vessel isch emic change. No suspicious enhancement is seen.
== END | disposition home or self-care (01) ==
LOC: RADCTMAIN 15:33
PROVIDERS: ATTEND Family Medicine
DX: G31.1 Senile degeneration of brain, not elsewhere classified (principal); I67.82 Cerebral ischemia
CPT/HCPCS: 82565; 84520; 70470; 36415; Q9967

== ENCOUNTER → 2020-04-01 | Outpatient (CLI) | payer MEDICARE ==
--- NOTE | 2020-04-01 11:13 | CT ---
EXAMINATION TYPE: CT chest wo con DATE OF EXAM: 04/01/2020 COMPARISON: 03/28/2019 HISTORY: Myasthenia gravis with (acute) exacerbation CT DLP: 410.3 mGycm. Automated Exposure Control for Dose Reduction was Utilized. TECHNIQUE: CT scan of the thorax is performed without IV contrast. FINDINGS: LUNGS: The lungs are grossly clear. At the left lung base is a lobulated nodular density measuring 3 x 1.5 cm.. There is no pleural effusion or pneumothorax seen. The tracheobronchial tree is patent. Tiny calcified granuloma measuring 2 mm left lower lobe best noted coronal image 87. MEDIASTINUM: Lack of IV contrast is noted to limit evaluation for mediastinal and especially hilar ad enopathy. There are no definitive greater than 1 cm hilar or mediastinal lymph nodes. There is a card iac device with postoperative changes compatible sternotomy. The heart is markedly enlarged and there is coronary artery calcification. Atherosclerotic change of the aorta and aortic valve. Small hiatal hernia noted. No mediastinal mass. OTHER: Multilevel severe degenerative disc disease. Chronic rib deformities are noted suggestive of r emote trauma. Mild chronic wedge deformities are seen in the thoracic spine. Postcholecystectomy mead ges noted. Splenic granuloma noted. IMPRESSION: 1. There is a lobulated 3 x 1.5 cm pleural-based density left lower lobe near the diaphragm. This cou ld be related to area of round atelectasis. Recommend PET scan to exclude neoplastic process. 2. Cardiac and coronary artery calcification .
== END | disposition home or self-care (01) ==
LOC: RADCTMAIN 10:06
PROVIDERS: ATTEND Psychiatry & Neurology Neurology
DX: J98.4 Other disorders of lung (principal); I25.10 Atherosclerotic heart disease of native coronary artery without angina pectoris; G70.00 Myasthenia gravis without (acute) exacerbation
CPT/HCPCS: 71250

== ENCOUNTER → 2020-04-14 | Outpatient (CLI) | payer MEDICARE ==
--- NOTE | 2020-04-16 18:19 | PE ---
Nuclear medicine PET/CT HISTORY: Lung carcinoma, initial comparison CT chest 04/01/2020 Patient received 9.3 mCi F-18 FDG intravenously in delayed scanning was performed from the skull base to the mid thighs. An attenuation correction CT, localization CT scan was also formed Chest and neck: Patient is post median sternotomy. There are extensive coronary artery calcifications . There is no pleural or pericardial effusion. There is no cervical or supraclavicular adenopathy, no mediastinal, axillary, or hilar adenopathy. Proximal right humeral fracture is present, patient is p ost left shoulder arthroplasty. Heart is enlarged. ABDOMEN: There is no adrenal mass or liver mass. Patient is post cholecystectomy. No suspicious hyper metabolic uptake. Extensive diverticular changes associated with the sigmoid colon. Prostate seeds ar e noted incidentally. No pelvic adenopathy. Osseous structures show no suspicious uptake. Degenerative disc change and facet arthropathy noted in the spine. IMPRESSION: The previously described lesion at the left lung base shows no associated hypermetabolic uptake. There is a proximal right humeral fracture. Postop changes. Coronary artery disease. Divertic ulosis.
== END | disposition home or self-care (01) ==
LOC: RADPETMAIN 16:22
PROVIDERS: ATTEND Family Medicine
DX: S42.201A Unspecified fracture of upper end of right humerus, initial encounter for closed fracture (principal); J98.4 Other disorders of lung; I25.10 Atherosclerotic heart disease of native coronary artery without angina pectoris; K57.90 Diverticulosis of intestine, part unspecified, without perforation or abscess without bleeding; Z90.49 Acquired absence of other specified parts of digestive tract; Z96.612 Presence of left artificial shoulder joint
CPT/HCPCS: 78815; A9552

== ENCOUNTER 2020-07-05 06:04 | Day surgery (SDC) | payer MEDICARE ==
[2020-07-04 09:20] VITALS: BMI 28.3
[~2020-07-05 06:04] MED LIST changes: +ALPRAZolam 0.25 MG TAB PO PRN; +ALPRAZolam 0.5 MG TAB PO PRN; -LACTATED RINGERS 1,000 ML IV SCH; +NITROGLYCERIN SL TABS 0.4 MG TAB SUBLINGUAL PRN; +SODIUM CHLORIDE 0.9% 1,000 ML in EMPTY BAG 1 BAG IV ONE
[2020-07-05] MEDS ORDERED: SODIUM CHLORIDE 0.9% 1,000 ML IV ONE (06:15)
[2020-07-05] MEDS ORDERED: ATORVASTATIN 80 MG TAB PO ONE (07:00)
[2020-07-05] MEDS ORDERED: ASPIRIN 325 MG TAB PO ONE (07:00)
[2020-07-05 07:07] LABS: INR 1.2 (<1.2); Prothrombin Time 11.9 sec (9.0-12.0)
[2020-07-05] MEDS ORDERED: fentaNYL (PF) 50 MCG/ML 2 ML AMP ONE (07:07)
[2020-07-05 07:17] VITALS: RESP 16; TEMP 97.8
[2020-07-05] MEDS ORDERED: VERAPAMIL 2.5 MG/ML 2 ML AMP ONE (07:19)
[2020-07-05] MEDS ORDERED: LIDOCAINE 1% INJ 10MG/ML (20 ML MDV) ONE (07:19)
[2020-07-05] MEDS: fentaNYL (PF) 50 MCG/ML 2 ML AMP IV ONE ×2 (07:20→08:10)
[2020-07-05] MEDS ORDERED: BENZOCAINE SPRAY 1 CAN MUCOUS MEM ONE (07:20)
[2020-07-05] MEDS: MIDAZOLAM 2 MG/2 ML VIAL IV ONE ×2 (07:20→07:56)
[2020-07-05] MEDS ORDERED: HEPARIN SODIUM 1,000 UN/ML (10ML VL) ONE (07:54)
[2020-07-05] MEDS ORDERED: LIDOCAINE 1% INJ 10MG/ML (20 ML MDV) SQ ONE (07:57)
[2020-07-05] MEDS ORDERED: IV FLUID CONTINUATION 1,000 ML IV ONE (08:00)
[2020-07-05] MEDS: VERAPAMIL SYRINGE (5 MG/10 ML) INTRAARTER ONE ×2 (08:00→08:13)
[2020-07-05] MEDS ORDERED: HEPARIN SODIUM 1,000 UN/ML (10ML VL) IV ONE (08:27)
[2020-07-05] MEDS ORDERED: IOPAMIDOL-370 125ML BTL INJ ONE (08:42)
[2020-07-05] MEDS ORDERED: IOPAMIDOL-370 50ML BTL INJ ONE (08:42)
[2020-07-05] MEDS ORDERED: RX INFO: IV CONTRAST WAS GIVEN 1 EACH MISC MISCELLANE PRN (08:56)
[2020-07-05] MEDS ORDERED: traMADol 50 MG TAB PO PRN (08:57)
[2020-07-05] MEDS ORDERED: NON FORMULARY DRUG (Turmeric Root Extract [Turmeric] 500 MG Capsule) PO SCH (09:00)
[2020-07-05] MEDS ORDERED: METOPROLOL TARTRATE 50 MG TAB PO SCH (09:00)
[2020-07-05] MEDS ORDERED: SODIUM CHLORIDE 0.9% 1,000 ML IV SCH (09:00)
[2020-07-05] MEDS ORDERED: lisinopriL 20 MG TAB PO SCH (09:00)
[2020-07-05] MEDS ORDERED: ASPIRIN 81 MG PO SCH (09:00)
[2020-07-05] MEDS ORDERED: PANTOPRAZOLE 40 MG TABLET PO SCH (09:00)
[2020-07-05] MEDS ORDERED: hydroCHLOROthiazide 25 MG TAB PO SCH (09:00)
--- NOTE | 2020-07-05 09:32 | ECHOT ---
TRANSESOPHAGEAL ECHOCARDIOGRAM TRANSESOPHAGEAL ECHOCARDIOGRAM: INDICATION: Evaluation of aortic valve. PROCEDURE: After explaining the procedure to the patient, its risks and complications, his blood pressure, heart rate, O2 saturation was monitored. The throat was sprayed with Cetacaine. He received 1 mg intravenous Versed, 50 mcg intravenous fentanyl. The probe was introduced in the esophagus without difficulty. Images were obtained. Following that, the probe was removed, there was no immediate complication. FINDINGS: Left atrial size is dilated. Left ventricular size and systolic function are normal. The aortic valve is a bioprosthetic valve with mild thickening, mitral anulus calcification was noted. Tricuspid valve is normal. A wire was noted in the right ventricle. No pericardial effusion was noted. Contrast bubble study revealed no evidence of shunting across the interatrial septum. Doppler pulse wave and color Doppler obtained and revealed severe aortic regurgitation with mild mitral and tricuspid regurgitation. The peak gradient across the aortic valve was 31 mmHg with a mean of 60 mmHg. There was no shunting by color Doppler study. CONCLUSION: 1. Dilated left atrium. 2. Normal left ventricular size and systolic function. 3. Bioprosthetic aortic valve with severe aortic regurgitation. 4. Mild mitral and tricuspid regurgitation. 5. No shunting across the interatrial septum. MMODL / IJN: [id number] /
--- NOTE | 2020-07-05 10:05 | CC ---
CARDIAC CATHETERIZATION REPORT Mr. Worthington is an 80-year-old male with a known history of coronary artery disease, status post percutaneous revascularization of the right coronary artery in 2018, status post aortic valve replacement, who presented with gross symptoms of progressive dyspnea, was found to have severe aortic regurgitation with mild function of his bioprosthetic aortic valve. In view of that, recommendation made regarding cardiac catheterization. The procedures, risks, and complication were discussed with the patient who is in full understanding and agreement. PROCEDURE: Patient was brought to the mechanical laboratory technician in a fasting state after receiving fentanyl and Benadryl and achieving moderate conscious sedated state. Using Xylocaine anesthesia and Seldinger technique, a 6-Slovak sheath was introduced in the right radial artery. Multiple attempts to advance the right Mariaa catheter, 5-Slovak 4 bend, a 5- Slovak Alberto and a 5-Slovak 3.5 left Maria A were unsuccessful because of the severe tortuosity of the right subclavian. At that point, using Xylocaine anesthesia and Seldinger technique, a 6-Slovak sheath was introduced in the right femoral artery. That sheath was exchanged for a long sheath and subsequently selective right and left coronary angiography performed using 5-Slovak 4 bend right Maria A and 6-Slovak 4 bend left Maria A catheter. Multiple views of the coronary artery including hemiaxial views were obtained. Following that, a 6-Slovak tight pigtail catheter distally in the ascending aorta and URDU view of the ascending aorta was performed. Following that, catheter and sheath were removed. Hemostasis was obtained with deployment of a TR band on the right radial artery and Angio-Seal in the right femoral artery. There was no immediate complication. Patient is returned to his room in stable condition. Of note, the patient received a total of 4000 units of intravenous heparin as well as intra- arterial verapamil. FINDINGS: LEFT MAIN: This is a short size vessel, bifurcating into left circumflex, left anterior descending artery. Left main coronary artery has no evidence of high- grade stenosis. LEFT ANTERIOR DESCENDING ARTERY: This is a large-sized vessel, reaching toward the apex with a wraparound apex segment. The left anterior descending artery has mild intimal disease of 10% to 20% without any evidence of high-grade stenosis. LEFT CIRCUMFLEX: This is a large nondominant vessel, giving rise to 3 obtuse marginal branch. The second one is large in caliber after the takeoff of the second obtuse marginal branch, the third obtuse marginal branch is small in caliber. The takeoff of the obtuse marginal branch has 60%-70% stenosis. The rest of the vessel has no high- grade stenosis. RIGHT CORONARY ARTERY: This is a dominant vessel, large in caliber, bifurcating distally into PDA and posterolateral segment and branches. The right coronary artery in mid segment, at the stented area, has about a 50% stenosis. The rest of the vessel has no evidence of high-grade stenosis. LEFT VENTRICULOGRAM: Left ventriculogram was not performed. AORTOGRAM: Aortogram was performed in the URDU view and revealed a bioprosthetic aortic valve with 4+ aortic regurgitation. CONCLUSION: 1. Moderate disease in the the mid right coronary artery. 2. Moderate to severe disease in the distal left circumflex in a small branch. 3. 4+ aortic regurgitation. RECOMMENDATION: In view of finding anatomy, I recommend proceeding with evaluation for TAVR using [id number] approach. Those findings and recommendation were discussed with the patient and his family who are in full understanding and agreement. Duration of the sedation is 46 minutes. MMODL / IJN: [id number] / YENNY
--- NOTE | 2020-07-05 10:11 | CC ---
CARDIAC CATHETERIZATION REPORT DATE OF SERVICE: 07/05/2020 RE: Owen Worthington Dear Dr. Alejandra; I had the pleasure to perform cardiac catheterization on Mr. Worthington at [facility] on July 05, 2020 and a full copy of the procedure note will be forwarded to you. In brief, he was found to have moderate obstructive coronary disease in the right coronary artery with severe aortic regurgitation with failure of his bioprosthetic aortic valve. In view of that, I have recommend proceeding with evaluation for transaortic valve replacement with [id number] approach. I will keep you updated on his progress and thank you again for allowing me to participate in this patient's care. Please feel free to call for any questions. Sincerely yours, MD MIKALA Sterling / KURTN: [id number] /
[2020-07-05 11:06] VITALS: PULSE 60
[2020-07-05 13:22] VITALS: BP 109/55
[2020-07-05] MEDS ORDERED: TAMSULOSIN 0.4 MG CAP.ER.24H PO SCH (21:00)
[2020-07-05] MEDS ORDERED: DOXAZOSIN 4 MG TAB PO SCH (21:00)
== END 2020-07-05 14:27 | disposition home or self-care (01) ==
LOC: CATHCVL 06:04
PROVIDERS: ATTEND Internal Medicine Interventional Cardiology
DX: I25.10 Atherosclerotic heart disease of native coronary artery without angina pectoris (principal); I77.1 Stricture of artery; I08.3 Combined rheumatic disorders of mitral, aortic and tricuspid valves; T82.857A Stenosis of other cardiac prosthetic devices, implants and grafts, initial encounter; R06.00 Dyspnea, unspecified; I10 Essential (primary) hypertension; E78.00 Pure hypercholesterolemia, unspecified; Z95.3 Presence of xenogenic heart valve; Z95.5 Presence of coronary angioplasty implant and graft
CPT/HCPCS: 93312; 93320; 93325; 93458; 93567; 85610; C1760; C1769 ×3; C1894 ×3; J2250; J2001; J3010; J1644; Q9967 ×2

== ENCOUNTER → 2020-07-20 | Outpatient (CLI) | payer MEDICARE | END | disposition home or self-care (01) | LOC: LABWHC1 12:49 | PROVIDERS: ATTEND Student in an Organized Health Care Education/Training Program | DX: I35.9 Nonrheumatic aortic valve disorder, unspecified (principal) | CPT/HCPCS: 36415; 85730 ==

== ENCOUNTER → 2020-08-04 | Outpatient (CLI) | payer MEDICARE ==
--- NOTE | 2020-08-04 12:57 | CT ---
EXAMINATION TYPE: CT shoulder RT wo con DATE OF EXAM: 08/04/2020 COMPARISON: None HISTORY: presurgical humerus fracture CT DLP: 471.[address] of the right shoulder with reconstruction imaging. TECHNIQUE: Unenhanced CT of the right shoulder was performed with bone and soft tissue window setting s submitted in the axial coronal and sagittal planes. At a separate workstation [id number] TR imaging was o btained. FINDINGS: There is comminuted fracture involving the right humeral surgical neck with the proximal mi gration of the distal fracture component. There is rotation of the humeral head. Moderate narrowing g lenohumeral joint space. No additional fractures are seen. Severe subacromial loss joint space narrow ing is evident. Bony remodeling identified of the undersurface of the acromion likely related to outpatient pharmacy manager mauro rotator cuff tear. No distinct soft tissue mass is identified. IMPRESSION: 1. There is comminuted fracture involving the right humeral surgical neck with the proximal migration of the distal fracture component.
== END | disposition home or self-care (01) ==
LOC: RADCTMAIN 12:06
PROVIDERS: ATTEND Orthopaedic Surgery Sports Medicine
DX: Z01.818 Encounter for other preprocedural examination (principal); C40.01 Malignant neoplasm of scapula and long bones of right upper limb; S42.211D Unspecified displaced fracture of surgical neck of right humerus, subsequent encounter for fracture with routine healing; I11.0 Hypertensive heart disease with heart failure; I50.9 Heart failure, unspecified; I48.91 Unspecified atrial fibrillation; M19.011 Primary osteoarthritis, right shoulder; Z85.9 Personal history of malignant neoplasm, unspecified

== ENCOUNTER 2021-01-27 15:47 | Emergency (ER) | payer MEDICARE ==
[2021-01-27 15:52] VITALS: TEMP 97.6
--- NOTE | 2021-01-27 15:53 | ED ---
General Adult HPI - General Chief complaint: Shortness of Breath Stated complaint: Weakness Source: patient Mode of arrival: wheelchair Limitations: no limitations - History of Present Illness Initial comments: Patient presents to the ED with his for evaluation. Patient states that he has felt generally weak and tired for the past couple of weeks, and he also admits to feeling mildly dyspneic at times. 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 Patient states that he recently had blood work done, and he was told that his hemoglobin and renal function were a little "off". Patient states that he has had a heart valve replacement, and he states that he is on Eliquis anticoagulation therapy. Patient denies having any pain, fever or chills, headache, focal numbness/weakness/neuro deficit, chest pain or pressure, cough or cold symptoms, palpitations, dizziness, abdominal pain, n ausea/vomiting/diarrhea, bloody or melanotic stool, dysuria or urinary symptoms, decreased urine output, leg or calf swelling or pain, or any other symptoms or complaints. Patient states that he is fully vaccinated against Covid. - Related Data Home Medications Medication Instructions Recorded Confirmed Metoprolol Tartrate [Lopressor] 50 mg PO BID 02/02/15 07/05/20 Omeprazole [PriLOSEC] 20 mg PO DAILY 02/02/15 07/05/20 Terazosin [Hytrin] 5 mg PO HS 02/02/15 07/05/20 hydroCHLOROthiazide [Hydrodiuril] 25 mg PO QAM 02/02/15 07/05/20 ramipriL [Altace] 5 mg PO QAM 02/02/15 07/05/20 traMADol HCL [Ultram] 50 mg PO TID PRN 02/02/15 07/05/20 Ascorbic Acid [Vitamin C] 500 mg PO DAILY 08/25/15 07/05/20 Cholecalciferol [Vitamin D3 (25 1,000 unit PO DAILY 08/25/15 07/05/20 Mcg = 1000 Iu)] Multivitamins, Thera [Multivitamin 1 tab PO DAILY 08/25/15 07/05/20 (formulary)] Acetaminophen Tab [Tylenol] 1,000 mg PO TID PRN 07/05/16 07/05/20 Glucosam/Ray-Msm1/C/Kai/Bosw 1 tab PO BID 07/05/16 07/05/20 [Glucosamine-Chondroitin Tablet] Iron 28mg 28 mg PO Q3D 07/05/16 07/05/20 Magnesium Oxide [Mag-Ox] 250 mg PO HS 07/05/16 07/05/20 Tamsulosin HCl [Flomax] 0.4 mg PO HS 08/28/18 07/05/20 Turmeric Root Extract [Turmeric] 500 mg PO DAILY 03/26/19 07/05/20 Ubidecarenone [Co Q-10] 100 mg PO DAILY 03/26/19 07/05/20 Aspirin [Adult Low Dose Aspirin EC] 81 mg PO DAILY 06/09/19 07/05/20 Diclofenac Sodium [Voltaren] 75 mg PO DAILY 02/29/20 07/05/20 Evolocumab [Repatha Syringe] 140 mg SQ Q14D 02/29/20 07/05/20 Warfarin [Coumadin] 2.5 mg PO DAILY 02/29/20 07/04/20 Myrbetriq(Unknown Dose) 1 tab PO DAILY 07/04/20 Pyridostigmine Hawi [Mestinon] 0.25 tab PO DAILY 07/04/20 07/05/20 Allergies Allergy/AdvReac Type Severity Reaction Status Date / Time No Known Allergies Allergy Verified 01/27/21 15:51 Review of Systems ROS Statement: Those systems with pertinent positive or pertinent negative responses have been documented in the HPI. ROS Other: All systems not noted in ROS Statement are negative. Past Medical History Past Medical History: Atrial Fibrillation, Cancer, GERD/Reflux, Hypertension, Osteoarthritis (OA), Prostate Disorder, Vascular Disorder Additional Past Medical History / Comment(s): HX OF PROSTATE AND SKIN CANCER, [employer] PACEMAKER, [facility] HEART VALVE (COW), TORN LEFT ROTATOR CUFF, DEGENERATIVE ARTHRITIS IN BACK WITH PAIN, LOW IRON AND LEG CRAMPS, R foot OA-pt wears a brace. dislocated shoulder interecostal neuroelgia History of Any Multi-Drug Resistant Organisms: None Reported Past Surgical History: Cardiac Valve Replacement, Cholecystectomy, Heart Catheterization, Hernia Repair, Joint Replacement, Orthopedic Surgery, Pacemaker Additional Past Surgical History / Comment(s): 07/09/16 Reverse L shoulder rotator cuff repair arthroplasty. Other surgical HX: AORTIC VALVE REPLACEMENT ([facility]) ,BILATERAL GREAT TOES JT REPAIR,LEFT SHOULDER, PAIN CLINIC PROCEDURE, CATARACTS WITH LENS IMPLANTS , EMILEE INGUINAL HERNIAS, HIATAL HERNIA., [employer] PACEMAKER. STENT RCA 08/27/18 Past Anesthesia/Blood Transfusion Reactions: Motion Sickness, Postoperative Nausea & Vomiting (PONV) Date of Last Stent Placement:: 2017 Type of Cardiac Device: Permanent Pacemaker Device Placement Date:: 2010 LT CHEST Past Psychological History: No Psychological Hx Reported Smoking Status: Never smoker Past Alcohol Use History: Daily Past Drug Use History: None Reported - Past Family History Brother(s) Family Medical History: Cancer Additional Family Medical History / Comment(s): BROTHERS X2 PROSTATE,HIATAL HERNIA Mother Family Medical History: Congestive Heart Failure (CHF) Additional Family Medical History / Comment(s): EMPHYSEMA Father Family Medical History: Congestive Heart Failure (CHF) Additional Family Medical History / Comment(s): EMPHYSEMA General Exam Limitations: no limitations General appearance: alert, in no apparent distress Head exam: Present: atraumatic, normocephalic Eye exam: Present: normal appearance, EOMI ENT exam: Present: mucous membranes moist Neck exam: Present: other (Trachea is in midline) Respiratory exam: Present: normal lung sounds bilaterally. Absent: respiratory distress, wheezes, rales, rhonchi, stridor Cardiovascular Exam: Present: regular rate, normal rhythm, other (Loud S2, normal radial pulses bilaterally) GI/Abdominal exam: Present: soft. Absent: distended, tenderness, guarding Extremities exam: Present: other (Negative Homans sign bilaterally). Absent: tenderness, pedal edema, calf tenderness Neurological exam: Present: alert, oriented X3, CN II-XII intact. Absent: motor sensory deficit Psychiatric exam: Present: normal affect, normal mood Skin exam: Present: warm, dry, intact, normal color Course Vital Signs 01/27/21 01/27/21 15:48 16:47 Temperature 97.6 F Pulse Rate 65 Respiratory 20 18 Rate Blood Pressure 124/79 O2 Sat by Pulse 96 Oximetry - Reevaluation(s) Reevaluation #1: 01/27/21 18:01 Patient denies development of any new symptoms while in the ED. Patient remains alert and breathing comfortably with a normal room air oxygen saturation. Patient and are aware the patient's test results, and patient feels comfortable going home at this time. Patient was counseled about generalized weakness and dyspnea. Patient was clearly explained return and follow-up instructions. Patient was instructed to follow up with his pit shovel operator in 2 days as scheduled, and he was also instructed to follow up closely with his primary care provider and his neurologist. Patient was instructed to have a low threshold for return to the emergency department should his symptoms worsen. Patient feels comfortable with this plan. EKG Findings - EKG Comments: EKG Findings:: Ventricular paced rhythm, ventricular rate of 65 bpm, QRS duration of 170 ms Medical Decision Making - Medical Decision Making Patient's labs are fairly unremarkable other than an elevated BNP level in the 4000's. Patient does not however have any clinical evidence of CHF, and he has no evidence of pulmonary edema and chest x-ray. Patient is alert and breathing comfortably with a normal room air oxygen saturation in the ED. Patient's t roponin is negative. Patient's chest x-ray shows mild left basilar atelectasis, but is otherwise unremarkable. Patient is afebrile and without leukocytosis. I do not suspect an emergent medical condition at this time. Will discharge patient home with his at this time. - Lab Data Result diagrams: 01/27/21 16:27 01/27/21 16:27 Lab Results 01/27/21 01/27/21 01/27/21 Range/Units 16:27 16:27 16:27 WBC 6.9 (3.8-10.6) k/uL RBC 4.26 L (4.30-5.90) m/uL Hgb 13.6 (13.0-17.5) gm/dL Hct 40.8 (39.0-53.0) % MCV 95.8 (80.0-100.0) fL MCH 31.9 (25.0-35.0) pg MCHC 33.3 (31.0-37.0) g/dL RDW 14.1 (11.5-15.5) % Plt Count 109 L (150-450) k/uL MPV 9.2 Neutrophils % 75 % Lymphocytes % 11 % Monocytes % 9 % Eosinophils % 3 % Basophils % 1 % Neutrophils # 5.2 (1.3-7.7) k/uL Lymphocytes # 0.8 L (1.0-4.8) k/uL Monocytes # 0.6 (0-1.0) k/uL Eosinophils # 0.2 (0-0.7) k/uL Basophils # 0.1 (0-0.2) k/uL PT 10.8 (9.0-12.0) sec INR 1.0 (<1.2) APTT 24.8 (22.0-30.0) sec Sodium (137-145) mmol/L Potassium (3.5-5.1) mmol/L Chloride (98-107) mmol/L Carbon Dioxide (22-30) mmol/L Anion Gap mmol/L BUN (9-20) mg/dL Creatinine (0.66-1.25) mg/dL Est GFR (CKD-EPI)AfAm (>60 ml/min/1.73 sqM) Est GFR (CKD-EPI)NonAf (>60 ml/min/1.73 sqM) Glucose (74-99) mg/dL Plasma Lactic Acid Terrell (0.7-2.0) mmol/L Calcium (8.4-10.2) mg/dL Magnesium (1.6-2.3) mg/dL Total Bilirubin (0.2-1.3) mg/dL AST (17-59) U/L ALT (4-49) U/L Alkaline Phosphatase (38-126) U/L Creatine Kinase (55-170) U/L Troponin I (0.000-0.034) ng/mL NT-Pro-B Natriuret Pep pg/mL Total Protein (6.3-8.2) g/dL Albumin (3.5-5.0) g/dL TSH (0.465-4.680) mIU/L Urine Color Yellow Urine Appearance Clear (Clear) Urine pH 5.5 (5.0-8.0) Ur Specific [place] 1.026 (1.001-1.035) Urine Protein Negative (Negative) Urine Glucose (UA) Negative (Negative) Urine Ketones Negative (Negative) Urine Blood Negative (Negative) Urine Nitrite Negative (Negative) Urine Bilirubin Negative (Negative) Urine Urobilinogen <2.0 (<2.0) mg/dL Ur Leukocyte Esterase Negative (Negative) 01/27/21 01/27/21 01/27/21 Range/Units 16:27 16:27 16:27 WBC (3.8-10.6) k/uL RBC (4.30-5.90) m/uL Hgb (13.0-17.5) gm/dL Hct (39.0-53.0) % MCV (80.0-100.0) fL MCH (25.0-35.0) pg MCHC (31.0-37.0) g/dL RDW (11.5-15.5) % Plt Count (150-450) k/uL MPV Neutrophils % % Lymphocytes % % Monocytes % % Eosinophils % % Basophils % % Neutrophils # (1.3-7.7) k/uL Lymphocytes # (1.0-4.8) k/uL Monocytes # (0-1.0) k/uL Eosinophils # (0-0.7) k/uL Basophils # (0-0.2) k/uL PT (9.0-12.0) sec INR (<1.2) APTT (22.0-30.0) sec Sodium 138 (137-145) mmol/L Potassium 4.5 (3.5-5.1) mmol/L Chloride 107 (98-107) mmol/L Carbon Dioxide 25 (22-30) mmol/L Anion Gap 6 mmol/L BUN 41 H (9-20) mg/dL Creatinine 1.43 H (0.66-1.25) mg/dL Est GFR (CKD-EPI)AfAm 53 (>60 ml/min/1.73 sqM) Est GFR (CKD-EPI)NonAf 46 (>60 ml/min/1.73 sqM) Glucose 89 (74-99) mg/dL Plasma Lactic Acid Terrell 0.9 (0.7-2.0) mmol/L Calcium 9.0 (8.4-10.2) mg/dL Magnesium 2.1 (1.6-2.3) mg/dL Total Bilirubin 0.3 (0.2-1.3) mg/dL AST 33 (17-59) U/L ALT 30 (4-49) U/L Alkaline Phosphatase 69 (38-126) U/L Creatine Kinase 94 (55-170) U/L Troponin I 0.014 (0.000-0.034) ng/mL NT-Pro-B Natriuret Pep pg/mL Total Protein 5.7 L (6.3-8.2) g/dL Albumin 3.7 (3.5-5.0) g/dL TSH 2.230 (0.465-4.680) mIU/L Urine Color Urine Appearance (Clear) Urine pH (5.0-8.0) Ur Specific [place] (1.001-1.035) Urine Protein (Negative) Urine Glucose (UA) (Negative) Urine Ketones (Negative) Urine Blood (Negative) Urine Nitrite (Negative) Urine Bilirubin (Negative) Urine Urobilinogen (<2.0) mg/dL Ur Leukocyte Esterase (Negative) 01/27/21 Range/Units 16:27 WBC (3.8-10.6) k/uL RBC (4.30-5.90) m/uL Hgb (13.0-17.5) gm/dL Hct (39.0-53.0) % MCV (80.0-100.0) fL MCH (25.0-35.0) pg MCHC (31.0-37.0) g/dL RDW (11.5-15.5) % Plt Count (150-450) k/uL MPV Neutrophils % % Lymphocytes % % Monocytes % % Eosinophils % % Basophils % % Neutrophils # (1.3-7.7) k/uL Lymphocytes # (1.0-4.8) k/uL Monocytes # (0-1.0) k/uL Eosinophils # (0-0.7) k/uL Basophils # (0-0.2) k/uL PT (9.0-12.0) sec INR (<1.2) APTT (22.0-30.0) sec Sodium (137-145) mmol/L Potassium (3.5-5.1) mmol/L Chloride (98-107) mmol/L Carbon Dioxide (22-30) mmol/L Anion Gap mmol/L BUN (9-20) mg/dL Creatinine (0.66-1.25) mg/dL Est GFR (CKD-EPI)AfAm (>60 ml/min/1.73 sqM) Est GFR (CKD-EPI)NonAf (>60 ml/min/1.73 sqM) Glucose (74-99) mg/dL Plasma Lactic Acid Terrell (0.7-2.0) mmol/L Calcium (8.4-10.2) mg/dL Magnesium (1.6-2.3) mg/dL Total Bilirubin (0.2-1.3) mg/dL AST (17-59) U/L ALT (4-49) U/L Alkaline Phosphatase (38-126) U/L Creatine Kinase (55-170) U/L Troponin I (0.000-0.034) ng/mL NT-Pro-B Natriuret Pep 4310 pg/mL Total Protein (6.3-8.2) g/dL Albumin (3.5-5.0) g/dL TSH (0.465-4.680) mIU/L Urine Color Urine Appearance (Clear) Urine pH (5.0-8.0) Ur Specific [place] (1.001-1.035) Urine Protein (Negative) Urine Glucose (UA) (Negative) Urine Ketones (Negative) Urine Blood (Negative) Urine Nitrite (Negative) Urine Bilirubin (Negative) Urine Urobilinogen (<2.0) mg/dL Ur Leukocyte Esterase (Negative) - Radiology Data Radiology results: image reviewed (Chest x-ray: Left basilar atelectasis) Disposition Clinical Impression: Generalized weakness, Dyspnea Disposition: HOME SELF-CARE Condition: Stable Instructions (If sedation given, give patient instructions): Dyspnea (ED), Weakness (ED) Additional Instructions: Return to the ER immediately should you develop increased shortness of breath, a fever, chest pain, vomiting, feeling dizzy or faint, increased weakness, or new or worsening symptoms. Follow up closely with your primary care provider, as well as your pit shovel operator and your neurologist. Is patient prescribed a controlled substance at d/c from ED?: No Referrals: Kendra Frey III, MD [Primary Care Provider] - 1-2 days Time of Disposition: 18:05
[2021-01-27 16:46] LABS: Appearance,Urine Clear (Clear); Basophils # (A) 0.1 k/uL (0-0.2); Basophils % (A) 1 %; Bilirubin,Urine Negative (Negative); Blood,Urine Negative (Negative); Color,Urine Yellow; Eosinophils # (A) 0.2 k/uL (0-0.7); Eosinophils % (A) 3 %; Glucose,Urine (UA) Negative (Negative); HCT 40.8 % (39.0-53.0); HGB 13.6 gm/dL (13.0-17.5); Ketones,Urine Negative (Negative); Leukocyte Esterase,Urine Negative (Negative); Lymphocytes # (A) 0.8 k/uL (1.0-4.8); Lymphocytes % (A) 11 %; MCH 31.9 pg (25.0-35.0); MCHC 33.3 g/dL (31.0-37.0); MCV 95.8 fL (80.0-100.0); Mean Platelet Volume 9.2; Monocytes # (A) 0.6 k/uL (0-1.0); Monocytes % (A) 9 %; Neutrophils # (A) 5.2 k/uL (1.3-7.7); Neutrophils % (A) 75 %; Nitrite,Urine Negative (Negative); PH, Urine 5.5 (5.0-8.0); Platelet Count 109 k/uL (150-450); Protein,Urine Negative (Negative); RBC 4.26 m/uL (4.30-5.90); RDW 14.1 % (11.5-15.5); Specific Gravity,Urine 1.026 (1.001-1.035); Urobilinogen,Urine <2.0 mg/dL (<2.0); WBC 6.9 k/uL (3.8-10.6)
[2021-01-27 16:50] VITALS: RESP 18
[2021-01-27 16:57] LABS: Albumin 3.7 g/dL (3.5-5.0); Magnesium 2.1 mg/dL (1.6-2.3); Potassium 4.5 mmol/L (3.5-5.1); Total Bilirubin 0.3 mg/dL (0.2-1.3); Total Protein 5.7 g/dL (6.3-8.2)
[2021-01-27 17:00] LABS: Partial Thromboplastin Time 24.8 sec (22.0-30.0); Prothrombin Time 10.8 sec (9.0-12.0)
--- NOTE | 2021-01-27 17:35 | XR ---
EXAMINATION TYPE: XR chest 2V DATE OF EXAM: 01/27/2021 COMPARISON: CT 04/01/2020. HISTORY: Weakness and shortness of breath. TECHNIQUE: Frontal and lateral views of the chest are obtained. FINDINGS: There is small left basilar opacity. No pleural effusion, or pneumothorax seen. The cardi ac silhouette size is within normal limits. Prior cardiothoracic postsurgical changes seen. The osse ous structures are without acute abnormality. IMPRESSION: Left basilar infiltrates.
[2021-01-27 18:07] VITALS: BP 143/94; PULSE 68
== END 2021-01-27 18:12 | disposition home or self-care (01) ==
LOC: EC 15:47
DX: R53.1 Weakness (principal); R06.02 Shortness of breath; I48.91 Unspecified atrial fibrillation; I10 Essential (primary) hypertension; K21.9 Gastro-esophageal reflux disease without esophagitis; M19.071 Primary osteoarthritis, right ankle and foot; Z79.01 Long term (current) use of anticoagulants; Z79.1 Long term (current) use of non-steroidal anti-inflammatories (NSAID); Z79.82 Long term (current) use of aspirin; Z82.49 Family history of ischemic heart disease and other diseases of the circulatory system; Z85.828 Personal history of other malignant neoplasm of skin; Z95.0 Presence of cardiac pacemaker; Z95.2 Presence of prosthetic heart valve
CPT/HCPCS: 36415; 71046; 80053; 81003; 82550; 83605; 83735; 83880; 84443; 84484; 85025; 85610; 85730; 93005; 99285

== ENCOUNTER 2021-02-02 09:45 | Day surgery (SDC) | payer MEDICARE ==
[2021-01-31 14:16] VITALS: BMI 29.2
[~2021-02-02 09:45] MED LIST changes: -ALPRAZolam 0.25 MG TAB PO PRN; -ALPRAZolam 0.5 MG TAB PO PRN; -NITROGLYCERIN SL TABS 0.4 MG TAB SUBLINGUAL PRN; +SODIUM CHLORIDE 0.9% 1,000 ML IV SCH; -SODIUM CHLORIDE 0.9% 1,000 ML in EMPTY BAG 1 BAG IV ONE; +ceFAZolin 1 GM in SODIUM CHLORIDE 0.9% 250 ML IRRIGATION PRN
[2021-02-02 10:05] VITALS: RESP 16; TEMP 98
[2021-02-02] MEDS ORDERED: fentaNYL (PF) 50 MCG/ML 2 ML AMP ONE (11:08)
[2021-02-02] MEDS ORDERED: LIDOCAINE 1% INJ 10MG/ML (20 ML MDV) ONE (11:08)
[2021-02-02] MEDS ORDERED: MIDAZOLAM 2 MG/2 ML VIAL IVP ONE (11:35)
[2021-02-02] MEDS ORDERED: fentaNYL (PF) 50 MCG/ML 2 ML AMP IVP ONE (11:35)
[2021-02-02] MEDS ORDERED: LIDOCAINE 1% INJ 10MG/ML (20 ML MDV) SQ ONE (11:37)
[2021-02-02 15:04] VITALS: PULSE 60
[2021-02-02 15:07] VITALS: BP 111/74
--- NOTE | 2021-02-06 08:28 | P.PCN ---
Date of Procedure: 03/05/21 Preoperative Diagnosis: Battery depletion Postoperative Diagnosis: The same Procedure(s) Performed: Replacement of the battery for depletion Description of Procedure: HISTORY: This is a 80-year-old gentleman with history of dual-chamber permanent pacemaker implantation was brought in for elective replacement of battery for depletion. CONSENT: I have discussed the risks and benefits as related to the above mentioned procedure and both sedation/analgesia as well as necessary blood product administration. The patient has indicated understanding and acceptance of the risks of the procedure discussed. PROCEDURE: Patient was brought to the lab in a fasting state. Patient was given IV Versed and fentanyl for sedation. The skin over the existing pulse generator was infiltrated with lidocaine. An incision was made in the skin and was deepened until the pectoral fascia was exposed. Hemostasis was obtained. The existing pulse generator was pulled out of the pocket. The leads were disconnected and were checked for thresholds. Conscious Sedation: Versed 0.5mg Fentanyl 12.5 micrograms Duration 40 minutes THRESHOLDS: ATRIAL: . 0.75 V at pulse width of 0.4 wi th impedance of 342 P-wave: 2.6 VENTRICULAR: 0.75 V at pulse width of 0.4 ms with impedance of 513 ohms R-wave: 16 mV THE LEADS: ATRIAL: This is manufactured by [employer]. Model number is 5076-45 and the serial number is [id number] VENTRICULAR: This is manufactured by [employer]. Model number is 5076-58. The serial number is [id number] THE EXPLANTED DEVICE: This is manufactured by [employer]. Model number is [id number] and the serial number is [id number] THE NEW DEVICE: This is manufactured by [employer]. Model number is [id number] and the serial number is [id number] The leads were then connected to a new pulse generator. Pacemaker seems to function normally. The pocket was irrigated with antibiotics. The pocket was closed in the usual fashion. Pectoral fascia was closed with 2-0 Prolene, the subcutaneous tissue was closed with 3-0 Prolene and the skin was closed with 4-0 Prolene. Patient tolerated the procedure well . Patient will be monitored on the telemetry unit for 2-3 hours. If stable patient be discharged home later today. PLAN: Patient will monitor for several hours.. If stable patient be discharged home to continue home medications and also antibiotic prophylactically FALLOW UP: With the Dr. Hwang in about one week
== END 2021-02-02 15:50 | disposition home or self-care (01) ==
LOC: CATHEP 09:45
PROVIDERS: ATTEND Internal Medicine Cardiovascular Disease
DX: Z45.010 Encounter for checking and testing of cardiac pacemaker pulse generator [battery] (principal); I25.10 Atherosclerotic heart disease of native coronary artery without angina pectoris; I48.0 Paroxysmal atrial fibrillation; E78.2 Mixed hyperlipidemia; I08.1 Rheumatic disorders of both mitral and tricuspid valves; I10 Essential (primary) hypertension; I65.23 Occlusion and stenosis of bilateral carotid arteries; Z82.49 Family history of ischemic heart disease and other diseases of the circulatory system; I27.20 Pulmonary hypertension, unspecified; I09.89 Other specified rheumatic heart diseases; Z95.5 Presence of coronary angioplasty implant and graft; Z79.01 Long term (current) use of anticoagulants; Z95.2 Presence of prosthetic heart valve; Z79.899 Other long term (current) drug therapy
CPT/HCPCS: 33228; 87635; C1894; C1769 ×3; C1785; J2250; J0690; J2001; J3010

== ENCOUNTER → 2021-02-22 | Outpatient (CLI) | payer MEDICARE ==
--- NOTE | 2021-02-23 11:23 | CT ---
EXAMINATION TYPE: CT abdomen wo/w con DATE OF EXAM: 02/22/2021 COMPARISON: 03/28/2019, PET/CT 04/14/2020 INDICATION: renal mass, ca hx DLP: 1334 mGycm, Automated exposure control for dose reduction was used. CONTRAST: 100 mL of Isovue 300. Study performed with Oral Contrast TECHNIQUE: Axial images were obtained from above the diaphragm to the pubic rami in the axial plane a t 5 mm thick sections. Reconstructed images are reviewed on the computer in the coronal plane. FINDINGS: Limited CT sections are obtained the lung bases. There is a 0.5 cm nodule within the right middle lo be. Series 4 image 9 is no interval change. Some minimal thickening of the distal right middle lobe a rterial branch may present, this is chronic. Series 4 image 8. Moderate coronary artery calcificatio n is present. CT ABDOMEN: Liver: Normal Spleen: Normal Pancreas: Normal Adrenal glands: The adrenal glands are normal. Gallbladder: Surgically absent Kidneys: There is a superior lateral right renal mass measuring 3.2 cm previously this has some mild peripheral enhancement similar to the cortex. This remains slightly hypodense in relation to the kidn ey on delayed images.. No hydronephrosis is present. No renal stones are evident. No cysts are prese nt. Delayed images were obtained through the kidneys, which remain otherwise unremarkable. Aorta: Vascular calcification is within the aorta. Inferior vena cava: Normal. IMPRESSIONS: 1. 3.2 cm mass superior right kidney. This has increased in size from 2.9 cm.
== END | disposition home or self-care (01) ==
LOC: RADCTMAIN 17:29
PROVIDERS: ATTEND Family Medicine
DX: N28.89 Other specified disorders of kidney and ureter (principal)
CPT/HCPCS: 82565; 84520; 74170; 36415; Q9967

== ENCOUNTER 2021-08-19 11:09 | Observation (INO) | payer MEDICARE ==
--- NOTE | 2021-08-19 11:21 | ED ---
General Adult HPI - General Stated complaint: AMS Time Seen by Provider: 08/19/21 11:11 Source: patient, EMS, RN notes reviewed Mode of arrival: EMS Limitations: no limitations - History of Present Illness Initial comments: Patient is a pleasant 81-year-old male presenting to the emergency department with concern for confusion. Patient believes symptoms started sometime between 8 and 9 AM. Patient woke up around 8 AM with minimal nausea. No vomiting. Patient states he has had some confusion since that time that is difficult for him to describe. Patient feels this has improved. Patient states he has difficulty recalling events from the past couple of days which continues. Patient states prior to a few days he does not have that recollection problem. Patient did recently have bladder surgery, 2 days ago however is unclear in details on that. Patient also has had a recent injection in his right eye. - Related Data Home Medications Medication Instructions Recorded Confirmed Metoprolol Tartrate [Lopressor] 50 mg PO BID 02/02/15 08/19/21 Omeprazole [PriLOSEC] 20 mg PO DAILY 02/02/15 08/19/21 Terazosin [Hytrin] 5 mg PO HS 02/02/15 08/19/21 hydroCHLOROthiazide [Hydrodiuril] 25 mg PO DAILY 02/02/15 08/19/21 ramipriL [Altace] 5 mg PO DAILY 02/02/15 08/19/21 traMADol HCL [Ultram] 50 mg PO TID PRN 02/02/15 08/19/21 Ascorbic Acid [Vitamin C] 500 mg PO DAILY 08/25/15 08/19/21 Multivitamins, Thera [Multivitamin 1 tab PO DAILY 08/25/15 08/19/21 (formulary)] Glucosam/Ray-Msm1/C/Kai/Bosw 1 tab PO BID 07/05/16 08/19/21 [Glucosamine-Chondroitin Tablet] Tamsulosin HCl [Flomax] 0.4 mg PO HS 08/28/18 08/19/21 Turmeric Root Extract [Turmeric] 500 mg PO DAILY 03/26/19 08/19/21 Diclofenac Sodium [Voltaren] 75 mg PO DAILY 02/29/20 08/19/21 Evolocumab [Repatha Syringe] 140 mg SQ Q14D 02/29/20 08/19/21 Acetaminophen [Tylenol Extra 1,000 mg PO TID PRN 08/19/21 08/19/21 Strength] Apixaban [Eliquis] 5 mg PO BID 08/19/21 08/19/21 C,E,Zinc,Copper 11/Oxvuk0j/Lut 1 cap PO DAILY 08/19/21 08/19/21 [Ocuvite Adult 50 Plus Softgel] Cephalexin [Keflex] 500 mg PO BID 08/19/21 08/19/21 Cholecalciferol [Vitamin D3 (25 50 mcg PO DAILY 08/19/21 08/19/21 Mcg = 1000 Iu)] Ferrous Sulfate [Iron] 325 mg PO DAILY 08/19/21 08/19/21 Mirabegron [Myrbetriq] 50 mg PO DAILY 08/19/21 08/19/21 Allergies Allergy/AdvReac Type Severity Reaction Status Date / Time No Known Allergies Allergy Verified 08/19/21 12:33 Review of Systems ROS Statement: Those systems with pertinent positive or pertinent negative responses have been documented in the HPI. ROS Other: All systems not noted in ROS Statement are negative. Constitutional: Denies: fever Eyes: Reports: as per HPI. Denies: eye pain ENT: Denies: ear pain Respiratory: Denies: cough Cardiovascular: Denies: chest pain Endocrine: Denies: fatigue Gastrointestinal: Denies: vomiting Genitourinary: Denies: dysuria Musculoskeletal: Denies: back pain Skin: Denies: rash Neurological: Reports: as per HPI, confusion Past Medical History Past Medical History: Atrial Fibrillation, Cancer, GERD/Reflux, Hypertension, Osteoarthritis (OA), Prostate Disorder, Vascular Disorder Additional Past Medical History / Comment(s): HX OF PROSTATE AND SKIN CANCER, [employer] PACEMAKER, Aortic VALVE (cow), TORN LEFT ROTATOR CUFF, DEGENERATIVE ARTHRITIS IN BACK WITH PAIN, LOW IRON AND LEG CRAMPS, R foot OA-pt wears a brace. dislocated shoulder interecostal neuroalgia History of Any Multi-Drug Resistant Organisms: None Reported Past Surgical History: Cardiac Valve Replacement, Cholecystectomy, Heart Catheterization, Heart Catheterization With Stent, Hernia Repair, Joint Replacement, Orthopedic Surgery, Pacemaker Additional Past Surgical History / Comment(s): 07/09/16 Reverse L shoulder rotator cuff repair arthroplasty. Other surgical HX: AORTIC VALVE REPLACEMENT (ST CINDY BOVINE,TAVR (cow valve) ,BILATERAL GREAT TOES JT REPAIR,LEFT SHOULDER, PAIN CLINIC PROCEDURE, CATARACTS WITH LENS IMPLANTS , EMILEE INGUINAL HERNIAS, HIATAL HERNIA., [employer] PACEMAKER. STENT RCA 08/27/18 Past Anesthesia/Blood Transfusion Reactions: Postoperative Nausea & Vomiting (PONV) Additional Past Anesthesia/Blood Transfusion Reaction / Comment(s): no hx blood transfusion Date of Last Stent Placement:: 2017 Type of Cardiac Device: Permanent Pacemaker Device Placement Date:: 2010 LT CHEST Smoking Status: Never smoker - Past Family History Brother(s) Family Medical History: Cancer Additional Family Medical History / Comment(s): BROTHERS X2 PROSTATE,HIATAL HERNIA Mother Family Medical History: Congestive Heart Failure (CHF) Additional Family Medical History / Comment(s): EMPHYSEMA Father Family Medical History: Congestive Heart Failure (CHF) Additional Family Medical History / Comment(s): EMPHYSEMA General Exam Limitations: no limitations General appearance: alert, in no apparent distress Head exam: Present: normocephalic Eye exam: Present: normal appearance, PERRL, EOMI ENT exam: Present: normal oropharynx Neck exam: Present: normal inspection Respiratory exam: Present: normal lung sounds bilaterally Cardiovascular Exam: Present: regular rate, normal rhythm GI/Abdominal exam: Present: soft. Absent: tenderness Extremities exam: Present: normal inspection Neurological exam: Present: alert, oriented X3, CN II-XII intact. Absent: motor sensory deficit Expanded Neurological exam: Present: protecting the airway Patient oriented to: Present: person, place, time Speech: Present: fluid speech Cranial nerves: EOM's Intact: Normal Sensory exam: Upper Extremity Light Touch: Normal, Lower Extremity Light Touch: Normal Motor strength exam: RUE: 5, LUE: 5, RLE: 5, LLE: 5 Eye Response: (4) open spontaneously Motor Response: (6) obeys commands Verbal Response: (5) oriented Psychiatric exam: Present: normal affect, normal mood Skin exam: Present: normal color Course Vital Signs 08/19/21 08/19/21 11:11 12:34 Temperature 97.7 F Pulse Rate 70 82 Respiratory 16 16 Rate Blood Pressure 171/96 167/90 O2 Sat by Pulse 96 98 Oximetry EKG Findings - EKG Comments: EKG Findings:: Paced rhythm with a rate of 60. OK 200. QRS 106. QT 444. QTC 444. Left axis. Septal Q waves. No acute ST change. Medical Decision Making - Medical Decision Making Patient reevaluated and further improved. Patient and family updated on results and plan. There is concern for possible TIA and patient will benefit from neurology evaluation. Case was discussed in detail with Dr. du, covering Dr. Frey, who will admit. - Lab Data Result diagrams: 08/19/21 11:35 08/19/21 11:35 Lab Results 08/19/21 08/19/21 08/19/21 Range/Units 11:28 11:35 11:35 WBC 8.7 (3.8-10.6) k/uL RBC 4.66 (4.30-5.90) m/uL Hgb 15.4 (13.0-17.5) gm/dL Hct 47.2 (39.0-53.0) % MCV 101.4 H (80.0-100.0) fL MCH 33.1 (25.0-35.0) pg MCHC 32.7 (31.0-37.0) g/dL RDW 12.4 (11.5-15.5) % Plt Count 84 L (150-450) k/uL MPV 10.3 Neutrophils % 88 % Lymphocytes % 5 % Monocytes % 4 % Eosinophils % 1 % Basophils % 0 % Neutrophils # 7.6 (1.3-7.7) k/uL Lymphocytes # 0.5 L (1.0-4.8) k/uL Monocytes # 0.4 (0-1.0) k/uL Eosinophils # 0.1 (0-0.7) k/uL Basophils # 0.0 (0-0.2) k/uL Manual Slide Review Performed RBC Morphology Normal PT 10.6 (9.0-12.0) sec INR 1.0 (<1.2) APTT 26.4 (22.0-30.0) sec Sodium (137-145) mmol/L Potassium (3.5-5.1) mmol/L Chloride (98-107) mmol/L Carbon Dioxide (22-30) mmol/L Anion Gap mmol/L BUN (9-20) mg/dL Creatinine (0.66-1.25) mg/dL Est GFR (CKD-EPI)AfAm (>60 ml/min/1.73 sqM) Est GFR (CKD-EPI)NonAf (>60 ml/min/1.73 sqM) Glucose (74-99) mg/dL POC Glucose (mg/dL) 124 H (75-99) mg/dL POC Glu Director Of Product Development Braden Calderon Calcium (8.4-10.2) mg/dL Total Bilirubin (0.2-1.3) mg/dL AST (17-59) U/L ALT (4-49) U/L Alkaline Phosphatase (38-126) U/L Troponin I (0.000-0.034) ng/mL Total Protein (6.3-8.2) g/dL Albumin (3.5-5.0) g/dL Urine Color Urine Appearance (Clear) Urine pH (5.0-8.0) Ur Specific [place] (1.001-1.035) Urine Protein (Negative) Urine Glucose (UA) (Negative) Urine Ketones (Negative) Urine Blood (Negative) Urine Nitrite (Negative) Urine Bilirubin (Negative) Urine Urobilinogen (<2.0) mg/dL Ur Leukocyte Esterase (Negative) Urine RBC (0-5) /hpf Urine WBC (0-5) /hpf 08/19/21 08/19/21 08/19/21 Range/Units 11:35 11:35 11:51 WBC (3.8-10.6) k/uL RBC (4.30-5.90) m/uL Hgb (13.0-17.5) gm/dL Hct (39.0-53.0) % MCV (80.0-100.0) fL MCH (25.0-35.0) pg MCHC (31.0-37.0) g/dL RDW (11.5-15.5) % Plt Count (150-450) k/uL MPV Neutrophils % % Lymphocytes % % Monocytes % % Eosinophils % % Basophils % % Neutrophils # (1.3-7.7) k/uL Lymphocytes # (1.0-4.8) k/uL Monocytes # (0-1.0) k/uL Eosinophils # (0-0.7) k/uL Basophils # (0-0.2) k/uL Manual Slide Review RBC Morphology PT (9.0-12.0) sec INR (<1.2) APTT (22.0-30.0) sec Sodium 138 (137-145) mmol/L Potassium 4.3 (3.5-5.1) mmol/L Chloride 103 (98-107) mmol/L Carbon Dioxide 27 (22-30) mmol/L Anion Gap 8 mmol/L BUN 21 H (9-20) mg/dL Creatinine 1.08 (0.66-1.25) mg/dL Est GFR (CKD-EPI)AfAm 73 (>60 ml/min/1.73 sqM) Est GFR (CKD-EPI)NonAf 63 (>60 ml/min/1.73 sqM) Glucose 129 H (74-99) mg/dL POC Glucose (mg/dL) (75-99) mg/dL POC Glu Director Of Product Development ID Calcium 8.9 (8.4-10.2) mg/dL Total Bilirubin 0.5 (0.2-1.3) mg/dL AST 26 (17-59) U/L ALT 11 (4-49) U/L Alkaline Phosphatase 67 (38-126) U/L Troponin I 0.038 H* (0.000-0.034) ng/mL Total Protein 6.4 (6.3-8.2) g/dL Albumin 4.0 (3.5-5.0) g/dL Urine Color Dark Brown Urine Appearance Cloudy (Clear) Urine pH 6.0 (5.0-8.0) Ur Specific [place] 1.027 (1.001-1.035) Urine Protein 3+ H (Negative) Urine Glucose (UA) Negative (Negative) Urine Ketones Negative (Negative) Urine Blood Large H (Negative) Urine Nitrite Positive (Negative) Urine Bilirubin 1+ H (Negative) Urine Urobilinogen 4.0 (<2.0) mg/dL Ur Leukocyte Esterase Trace H (Negative) Urine RBC >182 H (0-5) /hpf Urine WBC 36 H (0-5) /hpf - Radiology Data Radiology results: report reviewed (Computed tomography scan of the brain shows no acute process. Nonspecific white matter changes, likely chronic small vessel ischemic disease.), image reviewed (Test x-ray reveals no acute process.) Disposition Clinical Impression: Altered mental status Disposition: ADMITTED IP TO THIS HOSP Is patient prescribed a controlled substance at d/c from ED?: No Referrals: Kendra Frey III, MD [Primary Care Provider] - 1-2 days Decision Time: 13:37
[2021-08-19 11:34] LABS: Glucose,Whole Blood 124 mg/dL (75-99)
[2021-08-19 12:26] LABS: Partial Thromboplastin Time 26.4 sec (22.0-30.0); Prothrombin Time 10.6 sec (9.0-12.0)
[2021-08-19 12:30] LABS: Calcium 8.9 mg/dL (8.4-10.2); Potassium 4.3 mmol/L (3.5-5.1); Total Bilirubin 0.5 mg/dL (0.2-1.3); Total Protein 6.4 g/dL (6.3-8.2)
[2021-08-19 12:43] LABS: Appearance,Urine Cloudy (Clear); Bilirubin,Urine 1+ (Negative); Blood,Urine Large (Negative); Color,Urine Dark Brown; Glucose,Urine (UA) Negative (Negative); Ketones,Urine Negative (Negative); Leukocyte Esterase,Urine Trace (Negative); Nitrite,Urine Positive (Negative); Protein,Urine 3+ (Negative); RBC,Urine >182 /hpf (0-5); Specific Gravity,Urine 1.027 (1.001-1.035); WBC,Urine 36 /hpf (0-5)
[2021-08-19 12:51] LABS: Basophils % (A) 0 %; Eosinophils # (A) 0.1 k/uL (0-0.7); Eosinophils % (A) 1 %; HCT 47.2 % (39.0-53.0); HGB 15.4 gm/dL (13.0-17.5); Lymphocytes # (A) 0.5 k/uL (1.0-4.8); Lymphocytes % (A) 5 %; MCH 33.1 pg (25.0-35.0); MCHC 32.7 g/dL (31.0-37.0); MCV 101.4 fL (80.0-100.0); Mean Platelet Volume 10.3; Monocytes # (A) 0.4 k/uL (0-1.0); Monocytes % (A) 4 %; Neutrophils # (A) 7.6 k/uL (1.3-7.7); Neutrophils % (A) 88 %; RBC 4.66 m/uL (4.30-5.90); RDW 12.4 % (11.5-15.5); WBC 8.7 k/uL (3.8-10.6)
--- NOTE | 2021-08-19 12:55 | CT ---
EXAMINATION TYPE: CT brain wo con CT DLP: 1173.4 mGycm, Automated exposure control for dose reduction was used. DATE OF EXAM: 08/19/2021 12:16 PM COMPARISON: CT brain most recently 03/16/2020 CLINICAL INDICATION:Male, 81 years old with history of Altered mental status; TECHNIQUE: Brain: Multiple axial CT images of the brain were obtained without IV contrast. One or more CT dose r eduction strategies were utilized during this examination. Total DLP administered was 1173 mGycm. FINDINGS: Brain: Extra-axial spaces: No abnormal extra-axial fluid collections. Ventricular system: Dilatation in proportion to cerebral atrophy. Cerebral parenchyma: Cerebral atrophy. No acute intraparenchymal hemorrhage or mass effect. The flaherty -white junction is well differentiated. Scattered hypoattenuating areas are seen within the white mat ter. Cerebellum: Unremarkable. Mass effect: No evidence of midline shift. Intracranial vasculature: Atherosclerotic calcifications of the intracranial vessels. Soft tissues: Normal. Calvarium/osseous structures: No depressed skull fracture. Nonfused posterior arch of C1 Paranasal sinuses and mastoid air cells: Clear. Visualized orbits: Orbital contents are intact. IMPRESSION: 1. No acute intracranial process. 2. Nonspecific white matter changes, likely secondary to chronic small vessel ischemic disease.
--- NOTE | 2021-08-19 12:57 | XR ---
EXAMINATION TYPE: XR chest 2V DATE OF EXAM: 08/19/2021 12:27 PM COMPARISON:Chest radiographs from 01/27/2021 CLINICAL INDICATION:Male, 81 years old with history of altered mental status; [facility], TECHNIQUE: Frontal view of the chest. FINDINGS: Lungs/Pleura: There is no evidence of pleural effusion, focal consolidation, or pneumothorax. Pulmonary vascularity: Unremarkable. Heart/mediastinum: Cardiomediastinal silhouette is enlarged and stable. Musculoskeletal: No acute osseous pathology. Deformity of the right proximal humerus. Reverse total left shoulder arthroplasty. Right distal clavi cular chronic changes Other findings: Two lead cardiac conduction device overlying the left hemithorax with lead tips projecting over the r ight ventricle and right atrium. Midline sternotomy wires and valve replacement changes. IMPRESSION: No acute cardiopulmonary disease/process.
[2021-08-19 13:12] LABS: Platelet Count 84 k/uL (150-450)
[2021-08-19] MEDS ORDERED: ASPIRIN 325 MG TAB PO STA (13:40)
[2021-08-19] MEDS: SODIUM CHLORIDE 0.9% 1,000 ML IV SCH (15:38)
[2021-08-19] MEDS ORDERED: THIAMINE 100 MG/ML 2 ML VIAL IM STA (18:57)
[2021-08-19] MEDS ORDERED: LORazepam 2 MG/ML INJ IV PRN ×3 (18:57)
--- NOTE | 2021-08-19 19:31 | HP ---
HISTORY AND PHYSICAL DATE OF SERVICE: 08/19/2021. CHIEF COMPLAINT: Change in mental status. HISTORY OF PRESENT ILLNESS: This 81-year-old gentleman with a past medical history of multiple medical problems, including history of atrial fibrillation, history of CAD, hypertension, DJD, prostate disorder, being followed by Dr. Frey in the outpatient setting, was admitted with confusion. The patient apparently recently had surgery by Urology, probably urethral dilatation. Patient was not feeling well after that, according to the patient, and the patient apparently doubled up on the medications, probably last night, and this morning patient woke up and was feeling dizzy, but subsequently patient got confused and did not know what was going on with him, and the patient was taken to [facility] and admitted for evaluation and treatment. The confusion progressively improved. The urine showed some bloody drainage. The troponin was found to be 0.038. A CT of the brain was done as part of the stroke workup apparently which showed no acute problems, but nonspecific white matter changes also with chronic small-vessel ischemic disease. There is no history of any fever, rigors or chills at this time. PAST MEDICAL HISTORY: History of recent urethral surgery, atrial fibrillations, GERD, hypertension, DJD, history of prostate disorder, history of prostate and skin cancer. HOME MEDICATIONS: Voltaren, Keflex, Eliquis, Altace, iron, vitamin D3, Tylenol, Ultram, turmeric, Lopressor. The doses and other medications are reviewed. ALLERGIES: NONE. FAMILY HISTORY: History of prostate cancer and hiatal hernia. SOCIAL HISTORY: Previous history of smoking. Occasional alcohol intake. REVIEW OF SYSTEMS: ENT: No diminished hearing. No diminished vision. CARDIOVASCULAR SYSTEM: No angina, palpitations. RESPIRATORY SYSTEM: No cough, hemoptysis. GI: As mentioned earlier. : As mentioned earlier. NERVOUS SYSTEM: As mentioned earlier. ALLERGY/IMMUNOLOGY: No asthma or hay fever. MUSCULOSKELETAL: As mentioned earlier. HEMATOLOGY/ONCOLOGY: No history of anemia. ENDOCRINE: No history of diabetes or hypothyroidism. CONSTITUTIONAL: As mentioned earlier. DERMATOLOGY: Negative. RHEUMATOLOGY: Negative. PSYCHIATRY: As mentioned earlier. PHYSICAL EXAMINATION: Patient is alert, oriented x3. Pulse is 57, blood pressure 146/70, respirations 16, temperature 98.8, pulse ox 92% on room air. HEENT: Conjunctivae normal. Oral mucosa moist. NECK: No jugular venous distention. No carotid bruit. No lymph node enlargement. CARDIOVASCULAR: S1, S2 muffled. RESPIRATION: Breath sounds diminished at the bases. A few rhonchi. No crackles. ABDOMEN: Soft, nontender. No mass palpable. LEGS: No edema. No swelling. NERVOUS SYSTEM: Higher functions as mentioned earlier. Moves all 4 limbs. There is mild diffuse weakness present. Mild nystagmus to the left of the gaze also present. Upward gaze also impaired. Tone is normal. Minimal tremors noted. Some diffuse wasting also noted, also secondary to arthritis. SKIN: No ulcer, rash, bleeding. JOINTS: No active deforming arthropathy. LYMPHATICS: No lymph node palpable in neck, axillae or groin. LAB: Laboratory investigations at this time show WBC 8.7, MCV 101.4, sodium 138, potassium 4.3, glucose 129 and troponin 0.038. UA noted. ASSESSMENT: 1. Change in mental status and confusion for evaluation. Rule out acute transient ischemic attack. 2. Possible acute urinary tract infection. 3. History of recent urological procedure. 4. Mild thrombocytopenia. 5. History of atrial fibrillation. 6. History of gastroesophageal reflux disease. 7. Hypertension. 8. History of degenerative joint disease. 9. History of prostate and skin cancer. 10.History of pacemaker. 11.History of aortic valve replacement, bovine. 12.History of cholecystectomy. 13.History of coronary artery disease, stent. 14.History of postoperative nausea, vomiting. 15.Troponin 0.038, indeterminate. Rule out acute laa-LV-wdgnrjr-elevation myocardial infarction. 16.FULL CODE. RECOMMENDATIONS AND DISCUSSION: In this 81-year-old gentleman who presented with multiple complex medical issues, as mentioned earlier, at this time I recommend to continue the current medications. I would recommend neuro checks and complete neurovascular workup and neurology consultation. I would also recommend cardiology consultation for elevated troponin. Otherwise, we will treat the patient symptomatically. Empiric antibiotics will be given because of the possibility of acute UTI. I would recommend cultures as well. Home medications will be resumed, minus any_medications. Otherwise, we will follow the patient closely. Prognosis guarded. Discussed with the patient. A copy of this dictation is being forwarded to Dr. Frey, who is the primary physician. MIKALA / KURTN: [id number] / [facility]
--- NOTE | 2021-08-19 20:50 | P.CNNES ---
History of Present Illness Consult date: 08/19/21 Reason for Consult: mental status change History of Present Illness: The patient is a pleasant, 81-year-old male who is seen in neurologic consultation on August 19, 2021, via telemedicine. Patient presented to the emergency department because of confusion. He reportedly had a urinary procedure this past and has felt poorly since that time. He has been taking a medication prescribed by the urologist, to help with bladder spasms(Phenazopyridine). According to the patient's , the patient has not been sleeping well. She reports that he has been moaning and his sleep. The patient himself reports that the bladder spasms have been very problematic. The patient reports that upon awakening this morning he got up, and took a shower. He says he felt very "detached". His subsequently came to the kitchen and the patient reportedly asked where she had been. The patient states assessed when he realized he was confused. He said he did not know he was or what had been happening for the past few days. He says he was "in a fog". The patient's reports that he was very pale. Patient denies headache. There is no facial droop. The patient reportedly acute dialysis . He repeated questions. The patient's states that her kept saying "I don't know". Past Medical History Past Medical History: Atrial Fibrillation, Cancer, GERD/Reflux, Hypertension, Osteoarthritis (OA), Prostate Disorder, Vascular Disorder Additional Past Medical History / Comment(s): HX OF PROSTATE AND SKIN CANCER, [employer] PACEMAKER, Aortic VALVE (cow), TORN LEFT ROTATOR CUFF, DEGENERATIVE ARTHRITIS IN BACK WITH PAIN, LOW IRON AND LEG CRAMPS, R foot OA-pt wears a brace. dislocated shoulder interecostal neuroalgia History of Any Multi-Drug Resistant Organisms: None Reported Past Surgical History: Cardiac Valve Replacement, Cholecystectomy, Heart Catheterization, Heart Catheterization With Stent, Hernia Repair, Joint Replacement, Orthopedic Surgery, Pacemaker Additional Past Surgical History / Comment(s): 07/09/16 Reverse L shoulder rotator cuff repair arthroplasty. Other surgical HX: AORTIC VALVE REPLACEMENT ([facility] C[facility] BOVINE,TAVR (cow valve) ,BILATERAL GREAT TOES JT REPAIR,LEFT SHOULDER, PAIN CLINIC PROCEDURE, CATARACTS WITH LENS IMPLANTS , EMILEE INGUINAL HERNIAS, HIATAL HERNIA., [employer] PACEMAKER. STENT RCA 08/27/18 Past Anesthesia/Blood Transfusion Reactions: Postoperative Nausea & Vomiting (PONV) Additional Past Anesthesia/Blood Transfusion Reaction / Comment(s): no hx blood transfusion Date of Last Stent Placement:: 2017 Type of Cardiac Device: Permanent Pacemaker Device Placement Date:: 2010 LT CHEST Smoking Status: Never smoker - Past Family History Brother(s) Family Medical History: Cancer Additional Family Medical History / Comment(s): BROTHERS X2 PROSTATE,HIATAL HERNIA Mother Family Medical History: Congestive Heart Failure (CHF) Additional Family Medical History / Comment(s): EMPHYSEMA Father Family Medical History: Congestive Heart Failure (CHF) Additional Family Medical History / Comment(s): EMPHYSEMA Medications and Allergies Home Medications Medication Instructions Recorded Confirmed Type Metoprolol Tartrate [Lopressor] 50 mg PO BID 02/02/15 08/19/21 History Omeprazole [PriLOSEC] 20 mg PO DAILY 02/02/15 08/19/21 History Terazosin [Hytrin] 5 mg PO HS 02/02/15 08/19/21 History hydroCHLOROthiazide [Hydrodiuril] 25 mg PO DAILY 02/02/15 08/19/21 History ramipriL [Altace] 5 mg PO DAILY 02/02/15 08/19/21 History traMADol HCL [Ultram] 50 mg PO TID PRN 02/02/15 08/19/21 History Ascorbic Acid [Vitamin C] 500 mg PO DAILY 08/25/15 08/19/21 History Multivitamins, Thera [Multivitamin 1 tab PO DAILY 08/25/15 08/19/21 History (formulary)] Glucosam/Ray-Msm1/C/Kai/Bosw 1 tab PO BID 07/05/16 08/19/21 History [Glucosamine-Chondroitin Tablet] Tamsulosin HCl [Flomax] 0.4 mg PO HS 08/28/18 08/19/21 History Turmeric Root Extract [Turmeric] 500 mg PO DAILY 03/26/19 08/19/21 History Diclofenac Sodium [Voltaren] 75 mg PO DAILY 02/29/20 08/19/21 History Evolocumab [Repatha Syringe] 140 mg SQ Q14D 02/29/20 08/19/21 History Acetaminophen [Tylenol Extra 1,000 mg PO TID PRN 08/19/21 08/19/21 History Strength] Apixaban [Eliquis] 5 mg PO BID 08/19/21 08/19/21 History C,E,Zinc,Copper 11/Gclsw9j/Lut 1 cap PO DAILY 08/19/21 08/19/21 History [Ocuvite Adult 50 Plus Softgel] Cephalexin [Keflex] 500 mg PO BID 08/19/21 08/19/21 History Cholecalciferol [Vitamin D3 (25 50 mcg PO DAILY 08/19/21 08/19/21 History Mcg = 1000 Iu)] Ferrous Sulfate [Iron] 325 mg PO DAILY 08/19/21 08/19/21 History Mirabegron [Myrbetriq] 50 mg PO DAILY 08/19/21 08/19/21 History Allergies Allergy/AdvReac Type Severity Reaction Status Date / Time No Known Allergies Allergy Verified 08/19/21 12:33 Physical Examination - Vital Signs Vital Signs: Vital Signs Temp Pulse Pulse Resp BP BP Pulse Ox 08/19/21 17:27 98.8 F 57 L 16 146/70 93 L 08/19/21 14:33 67 18 155/67 95 08/19/21 12:34 82 16 167/90 98 08/19/21 11:11 97.7 F 70 16 171/96 96 Intake and Output 08/19/21 08/19/21 08/19/21 06:59 14:59 22:59 Other: Voiding Method Indwelling Catheter Weight 74.843 kg Gen.: The patient is seated on the edge of the bed. He is well-nourished, well- developed and in no acute distress. HEENT: Head is atraumatic, normocephalic. Fundus not visualized. There is no scleral icterus. Mucous membranes are moist. Neck: Supple without carotid bruits Heart: Regular rate and rhythm Extremities: Without edema Neurological examination Mental status: The patient is awake and alert. He is oriented to his name, date of , age, current year, month, holiday, location, current president and the number of years he and his have been . There is no anomia. The patient is able to repeat races accurately. He is able to accurately follow three-step commands. There is no right/left confusion. Cranial nerves: Pupils are equal at 2 mm and reactive. Visual woody are full to confrontation. Extraocular movement testing reveals limited upward gaze. Facial sensation is intact. There is no facial asymmetry. Hearing is grossly intact. Uvula and palate are midline. Shoulder shrug is symmetric. Tongue protrudes midline. Motor: Strength is 5/5 throughout. Coordination: Finger to nose and rapid alternating movements are intact. Deep tendon reflexes: 1+/4+ in the right upper and lower extremity. Left upper and lower extremity reflexes are 2+/4+. Plantar responses are flexor bilaterally. Sensation: Intact to light touch throughout. There is no extinction with double simultaneous stimulation. Results - Laboratory Findings CBC and BMP: 08/19/21 11:35 08/19/21 11:35 Abnormal Lab Findings: Abnormal Labs 08/19/21 08/19/21 08/19/21 11:28 11:35 11:35 MCV 101.4 H Plt Count 84 L Lymphocytes # 0.5 L BUN 21 H Glucose 129 H POC Glucose (mg/dL) 124 H Troponin I Urine Protein Urine Blood Urine Bilirubin Ur Leukocyte Esterase Urine RBC Urine WBC 08/19/21 08/19/21 11:35 11:51 MCV Plt Count Lymphocytes # BUN Glucose POC Glucose (mg/dL) Troponin I 0.038 H* Urine Protein 3+ H Urine Blood Large H Urine Bilirubin 1+ H Ur Leukocyte Esterase Trace H Urine RBC >182 H Urine WBC 36 H - Diagnostic Findings Comments: CT scan of the brain images are personally reviewed Assessment and Plan Assessment: 1. Mental status changes-possible seizure and postictal state versus transient global amnesia versus secondary to medication effect 2. History of atrial fibrillation 3. History of hypertension 4. History of coronary artery disease Plan: 1. EEG will be ordered 2. MRI brain with and without gadolinium 3. Stroke orders [id number] echocardiogram, lipid panel, hemoglobin A1c 4. Continue current meds at this time Thank you for allowing us to participate in the care of this very nice gentleman. Dr. Hernandez will assume neurology coverage on August 20, 2021 Time with Patient: Greater than 30 (spent 40 minutes with patient via telemedicine)
[2021-08-19] MEDS ORDERED: CEPHALEXIN 500 MG CAP PO SCH (21:00)
[2021-08-19] MEDS: APIXABAN 5 MG TAB PO SCH (21:34)
[2021-08-19] MEDS: traMADol 50 MG TAB PO PRN (21:34)
[2021-08-19] MEDS: METOPROLOL TARTRATE 50 MG TAB PO SCH (21:34)
[2021-08-19] MEDS: TAMSULOSIN 0.4 MG CAP.ER.24H PO SCH (21:35)
[2021-08-19] MEDS: ACETAMINOPHEN TAB 500 MG TAB PO PRN (21:35)
[2021-08-19] MEDS: DOXAZOSIN 4 MG TAB PO SCH (21:36)
[2021-08-20] MEDS: SODIUM CHLORIDE 0.9% 1,000 ML IV SCH ×2 (02:44→21:39)
[2021-08-20] MEDS: PANTOPRAZOLE 40 MG TABLET PO SCH (06:21)
[2021-08-20] MEDS: THIAMINE 100 MG TAB PO SCH ×2 (06:22→17:23)
[2021-08-20] MEDS: traMADol 50 MG TAB PO PRN ×3 (07:05→21:36)
[2021-08-20 07:20] LABS: Basophils % (A) 0 %; Eosinophils # (A) 0.2 k/uL (0-0.7); Eosinophils % (A) 3 %; HCT 42.5 % (39.0-53.0); HGB 13.7 gm/dL (13.0-17.5); Lymphocytes # (A) 0.8 k/uL (1.0-4.8); Lymphocytes % (A) 11 %; MCHC 32.4 g/dL (31.0-37.0); MCV 102.1 fL (80.0-100.0); Mean Platelet Volume 10.1; Monocytes # (A) 0.7 k/uL (0-1.0); Monocytes % (A) 9 %; Neutrophils # (A) 5.4 k/uL (1.3-7.7); Neutrophils % (A) 74 %; RBC 4.16 m/uL (4.30-5.90); RDW 12.5 % (11.5-15.5); WBC 7.3 k/uL (3.8-10.6)
[2021-08-20 07:32] LABS: Platelet Count 87 k/uL (150-450)
[2021-08-20 07:35] LABS: African American GFR (CKD) 76 (>60 ml/min/1.73 sqM); Anion Gap 9 mmol/L; Blood Urea Nitrogen 19 mg/dL (9-20); Calcium 8.5 mg/dL (8.4-10.2); Carbon Dioxide 25 mmol/L (22-30); Chloride 103 mmol/L (98-107); Glucose 84 mg/dL (74-99); Non-African American GFR(CKD) 66 (>60 ml/min/1.73 sqM); Potassium 4.1 mmol/L (3.5-5.1); Sodium 137 mmol/L (137-145)
[2021-08-20] MEDS ORDERED: ASPIRIN 325 MG TAB PO SCH (09:00)
[2021-08-20] MEDS: MULTIVITAMINS, THERA 1 EACH TAB PO SCH (09:20)
[2021-08-20] MEDS: lisinopriL 20 MG TAB PO SCH (09:20)
[2021-08-20] MEDS: APIXABAN 5 MG TAB PO SCH ×2 (09:20→21:36)
[2021-08-20] MEDS: FERROUS SULFATE 325 MG TAB PO SCH (09:20)
[2021-08-20] MEDS: hydroCHLOROthiazide 25 MG TAB PO SCH (09:20)
[2021-08-20] MEDS: CHOLECALCIFEROL 25 MCG (1000 IU) TABLET PO SCH (09:20)
[2021-08-20] MEDS: METOPROLOL TARTRATE 50 MG TAB PO SCH ×2 (09:20→21:34)
[2021-08-20] MEDS: ASCORBIC ACID 500 MG TAB PO SCH (09:20)
[2021-08-20] MEDS: ACETAMINOPHEN TAB 500 MG TAB PO PRN ×2 (09:21→21:37)
[2021-08-20] MEDS: Mirabegron [Myrbetriq] PO SCH (09:22)
--- NOTE | 2021-08-20 11:11 | P.CRDCN ---
History of Present Illness History of present illness: HISTORY OF PRESENTING ILLNESS This is a pleasant 81-year-old -year-old past medical history significant for paroxysmal atrial fibrillation (on Eliquis), severe aortic regurgitation s/p TAVR 06/2011, coronary artery disease status post PCI mid RCA in 2018, hypertension, dyslipidemia, sick sinus syndrome status post dual-chamber pacemaker implantation 07/2011, recent urology procedure 08/16/2021. He follows in the office with Dr. Hwang. We have been asked to see in consultation for elevated troponin. Patient presents to the emergency department with complaints of confusion. Patient states he urology procedure 08/16/2021 where they expanded his urethra. He states he has been having bladder spasms and was prescribed Phenazopyridine. He states Friday08/18/2021 at night he took an extra dose of Phenazopyridine. He woke up on Friday morning, and had some nausea and confusion, he states he felt "detached" and "barely knew his name". His called EMS and patient was brought to the ER. He denies facial droop, weakness, lightheadedness, dizziness, headache, seizure-like activity. He also denies chest pain, palpitations, shortness of breath, lower extremity edema, syncope or near-syncope. He denies symptoms of orthopnea or PND. His symptoms of confusion have resolved. One troponin was drawn with result of 0.038. DIAGNOSTICS EKG reveals sinus rhythm, HR 60, atrial paced. no significant ST-T wave abnormalities. Prior EKG with similar findings Last Cardiac Catheterization 06/2020 revealed percent mid LAD, 60% ostial 2, 50% mid RCA, 4+ aortic regurgitation. Most recent echocardiogram 01/2021 in office Revealed normal EF, mild mitral stenosis, mild to moderate mitral regurgitation, moderate tricuspid regurgitation, moderate pulmonic regurgitation, prosthetic aortic valve. The peak 56 murmurs were, anemia and 32 mmHg Telemetry tracings indicate sinus mechanism , atrial paced Chest xray no acute cardiopulmonary process Brain CT with no acute intracranial process Laboratory reviewed, WBC 7.3, hemoglobin 14.7, platelets 17, sodium 137, potassium 4.1, BUN 19, serum creatinine 1.05, troponin 0.032, covid 19 PCR negative Current home medications include Repatha, Eliquis 5mg BID, hydrochlorothiazide 25mg daily,metoprolol tartrate 50mg BID, Keflex, Ramipril, Omeprazole, Hyhtrin, REVIEW OF SYSTEMS At the time of my exam: CONSTITUTIONAL: Denies fever or chills. CARDIOVASCULAR: Denies chest pain, shortness of breath, orthopnea, PND or palpitations. RESPIRATORY: Denies cough. GASTROINTESTINAL: Denies abdominal pain, diarrhea, constipation, nausea or vomiting. MUSCULOSKELETAL: Denies myalgias. NEUROLOGIC: +confusion Denies numbness, tingling, headache or weakness. ENDOCRINE: Denies fatigue, weight change, polydipsia or polyurina. GENITOURINARY: Denies burning, hematuria or urgency with micturation. HEMATOLOGIC: Denies history of anemia or bleeding. PHYSICAL EXAMINATION Blood pressure 167/86 HR 60, afebrile, oxygen saturation is greater than 92% on room air CONSTITUTIONAL: No apparent distress. HEENT: Head is normocephalic. Pupils are equal, round. Sclerae anicteric. Mucous membranes of the mouth are moist. No JVD. No carotid bruit. CHEST EXAMINATION: Lungs are clear to auscultation. No chest wall tenderness is noted on palpation or with deep breathing. HEART EXAMINATION: Regular rate and rhythm. S1, S2 heard. gallops or rub. ABDOMEN: Soft, nontender. Positive bowel sounds. EXTREMITIES: 2+ peripheral pulses, no lower extremity edema and no calf tenderness. SKIN: warm, dry NEUROLOGIC EXAMINATION: Patient is awake, alert and oriented x3. ASSESSMENT Elevated troponin x1, mildly elevated, not consistent with acute coronary syndrome Altered mental status, resolved Paroxysmal atrial fibrillation CHADS2 4 (on Eliquis) History of severe aortic regurgitation s/p TAVR 06/2011 Coronary artery disease status post PCI mid RCA in 2018 History of hypertension Dyslipidemia Status post dual-chamber pacemaker implantation 07/2011 Recent urology procedure 08/16/2021 PLAN Repeat troponin negative Obtain 2D echocardiogram and doppler study to assess cardiac structure and function. Continue patients home Eliquis, hydrochlorothiazide, Lisinopril, metoprolol tartrate Patient to restart Repatha as an outpatient Further recommendations based on clinical course Thank you kindly for this consultation. Nurse Practitioner note has been reviewed, I agree with a documented findings and plan of care. Patient was seen and examined. Past Medical History Past Medical History: Atrial Fibrillation, Cancer, GERD/Reflux, Hypertension, Osteoarthritis (OA), Prostate Disorder, Vascular Disorder Additional Past Medical History / Comment(s): HX OF PROSTATE AND SKIN CANCER, [employer] PACEMAKER, Aortic VALVE (cow), TORN LEFT ROTATOR CUFF, DEGENERATIVE ARTHRITIS IN BACK WITH PAIN, LOW IRON AND LEG CRAMPS, R foot OA-pt wears a brace. dislocated shoulder interecostal neuroalgia History of Any Multi-Drug Resistant Organisms: None Reported Past Surgical History: Cardiac Valve Replacement, Cholecystectomy, Heart Catheterization, Heart Catheterization With Stent, Hernia Repair, Joint Replacement, Orthopedic Surgery, Pacemaker Additional Past Surgical History / Comment(s): 07/09/16 Reverse L shoulder r otator cuff repair arthroplasty. Other surgical HX: AORTIC VALVE REPLACEMENT (ST CINDY BOVINE,TAVR (cow valve) ,BILATERAL GREAT TOES JT REPAIR,LEFT SHOULDER, PAIN CLINIC PROCEDURE, CATARACTS WITH LENS IMPLANTS , EMILEE INGUINAL HERNIAS, HIATAL HERNIA., [employer] PACEMAKER. STENT RCA 08/27/18 Past Anesthesia/Blood Transfusion Reactions: Postoperative Nausea & Vomiting (PONV) Additional Past Anesthesia/Blood Transfusion Reaction / Comment(s): no hx blood transfusion Date of Last Stent Placement:: 2017 Type of Cardiac Device: Permanent Pacemaker Device Placement Date:: 2010 LT CHEST Smoking Status: Never smoker - Past Family History Brother(s) Family Medical History: Cancer Additional Family Medical History / Comment(s): BROTHERS X2 PROSTATE,HIATAL HERNIA Mother Family Medical History: Congestive Heart Failure (CHF) Additional Family Medical History / Comment(s): EMPHYSEMA Father Family Medical History: Congestive Heart Failure (CHF) Additional Family Medical History / Comment(s): EMPHYSEMA Medications and Allergies Home Medications Medication Instructions Recorded Confirmed Type Metoprolol Tartrate [Lopressor] 50 mg PO BID 02/02/15 08/19/21 History Omeprazole [PriLOSEC] 20 mg PO DAILY 02/02/15 08/19/21 History Terazosin [Hytrin] 5 mg PO HS 02/02/15 08/19/21 History hydroCHLOROthiazide [Hydrodiuril] 25 mg PO DAILY 02/02/15 08/19/21 History ramipriL [Altace] 5 mg PO DAILY 02/02/15 08/19/21 History traMADol HCL [Ultram] 50 mg PO TID PRN 02/02/15 08/19/21 History Ascorbic Acid [Vitamin C] 500 mg PO DAILY 08/25/15 08/19/21 History Multivitamins, Thera [Multivitamin 1 tab PO DAILY 08/25/15 08/19/21 History (formulary)] Glucosam/Ray-Msm1/C/Kai/Bosw 1 tab PO BID 07/05/16 08/19/21 History [Glucosamine-Chondroitin Tablet] Tamsulosin HCl [Flomax] 0.4 mg PO HS 08/28/18 08/19/21 History Turmeric Root Extract [Turmeric] 500 mg PO DAILY 03/26/19 08/19/21 History Diclofenac Sodium [Voltaren] 75 mg PO DAILY 02/29/20 08/19/21 History Evolocumab [Repatha Syringe] 140 mg SQ Q14D 02/29/20 08/19/21 History Acetaminophen [Tylenol Extra 1,000 mg PO TID PRN 08/19/21 08/19/21 History Strength] Apixaban [Eliquis] 5 mg PO BID 08/19/21 08/19/21 History C,E,Zinc,Copper 11/Dkewl6c/Lut 1 cap PO DAILY 08/19/21 08/19/21 History [Ocuvite Adult 50 Plus Softgel] Cephalexin [Keflex] 500 mg PO BID 08/19/21 08/19/21 History Cholecalciferol [Vitamin D3 (25 50 mcg PO DAILY 08/19/21 08/19/21 History Mcg = 1000 Iu)] Ferrous Sulfate [Iron] 325 mg PO DAILY 08/19/21 08/19/21 History Mirabegron [Myrbetriq] 50 mg PO DAILY 08/19/21 08/19/21 History Allergies Allergy/AdvReac Type Severity Reaction Status Date / Time No Known Allergies Allergy Verified 08/19/21 12:33 Physical Exam Vitals: Vital Signs Temp Pulse Pulse Resp BP BP Pulse Ox 08/20/21 03:38 98.5 F 60 18 167/86 94 L 08/20/21 02:00 61 18 08/20/21 00:00 98.8 F 61 18 170/102 94 L 08/19/21 20:00 98.6 F 60 17 161/73 93 L 08/19/21 17:27 98.8 F 57 L 16 146/70 93 L 08/19/21 14:33 67 18 155/67 95 08/19/21 12:34 82 16 167/90 98 08/19/21 11:11 97.7 F 70 16 171/96 96 Intake and Output 08/19/21 08/20/21 08/20/21 22:59 06:59 14:59 Output Total 300 Balance -300 Output: Urine 300 Other: Voiding Method Indwelling Catheter Indwelling Catheter # Bowel Movements 0 Weight 75 kg Results 08/20/21 04:58 08/20/21 04:58 Cardiac Enzymes 08/19/21 08/19/21 Range/Units 11:35 11:35 AST 26 (17-59) U/L Troponin I 0.038 H* (0.000-0.034) ng/mL Coagulation 08/19/21 Range/Units 11:35 PT 10.6 (9.0-12.0) sec APTT 26.4 (22.0-30.0) sec CBC 08/19/21 08/20/21 Range/Units 11:35 04:58 WBC 8.7 7.3 (3.8-10.6) k/uL RBC 4.66 4.16 L (4.30-5.90) m/uL Hgb 15.4 13.7 (13.0-17.5) gm/dL Hct 47.2 42.5 (39.0-53.0) % Plt Count 84 L 87 L (150-450) k/uL Comprehensive Metabolic Panel 08/19/21 08/20/21 Range/Units 11:35 04:58 Sodium 138 137 (137-145) mmol/L Potassium 4.3 4.1 (3.5-5.1) mmol/L Chloride 103 103 (98-107) mmol/L Carbon Dioxide 27 25 (22-30) mmol/L BUN 21 H 19 (9-20) mg/dL Creatinine 1.08 1.05 (0.66-1.25) mg/dL Glucose 129 H 84 (74-99) mg/dL Calcium 8.9 8.5 (8.4-10.2) mg/dL AST 26 (17-59) U/L ALT 11 (4-49) U/L Alkaline Phosphatase 67 (38-126) U/L Total Protein 6.4 (6.3-8.2) g/dL Albumin 4.0 (3.5-5.0) g/dL Current Medications Generic Name Dose Route Start Last Admin Trade Name Freq PRN Reason Stop Dose Admin Acetaminophen 1,000 mg 08/19/21 18:47 08/19/21 21:35 Acetaminophen Tab 500 Mg Tab PO 1,000 mg TID PRN Administration Pain Apixaban 5 mg 08/19/21 21:00 08/19/21 21:34 Apixaban 5 Mg Tab PO 5 mg BID FRANNIE Administration Protocol Ascorbic Acid 500 mg 08/20/21 09:00 Ascorbic Acid 500 Mg Tab PO DAILY FRANNIE Cholecalciferol 50 mcg 08/20/21 09:00 Cholecalciferol 25 Mcg (1000 Iu) Tablet PO DAILY FRANNIE Doxazosin Mesylate 4 mg 08/19/21 21:00 08/19/21 21:36 Doxazosin 4 Mg Tab PO 4 mg HS FRANNIE Administration Etodolac 400 mg 08/20/21 09:00 Etodolac 400 Mg Tab PO BID FRANNIE Ferrous Sulfate 325 mg 08/20/21 09:00 Ferrous Sulfate 325 Mg Tab PO DAILY FRANNIE Folic Acid 1 mg 08/20/21 12:00 Folic Acid 1 Mg Tab PO DAILY@1200 FRANNIE Hydrochlorothiazide 25 mg 08/20/21 09:00 Hydrochlorothiazide 25 Mg Tab PO DAILY FRANNIE Sodium Chloride 1,000 mls @ 50 mls/hr 08/19/21 13:45 08/20/21 02:44 Saline 0.9% IV 50 mls/hr .Q20H FRANNIE Administration Ceftriaxone Sodium 1 gm/ 50 mls @ 100 mls/hr 08/19/21 18:30 08/19/21 19:01 Sodium Chloride IVPB 100 mls/hr Q24HR FRANNIE Administration Lisinopril 20 mg 08/20/21 09:00 Lisinopril 20 Mg Tab PO DAILY FRANNIE Lorazepam 1 mg 08/19/21 18:57 Lorazepam 2 Mg/Ml Inj IV Q2HR PRN CIWA 8 or 9 Lorazepam 1 mg 08/19/21 18:57 Lorazepam 2 Mg/Ml Inj IV Q1HR PRN CIWA 10 to 15 Lorazepam 2 mg 08/19/21 18:57 Lorazepam 2 Mg/Ml Inj IV 08/21/21 18:57 Q10M PRN CIWA 16 or higher Metoprolol Tartrate 50 mg 08/19/21 21:00 08/19/21 21:34 Metoprolol Tartrate 50 Mg Tab PO 50 mg BID FRANNIE Administration Multivitamins 1 each 08/20/21 09:00 Multivitamins, Thera 1 Each Tab PO DAILY [facility] Mirabegron [ 50 mg 08/20/21 09:00 Myrbetriq] PO DAILY [facility] Pantoprazole Sodium 40 mg 08/20/21 07:30 08/20/21 06:21 Pantoprazole 40 Mg Tablet PO 40 mg [id number] FRANNIE Administration Tamsulosin HCl 0.4 mg 08/19/21 21:00 08/19/21 21:35 Tamsulosin 0.4 Mg Cap.Er.24h PO 0.4 mg HS FRANNIE Administration Thiamine HCl 100 mg 08/20/21 07:30 08/20/21 06:22 Thiamine 100 Mg Tab PO 100 mg BID-W/MEALS FRANNIE Administration Tramadol HCl 50 mg 08/19/21 18:50 08/20/21 07:05 Tramadol 50 Mg Tab PO 50 mg TID PRN Administration Pain Intake and Output 08/19/21 08/20/21 08/20/21 22:59 06:59 14:59 Output Total 300 Balance -300 Output: Urine 300 Other: Voiding Method Indwelling Catheter Indwelling Catheter # Bowel Movements 0 Weight 75 kg 08/20/21 04:58 08/20/21 04:58
--- NOTE | 2021-08-20 11:36 | ECHOF ---
Referral Reason:LV function MEASUREMENTS -------- HEIGHT: 157.5 cm WEIGHT: 74.8 kg BP: RVIDd: 2.4 cm (< 3.3) IVSd: 1.6 cm (0.6 - 1.1) LVIDd: 3.3 cm (3.9 - 5.3) LVPWd: 1.8 cm (0.6 - 1.1) IVSs: 2.6 cm LVIDs: 2.4 cm LVPWs: 1.7 cm LAESV Index (A-L): 52.54 ml/m Ao Diam: 3.5 cm (2.0 - 3.7) AV Cusp: 2.3 cm (1.5 - 2.6) LA Diam: 3.9 cm (2.7 - 3.8) MV EXCURSION: 12.148 mm (> 18.000) MV EF SLOPE: 17 mm/s (70 - 150) EPSS: 1.1 cm MV E Linus: 1.45 m/s MV DecT: 420 ms MV A Linus: 1.20 m/s MV E/A Ratio: 1.20 AV maxP.20 mmHg AV meanP.63 mmHg AR PHT: 318 ms RAP: 5.00 mmHg RVSP: 43.25 mmHg FINDINGS -------- Pacerwire seen in RV and RA. This was a technically good study. The left ventricular size is normal. There is moderate concentric left ventricular hypertrophy. O verall left ventricular systolic function is low-normal with, an EF between 50 - 55 %. Left ventric ular fillimg pressure cannot be estimated due to paced rhythm. The right ventricle is normal in size. LA is severely dilated >40 ml/m2 The right atrial size is normal. Peak/mean gradient across the Aortic Valve is 59.20mmHg / 35.63mmHg. There is mild regurgitation of the bioprosthetic aortic valve. There is moderate-severe stenosis of the bioprosthetic aortic valv e. TAVR procedure done The mitral valve is normal. The mitral valve leaflets are moderately thickened. Moderate mitral a nnular calcification present. Mild mitral regurgitation is present. The peak and mean MV gradien ts are 13.40mmHg 3.66mmHg as measured by doppler. Moderate mitral stenosis. The tricuspid valve appears structurally normal. Moderate tricuspid regurgitation present. There is moderate pulmonary hypertension. The right ventricular systolic pressure, as measured by Doppler , is 43.25mmHg. There is no pulmonic regurgitation present. The aortic root size is normal. Normal inferior vena cava with normal inspiratory collapse consistent with estimated right atrial pre ssure of 5 mmHg. There is no pericardial effusion. CONCLUSIONS -------- 1. Pacerwire seen in RV and RA. 2. The left ventricular size is normal. 3. There is moderate concentric left ventricular hypertrophy. 4. Overall left ventricular systolic function is low-normal with, an EF between 50 - 55 %. 5. Left ventricular fillimg pressure cannot be estimated due to paced rhythm. 6. LA is severely dilated >40 ml/m2 7. Peak/mean gradient across the Aortic Valve is 59.20mmHg / 35.63mmHg. 8. There is mild regurgitation of the bioprosthetic aortic valve. 9. There is moderate-severe stenosis of the bioprosthetic aortic valve. 10. The mitral valve leaflets are moderately thickened. 11. Moderate mitral annular calcification present. 12. Mild mitral regurgitation is present. 13. The peak and mean MV gradients are 13.40mmHg 3.66mmHg as measured by doppler. 14. Moderate mitral stenosis. 15. Moderate tricuspid regurgitation present. 16. There is moderate pulmonary hypertension. 17. The right ventricular systolic pressure, as measured by Doppler, is 43.25mmHg. 18. There is no pericardial effusion. OUTPATIENT CLERK: Sylvie Urban RDCS
[2021-08-20 11:42] LABS: LDL Cholesterol,Calculated 32.2 mg/dL (0.0-131.0); VLDL Calculation 19.24 mg/dL (5.00-40.00)
[2021-08-20] MEDS: ETODOLAC 400 MG TAB PO SCH ×2 (12:58→21:35)
[2021-08-20] MEDS: FOLIC ACID 1 MG TAB PO SCH (13:36)
--- NOTE | 2021-08-20 13:59 | EEG ---
ELECTROENCEPHALOGRAM REPORT DATE OF SERVICE: 08/20/2021 PREAMBLE: This is an 81-year-old male with mental status change. This study is performed to rule out any epileptiform activity. EEG FINDINGS: This is a 21-channel digital EEG recorded with video component, utilizing 10/20 international system with referential and bipolar montages. Background consists of well developed, well regulated, moderate voltage activity in 9 hertz alpha. Background is posterior-dominant and is reactive to eye opening and closing. Photic driving response was not seen. Some drowsiness was seen with appearance of bilaterally symmetric theta frequency rhythm. Stage 2 sleep was attained, with presence of some sleep spindles and generalized mixed delta and theta activity. Arousal was normal. No focal or generalized epileptiform activity was seen. EKG channel showed no arrhythmia. IMPRESSION: This is a normal EEG during wakefulness, drowsiness and some stage 2 sleep. No focal, lateralized or epileptiform activity was seen. MMMAYAL / KURTN: [id number] /
--- NOTE | 2021-08-20 15:01 | US ---
EXAMINATION TYPE: US carotid duplex BILAT DATE OF EXAM: 08/20/2021 COMPARISON: NONE CLINICAL HISTORY: Possible TGA. Episode of mental confusion x 1 hour after taking extra UTI medicatio n, per patient. EXAM MEASUREMENTS: RIGHT: Peak Systolic Velocity (PSV) cm/sec ----- Right CCA: 53.7 ----- Right ICA: 144.7 ----- Right ECA: 80.9 ICA/CCA ratio: 2.7 RIGHT: End Diastole cm/sec ----- Right CCA: 12.0 ----- Right ICA: 34.9 ----- Right ECA: 6.2 LEFT: Peak Systolic Velocity (PSV) cm/sec ----- Left CCA: 43.5 ----- Left ICA: 53.4 ----- Left ECA: 92.7 ICA/CCA ratio: 1.2 LEFT: End Diastole cm/sec ----- Left CCA: 11.7 ----- Left ICA: 18.2 ----- Left ECA: 18.0 VERTEBRALS (direction of flow): Right Vertebral: Antegrade Left Vertebral: Antegrade Rhythm: Normal Moderate, irregular, mixed wall plaques seen at bilateral carotid bifurcation with elevated PSV in ri ght carotid bulb and in right ICA proximally. Plaquing is present through the right common internal and external vessels. IMPRESSION: 1. Atheromatous plaquing present bilaterally. 2. Moderate stenosis right internal carotid artery estimated between 50 and 69% based on velocity Criteria for Assigning % of Stenosis / Diameter reduction (Estimation based on the indirect measurements of the internal carotid artery velocities (ICA PSV). 1. Normal (no stenosis)=ICA PSV < 125 cm/s: ratio < 2.0: ICA EDV<40 cm/s. 2. Less than 50% stenosis=ICA PSV < 125 cm/s: ratio < 2.0: ICA EDV<40 cm/s. 3. 50 to 69% stenosis=ICA PSV of 125 to 230 cm/s: ration 2.0 ? 4.0: ICA EDV 40-100 cm/s. 4. Greater than 70% stenosis to near occlusion= ICA PSV > 230 cm/s: ratio > 4.0: ICA EDV > 100 cm/s. 5. Near occlusion= ICA PSV velocities may be low or undetectable: variable ratio and ICA EDV. 6. Total occlusion=unable to detect flow.
--- NOTE | 2021-08-20 15:22 | P.PN ---
Subjective Progress Note Date: 08/20/21 Patient was initially seen by Dr. Carolina yesterday 08/19/2021. Please refer to her note for details. Patient presented to the ER because of confusion. Patient had a genitourinary procedure performed last and has felt poorly since then. Patient has been taking phenazopyridine as recommended by urologist for bladder spasms. Patient is not sleeping well. He has been moaning in his sleep. Patient became confused, did not know what has been happening for the past few days. He felt was in a fog. Feels uncomfortable in the bladder area, otherwise feels fine. The confusion has cleared since he came to the ER. No further confusional spells. Denies numbness tingling, any headache or any focal symptoms Telemetry monitoring showing paced rhythm in the 60s. Some PVCs. Objective - Vital Signs Vital signs: Vital Signs Temp 98.2 F 08/20/21 08:00 Pulse 60 08/20/21 08:00 Resp 18 08/20/21 08:00 BP 170/84 08/20/21 08:00 Pulse Ox 96 08/20/21 08:00 Intake & Output 08/19/21 08/20/21 08/20/21 18:59 06:59 18:59 Output Total 300 Balance -300 Weight 74.843 kg 75 kg Output: Urine 300 Other: Voiding Method Indwelling Catheter Indwelling Catheter Indwelling Catheter # Bowel Movements 0 - Exam Patient is an elderly male, very pleasant, in no acute distress. Patient is alert awake oriented to time place and person. Speech and language functions are normal. Attention, concentration and fund of knowledge is ad equate. Patient can name and repeat very well. On cranial examination, pupils are round and reacting to light, visual woody are full on confrontation, extraocular muscles are intact with no nystagmus. Face is symmetric, tongue protrudes to the midline. Palatal elevation and sensation normal, hearing and shoulder shrug normal, facial sensation normal. Shoulder shrug normal. On muscle strength testing, there is no pronator drift and the strength is normal in arms and legs distally and proximally, except shoulder abduction, which is very weak bilaterally from arthritis. Deep tendon reflexes are symmetric. Sensory to touch is equal with no neglect. Cerebellar function showed no ataxia for [id number] testing. No dysdiadochokinesia. Tone and bulk of muscles normal. Gait not checked. On general examination, there is no carotid bruit or murmur, S1-S2 audible. Abdomen is soft nontender. Chest is clear. Peripheral pulses are present. No edema. - Labs CBC & Chem 7: 08/20/21 04:58 08/20/21 04:58 Labs: Abnormal Lab Results - Last 24 Hours (Table) 08/20/21 Range/Units 04:58 RBC 4.16 L (4.30-5.90) m/uL MCV 102.1 H (80.0-100.0) fL Plt Count 87 L (150-450) k/uL Lymphocytes # 0.8 L (1.0-4.8) k/uL Microbiology - Last 24 Hours (Table) 08/19/21 11:51 Urine Culture - Final Urine,Voided Assessment and Plan Assessment: 1. Mental status changes-possible transient metabolic encephalopathy. Symptoms started after he underwent some genitourinary procedure. Possible UTI. Doubt seizure. 2. History of paroxysmal atrial fibrillation 3. History of hypertension 4. History of coronary artery disease 5. Pacemaker. 6. History of severe aortic regurgitation status post TAVR 06/2011. Plan: 1. EEG was performed today, which is normal awake, drowsy and sleep. No epileptiform activity was seen. 2. MRI brain with and without gadolinium cannot be performed because of pr esence of pacemaker. 3. Lipid panel with cholesterol 103, LDL 32, HDL 51 and triglycerides 96. Hemoglobin A1c still pending. 4. 2-D echo revealed pacer wires seen in the right ventricle and right atrium. Left ventricular size is normal. Moderate concentric LVH. EF is low normal between 50-55%. Left atrium is severely dilated. Moderate to severe stenosis of the bioprosthetic aortic valve. Mitral valve leaflets are moderately thickened. Moderate mitral stenosis. Cardiology to address these echocardiographic abnormalities, cardiology already on board. 5. Carotid Doppler was ordered, which revealed atheromatous plaquing present bilaterally. Moderate stenosis right ICA, estimated between 50 and 69% based on velocity. Consider vascular surgery consultation as an outpatient for surveillance monitoring of right ICA stenosis. At present patient is not a finch rgical candidate. 6. Continue Eliquis 5 mg twice a day 7. Patient has possible UTI, currently started on Rocephin. Cultures so far negative.
[2021-08-20] MEDS: DOXAZOSIN 4 MG TAB PO SCH (21:36)
[2021-08-20] MEDS: TAMSULOSIN 0.4 MG CAP.ER.24H PO SCH (21:36)
--- NOTE | 2021-08-20 23:35 | P.PN ---
Subjective Progress Note Date: 08/20/21 This is an 81 year old male that was recently admitted for altered mental status with confusion and is being closely monitored. Cardiology and neurology following and ongoing neuro work-up is being done. Patient underwent EEG which was normal showing no seizure like activity and MRI ordered although unable to perform given patient has pacemaker. Cardiology following and underwent 2D echo that shows moderate concentric LV hypertrophy with an ef of low-normal of 50-55% with moderate mitral stenosis, moderate tricuspid regurgitations, and moderate pulmonary hypertension. Carotid doppler done as well showing atheromatous placquing bilaterally with right ICA stenosis of 50-69%. Patient continues on IV ceftriaxone while awaiting cultures to finalize. Cultures reveal no growth to date. Patient is requesting to go home. Patient is afebrile. No chest pain reported. Labs: WBC is7.3, hemoglogin is 13.7, platelets are 87, sodium is 137, potassium is 4.1, creatinine is 1.05 Review of systems: Constitutional: No reports of fatigue, fever, or chills Cardiovascular: No reports of chest pain or palpitations Respiratory: No reports of shortness of breath or cough GI: No reports of nausea, vomiting, or diarrhea : No reports of dysuria or retention, currently indwelling charles catheter Neurovascular: no reports of generalized weakness All medications have been reviewed Active Medications Acetaminophen (Acetaminophen Tab 500 Mg Tab) 1,000 mg PO TID PRN PRN Reason: Pain Last Admin: 08/20/21 21:37 Dose: 1,000 mg Documented by: Apixaban (Apixaban 5 Mg Tab) 5 mg PO BID [facility]; Protocol Last Admin: 08/20/21 21:36 Dose: 5 mg Documented by: Ascorbic Acid (Ascorbic Acid 500 Mg Tab) 500 mg PO DAILY [facility] Last Admin: 08/20/21 09:20 Dose: 500 mg Documented by: Cholecalciferol (Cholecalciferol 25 Mcg (1000 Iu) Tablet) 50 mcg PO DAILY [facility] Last Admin: 08/20/21 09:20 Dose: 50 mcg Documented by: Doxazosin Mesylate (Doxazosin 4 Mg Tab) 4 mg PO HS [facility] Last Admin: 08/20/21 21:36 Dose: 4 mg Documented by: Etodolac (Etodolac 400 Mg Tab) 400 mg PO BID [facility] Last Admin: 08/20/21 21:35 Dose: 400 mg Documented by: Ferrous Sulfate (Ferrous Sulfate 325 Mg Tab) 325 mg PO DAILY [facility] Last Admin: 08/20/21 09:20 Dose: 325 mg Documented by: Folic Acid (Folic Acid 1 Mg Tab) 1 mg PO DAILY@1200 [facility] Last Admin: 08/20/21 13:36 Dose: 1 mg Documented by: Hydrochlorothiazide (Hydrochlorothiazide 25 Mg Tab) 25 mg PO DAILY [facility] Last Admin: 08/20/21 09:20 Dose: 25 mg Documented by: Sodium Chloride (Saline 0.9%) 1,000 mls @ 50 mls/hr IV .Q20H [facility] Last Admin: 08/20/21 21:39 Dose: Not Given Documented by: Ceftriaxone Sodium 1 gm/ (Sodium Chloride) 50 mls @ 100 mls/hr IVPB Q24HR [facility] Last Admin: 08/20/21 09:21 Dose: 100 mls/hr Documented by: Lisinopril (Lisinopril 20 Mg Tab) 20 mg PO DAILY [facility] Last Admin: 08/20/21 09:20 Dose: 20 mg Documented by: Lorazepam (Lorazepam 2 Mg/Ml Inj) 1 mg IV Q2HR PRN PRN Reason: CIWA 8 or 9 Lorazepam (Lorazepam 2 Mg/Ml Inj) 1 mg IV Q1HR PRN PRN Reason: CIWA 10 to 15 Lorazepam (Lorazepam 2 Mg/Ml Inj) 2 mg IV Q10M PRN PRN Reason: CIWA 16 or higher Stop: 08/21/21 18:57 Metoprolol Tartrate (Metoprolol Tartrate 50 Mg Tab) 50 mg PO BID [facility] Last Admin: 08/20/21 21:34 Dose: 50 mg Documented by: Multivitamins (Multivitamins, Thera 1 Each Tab) 1 each PO DAILY [facility] Last Admin: 08/20/21 09:20 Dose: 1 each Documented by: Mirabegron [ (Myrbetriq]) 50 mg PO DAILY [facility] Last Admin: 08/20/21 09:22 Dose: Not Given Documented by: Pantoprazole Sodium (Pantoprazole 40 Mg Tablet) 40 mg PO AC-BRKFST [facility] Last Admin: 08/20/21 06:21 Dose: 40 mg Documented by: Tamsulosin HCl (Tamsulosin 0.4 Mg Cap.Er.24h) 0.4 mg PO [facility] Last Admin: 08/20/21 21:36 Dose: 0.4 mg Documented by: Thiamine HCl (Thiamine 100 Mg Tab) 100 mg PO BID-W/MEALS [facility] Last Admin: 08/20/21 17:23 Dose: 100 mg Documented by: Tramadol HCl (Tramadol 50 Mg Tab) 50 mg PO TID PRN PRN Reason: Pain Last Admin: 08/20/21 21:36 Dose: 50 mg Documented by: Physical exam: Gen: This is 81-year-old male awake, alert and oriented 3, well-developed, well-nourished. Temp is 98.2F, pulse is 60, respirations are 18, blood pressure arterial is 170/84, oxygen saturation is 96% on room air HEENT: Head is atraumatic, normocephalic. Pupils equal, round. Sclerae is anicteric. NECK: Supple. No JVD. No lymphadenopathy. No thyromegaly. LUNGS: diminished breath sounds bilaterally with no wheezes or rhonchi. No intercostal retractions. HEART: S1, S2 muffled ABDOMEN: Soft. obese Bowel sounds are present. No masses. No tenderness. EXTREMITIES: No pedal edema. No calf tenderness. NEUROLOGICAL: Patient is awake, alert and oriented x3. Cranial nerves 2 through 12 are grossly intact. Assessment: change in mental status and confusion for evaluation, rule out acute transient ischemic attack possible acute urinary tract infection, present on admission History of recent urological procedure requiring indwelling charles catheter Mild thrombocytopenia History of atrial fibrillation History of gastroesophageal reflux disease Hypertension History of degenerative disc disease HIstory of prostate and skin cancer History of pacemaker History of aortic valve replacement, bovine History of cholecystectomy HIstory of coronary artery disease, stenting History of post-operative nausea and vomiting Troponin elevation 0.038, indetermininate, Ruled out NStemi per cardiology full code Plan: Recommend to continue with current medications and continued neurological work- up. Patient unable to get MRI due to pacemaker. Patient continues on IV antibiotics in the form of ceftriaxone and will continue. Urine cultures showing no growth to date. Patient requesting to go home today and will await neurology recommendations and cardiology input appreciated. Will continue with indwelling charles catheter and continue urology follow up outpatient. Due to multiple complex medical issues, prognosis is guarded. Possible discharge in 24 hours. Objective - Vital Signs Vital signs: Vital Signs Temp 97.8 F 08/20/21 16:00 Pulse 62 08/20/21 16:00 Resp 18 08/20/21 16:00 BP 160/84 08/20/21 16:00 Pulse Ox 95 08/20/21 16:00 Intake & Output 08/20/21 08/20/21 08/21/21 06:59 18:59 06:59 Intake Total 180 Output Total 300 2500 Balance -300 -2320 Weight 75 kg Intake: Oral 180 Output: Urine 300 2500 Other: Voiding Method Indwelling Catheter Indwelling Catheter # Bowel Movements 0 - Labs CBC & Chem 7: 08/20/21 04:58 08/20/21 04:58 Labs: Abnormal Lab Results - Last 24 Hours (Table) 08/20/21 Range/Units 04:58 RBC 4.16 L (4.30-5.90) m/uL MCV 102.1 H (80.0-100.0) fL Plt Count 87 L (150-450) k/uL Lymphocytes # 0.8 L (1.0-4.8) k/uL Microbiology - Last 24 Hours (Table) 08/19/21 19:03 Blood Culture - Preliminary Blood No Growth after 24 hours 08/19/21 11:51 Urine Culture - Final Urine,Voided
[2021-08-21] MEDS: PANTOPRAZOLE 40 MG TABLET PO SCH (06:47)
[2021-08-21] MEDS: THIAMINE 100 MG TAB PO SCH (06:47)
[2021-08-21 08:46] VITALS: BP 134/79; PULSE 60; RESP 16; TEMP 98.3
[2021-08-21] MEDS: ETODOLAC 400 MG TAB PO SCH (08:46)
[2021-08-21] MEDS: MULTIVITAMINS, THERA 1 EACH TAB PO SCH (08:48)
[2021-08-21] MEDS: FERROUS SULFATE 325 MG TAB PO SCH (08:48)
[2021-08-21] MEDS: METOPROLOL TARTRATE 50 MG TAB PO SCH (08:48)
[2021-08-21] MEDS: APIXABAN 5 MG TAB PO SCH (08:48)
[2021-08-21] MEDS: Mirabegron [Myrbetriq] PO SCH (08:48)
[2021-08-21] MEDS: CHOLECALCIFEROL 25 MCG (1000 IU) TABLET PO SCH (08:48)
[2021-08-21] MEDS: lisinopriL 20 MG TAB PO SCH (08:48)
[2021-08-21] MEDS: hydroCHLOROthiazide 25 MG TAB PO SCH (08:48)
[2021-08-21] MEDS: ASCORBIC ACID 500 MG TAB PO SCH (08:48)
--- NOTE | 2021-08-21 09:11 | P.GSCN ---
History of Present Illness Reason for Consult: altered mental status, Urethral stricture History of present illness: this is an 81-year-old male with history of bulbar urethral stricture, and narrowing along the prostate. He underwent cystoscopy and urethral dilation on August 16. Postoperatively he's been having significant bladder spasms, was subsequently placed on Detrol and Pyridium for his spasms. He presented to the hospital on 08/19, with confusion. neurology, cardiology has been consulted for evaluation. He indicated his spasms have improved this morning, he is back to his usual state. Catheter is draining clear yellow urine, I reviewed his UA, consistent with recent procedure, urine culture is negative. denies any dysuria or gross hematuria. Review of Systems - Constitutional Denies fever, Denies weight loss - Cardiovascular Denies chest pain, Denies shortness of breath - Respiratory Denies cough, Denies 7 - Gastrointestinal Reports as per HPI - Genitourinary Denies dysuria, Denies flank pain, Denies hematuria - Integumentary Denies rash, Denies unusual bruising - Neurological Denies headaches, Denies syncope Past Medical History Past Medical History: Atrial Fibrillation, Cancer, GERD/Reflux, Hypertension, Osteoarthritis (OA), Prostate Disorder, Vascular Disorder Additional Past Medical History / Comment(s): HX OF PROSTATE AND SKIN CANCER, [employer] PACEMAKER, Aortic VALVE (cow), TORN LEFT ROTATOR CUFF, DEGENERATIVE ARTHRITIS IN BACK WITH PAIN, LOW IRON AND LEG CRAMPS, R foot OA-pt wears a brace. dislocated shoulder interecostal neuroalgia History of Any Multi-Drug Resistant Organisms: None Reported Past Surgical History: Cardiac Valve Replacement, Cholecystectomy, Heart Catheterization, Heart Catheterization With Stent, Hernia Repair, Joint Repla cement, Orthopedic Surgery, Pacemaker Additional Past Surgical History / Comment(s): 07/09/16 Reverse L shoulder rotator cuff repair arthroplasty. Other surgical HX: AORTIC VALVE REPLACEMENT ([facility],TAVR (cow valve) ,BILATERAL GREAT TOES JT REPAIR,LEFT SHOULDER, PAIN CLINIC PROCEDURE, CATARACTS WITH LENS IMPLANTS , EMILEE INGUINAL HERNIAS, HIATAL HERNIA., [employer] PACEMAKER. STENT RCA 08/27/18 Past Anesthesia/Blood Transfusion Reactions: Postoperative Nausea & Vomiting (PONV) Additional Past Anesthesia/Blood Transfusion Reaction / Comm: no hx blood transfusion Date of Last Stent Placement:: 2017 Type of Cardiac Device: Permanent Pacemaker Device Placement Date:: 2010 LT CHEST Smoking Status: Never smoker - Past Family History Brother(s) Family Medical History: Cancer Additional Family Medical History / Comment(s): BROTHERS X2 PROSTATE,HIATAL HERNIA Mother Family Medical History: Congestive Heart Failure (CHF) Additional Family Medical History / Comment(s): EMPHYSEMA Father Family Medical History: Congestive Heart Failure (CHF) Additional Family Medical History / Comment(s): EMPHYSEMA Medications and Allergies Home Medications Medication Instructions Recorded Confirmed Type Metoprolol Tartrate [Lopressor] 50 mg PO BID 02/02/15 08/19/21 History Omeprazole [PriLOSEC] 20 mg PO DAILY 02/02/15 08/19/21 History Terazosin [Hytrin] 5 mg PO HS 02/02/15 08/19/21 History hydroCHLOROthiazide [Hydrodiuril] 25 mg PO DAILY 02/02/15 08/19/21 History ramipriL [Altace] 5 mg PO DAILY 02/02/15 08/19/21 History traMADol HCL [Ultram] 50 mg PO TID PRN 02/02/15 08/19/21 History Ascorbic Acid [Vitamin C] 500 mg PO DAILY 08/25/15 08/19/21 History Multivitamins, Thera [Multivitamin 1 tab PO DAILY 08/25/15 08/19/21 History (formulary)] Glucosam/Ray-Msm1/C/Kai/Bosw 1 tab PO BID 07/05/16 08/19/21 History [Glucosamine-Chondroitin Tablet] Tamsulosin HCl [Flomax] 0.4 mg PO HS 08/28/18 08/19/21 History Turmeric Root Extract [Turmeric] 500 mg PO DAILY 03/26/19 08/19/21 History Diclofenac Sodium [Voltaren] 75 mg PO DAILY 02/29/20 08/19/21 History Evolocumab [Repatha Syringe] 140 mg SQ Q14D 02/29/20 08/19/21 History Acetaminophen [Tylenol Extra 1,000 mg PO TID PRN 08/19/21 08/19/21 History Strength] Apixaban [Eliquis] 5 mg PO BID 08/19/21 08/19/21 History C,E,Zinc,Copper 11/Jbvip6k/Lut 1 cap PO DAILY 08/19/21 08/19/21 History [Ocuvite Adult 50 Plus Softgel] Cephalexin [Keflex] 500 mg PO BID 08/19/21 08/19/21 History Cholecalciferol [Vitamin D3 (25 50 mcg PO DAILY 08/19/21 08/19/21 History Mcg = 1000 Iu)] Ferrous Sulfate [Iron] 325 mg PO DAILY 08/19/21 08/19/21 History Mirabegron [Myrbetriq] 50 mg PO DAILY 08/19/21 08/19/21 History Evolocumab [Repatha Syringe] 140 mg SQ 08/20/21 History Allergies Allergy/AdvReac Type Severity Reaction Status Date / Time No Known Allergies Allergy Verified 08/19/21 12:33 Surgical - Exam Vital Signs Temp Pulse Resp BP Pulse Ox 97.7 F 70 16 171/96 96 08/19/21 11:11 08/19/21 11:11 08/19/21 11:11 08/19/21 11:11 08/19/21 11:11 - General no distress, no pain - Eyes PERRL, normal ocular movement - ENT normal nares, normal mucosa - Respiratory normal expansion, normal respiratory effort - Abdomen Abdomen: soft, non tender - Psychiatric oriented to time, oriented to person, oriented to place Results - Labs 08/20/21 04:58 08/20/21 04:58 Microbiology - Last 24 Hours (Table) 08/19/21 19:03 Blood Culture - Preliminary Blood No Growth after 24 hours 08/19/21 11:51 Urine Culture - Final Urine,Voided Diabetes panel 08/20/21 Range/Units 04:58 Triglycerides 96.20 (0.00-149.00) mg/dL HDL Cholesterol 51.60 (40.00-60.00) mg/dL Assessment and Plan Assessment: 81-year-old male underwent recent urethral dilation August 16. He's admitted to the hospital with confusion. Urine culture is negative. -Advised to discontinue the Detrol at home, this could be contributing to his confusion -Keep charles until , he is okay for discharge from urology standpoint, patient will remove his Charles on , will place on 3 days of antibiotics given recent procedure and plan of removing the charles in 48 hours.
--- NOTE | 2021-08-21 11:47 | P.PN ---
Subjective Progress Note Date: 08/21/21 08/21/2021: Patient is feeling well. Offers no complaints. Denies any headache or any numbness tingling or weakness. 08/20/2021: Patient was initially seen by Dr. Carolina yesterday 08/19/2021. Please refer to her note for details. Patient presented to the ER because of confusion. Patient had a genitourinary procedure performed last and has felt poorly since then. Patient has been taking phenazopyridine as recommended by urologist for bladder spasms. Patient is not sleeping well. He has been moaning in his sleep. Patient became confused, did not know what has been happening for the past few days. He felt was in a fog. Feels uncomfortable in the bladder area, otherwise feels fine. The confusion has cleared since he came to the ER. No further confusional spells. Denies numbness tingling, any headache or any focal symptoms Telemetry monitoring showing paced rhythm in the 60s. Some PVCs. Objective - Vital Signs Vital signs: Vital Signs Temp 98.3 F 08/21/21 08:00 Pulse 60 08/21/21 08:00 Resp 16 08/21/21 08:00 BP 134/79 08/21/21 08:00 Pulse Ox 93 L 08/21/21 08:00 Intake & Output 08/20/21 08/21/21 08/21/21 18:59 06:59 18:59 Intake Total 180 240 Output Total 2500 700 Balance -2320 -700 240 Weight 78.5 kg Intake: Oral 180 240 Output: Urine 2500 700 Other: Voiding Method Indwelling Catheter Indwelling Catheter Indwelling Catheter - Exam Patient is an elderly male, very pleasant, in no acute distress. Patient is alert awake oriented to time place and person. Speech and language functions are normal. Attention, concentration and fund of knowledge is adequate. Patient can name and repeat very well. On cranial examination, pupils are round and reacting to light, visual woody a re full on confrontation, extraocular muscles are intact with no nystagmus. Face is symmetric, tongue protrudes to the midline. Palatal elevation and sensation normal, hearing and shoulder shrug normal, facial sensation normal. Shoulder shrug normal. On muscle strength testing, there is no pronator drift and the strength is normal in arms and legs distally and proximally, except shoulder abduction, which is very weak bilaterally from arthritis. Deep tendon reflexes are symmetric. Sensory to touch is equal with no neglect. Cerebellar function showed no ataxia for [id number] testing. No dysdiadochokinesia. Tone and bulk of muscles normal. Gait not checked. He has been walking stable although not much. On general examination, there is no carotid bruit or murmur, S1-S2 audible. Abdomen is soft nontender. Chest is clear. Peripheral pulses are present. No edema. - Labs CBC & Chem 7: 08/20/21 04:58 08/20/21 04:58 Labs: Microbiology - Last 24 Hours (Table) 08/19/21 19:03 Blood Culture - Preliminary Blood No Growth after 24 hours 08/19/21 11:51 Urine Culture - Final Urine,Voided Assessment and Plan Assessment: 1. Mental status changes-possible transient metabolic encephalopathy. Symptoms started after he underwent some genitourinary procedure. Possible UTI. Doubt seizure. 2. History of paroxysmal atrial fibrillation 3. History of hypertension 4. History of coronary artery disease 5. Pacemaker. 6. History of severe aortic regurgitation status post TAVR 06/2011. Plan: 1. EEG was performed today, which is normal awake, drowsy and sleep. No epileptiform activity was seen. 2. MRI brain with and without gadolinium cannot be performed because of presence of pacemaker. 3. Lipid panel with cholesterol 103, LDL 32, HDL 51 and triglycerides 96. Hemoglobin A1c still pending. 4. 2-D echo revealed pacer wires seen in the right ventricle and right atrium. Left ventricular size is normal. Moderate concentric LVH. EF is low normal between 50-55%. Left atrium is severely dilated. Moderate to severe stenosis of the bioprosthetic aortic valve. Mitral valve leaflets are moderately thickened. Moderate mitral stenosis. Cardiology to address these echocardiographic abnormalities, cardiology already on board. 5. Carotid Doppler was ordered, which revealed atheromatous plaquing present bilaterally. Moderate stenosis right ICA, estimated between 50 and 69% based on velocity. Consider vascular surgery consultation as an outpatient for surveillance monitoring of right ICA stenosis. At present patient is not a surgical candidate. 6. Continue Eliquis 5 mg twice a day 7. Patient has possible UTI, currently started on Rocephin. Cultures so far negative. 8. Neurologically clear for discharge.
--- NOTE | 2021-08-21 12:05 | P.PN ---
Subjective This is a pleasant 81-year-old -year-old past medical history significant for paroxysmal atrial fibrillation (on Eliquis), severe aortic regurgitation s/p TAVR 06/2011, coronary artery disease status post PCI mid RCA in 2018, hypertension, dyslipidemia, sick sinus syndrome status post dual-chamber pacemaker implantation 07/2011, recent urology procedure 08/16/2021. He follows in the office with Dr. Hwang. We have been asked to see in consultation for elevated troponin. Patient presents to the emergency department with complaints of confusion. Patient states he urology procedure 08/16/2021 where they expanded his urethra. He states he has been having bladder spasms and was prescribed Phenazopyridine. He states Friday08/18/2021 at night he took an extra dose of Phenazopyridine. He woke up on Friday morning, and had some nausea and confu osito, he states he felt "detached" and "barely knew his name". His called EMS. His symptoms have completely resolved. One troponin was drawn with result of 0.038, repeat troponin negativeHe denies any chest pain, shortness of breath. Echo revealed EF of 5055 percent, peak/mean gradient across aortic valve 59 mmHg/35 mmHg, mild regurgitation and moderate to severe stenosis of aortic valve, mild mitral regurgitation, moderate mitral stenosis, moderate tricuspid regurgitation, moderate pulmonary hypertension with an RVSP of 43 mmHg PHYSICAL EXAMINATION Blood pressure 134/79 HR 60, afebrile 93% on room air CONSTITUTIONAL: No apparent distress. HEENT: Neck Supple. No JVD. CHEST EXAMINATION: Lungs are clear to auscultation. HEART EXAMINATION: Regular rate and rhythm. S1, S2 heard. gallops or rub. ABDOMEN: Soft, nontender. Positive bowel sounds. EXTREMITIES: 2+ peripheral pulses, no lower extremity edema and no calf tenderness. NEUROLOGIC EXAMINATION: Patient is awake, alert and oriented x3. 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 Hwang next week, patient has an appointment on 08/28/2021 at 3:00PM. Nurse Practitioner note has been reviewed, I agree with a documented findings and plan of care. Patient was seen and examined. Objective - Vital Signs Vital signs: Vital Signs Temp 98.3 F 08/21/21 08:00 Pulse 60 08/21/21 08:00 Resp 16 08/21/21 08:00 BP 134/79 08/21/21 08:00 Pulse Ox 93 L 08/21/21 08:00 Intake & Output 08/20/21 08/21/21 08/21/21 18:59 06:59 18:59 Intake Total 180 240 Output Total 2500 700 Balance -2320 -700 240 Weight 78.5 kg Intake: Oral 180 240 Output: Urine 2500 700 Other: Voiding Method Indwelling Catheter Indwelling Catheter Indwelling Catheter - Labs CBC & Chem 7: 08/20/21 04:58 08/20/21 04:58 Labs: Microbiology - Last 24 Hours (Table) 08/19/21 19:03 Blood Culture - Preliminary Blood No Growth after 24 hours 08/19/21 11:51 Urine Culture - Final Urine,Voided
[2021-08-21] MEDS: FOLIC ACID 1 MG TAB PO SCH (13:54)
--- NOTE | 2021-08-23 09:37 | P.DS ---
Providers Date of admission: 08/19/21 13:38 Expected date of discharge: 08/21/21 Attending physician: Ray Raines MD Consults: 08/19/21 13:40 Consult Physician Urgent Consulting Provider: Liane Carolina Consult Reason/Comments: ams, eval for tia Do you want consulting provider notified?: Yes 08/19/21 18:21 Consult Physician Routine Consulting Provider: Josh Du Consult Reason/Comments: elevated troponin Do you want consulting provider notified?: Yes 08/20/21 12:53 Consult Physician Routine Consulting Provider: Edi Oscar Consult Reason/Comments: recent urology procedure, bladder spasms, uti Do you want consulting provider notified?: Yes Primary care physician: Kendra Frey Hospital Course: Final diagnosis change in mental status and confusion for evaluation, ruled out acute transient ischemic attack possible acute urinary tract infection, present on admission History of recent urological procedure requiring indwelling charles catheter Mild thrombocytopenia History of atrial fibrillation History of gastroesophageal reflux disease Hypertension History of degenerative disc disease HIstory of prostate and skin cancer History of pacemaker History of aortic valve replacement, bovine History of cholecystectomy HIstory of coronary artery disease, stenting History of post-operative nausea and vomiting Troponin elevation 0.038, indetermininate, Ruled out NStemi per cardiology full code Discharge disposition Patient is being discharged in a stable condition with guarded prognosis to home. Patient will follow-up with Dr. Frey upon discharge. Patient is also instructed to follow-up with vascular surgery, urology, cardiology as discussed and scheduled. Patient will continue on oral antibiotics in the form of Keflex 500 mg twice daily for the next 3 days to complete the course.. Total time taken is greater than 35 minutes. Hospital course This is a pleasant 81-year-old male who was admitted for altered mental status and confusion and was being closely monitored. She was evaluated by cardiology along with neurology and neurological workup including EEG was negative. An MRI was ordered although patient has a pacemaker and unable to receive MRI. Patient encouraged to follow up with neurology in the outpatient setting per neurology recommendations. Patient also continues with indwelling Charles catheter due to recent urological procedure and will follow-up with Dr. Oscar in the outpatient setting. Patient will continue on oral antibiotics in the form of Keflex twice daily for the next 3 days to complete the course. Urine culture finalized showing no growth. Patient is adamant about going home today and requesting when he can be discharged. Currently no reports of chest pain, shortness of breath, or palpitations. Patient is afebrile. No reports of nausea or vomiting and patient is tolerating diet. Patient will be discharged home today. Guarded prognosis. On exam vital signs are stable. Cardio S1, S2 are muffled. Respiratory shows diminished breath sounds at the bases with no wheezing or rhonchi noted. Abdomen is soft and nontender. Nervous system shows no focal deficits. Please refer to medication reconciliation sheet for a list of medications. Patient Condition at Discharge: Stable Plan - Discharge Summary New Discharge Prescriptions: New Cephalexin [Keflex] 500 mg PO Q12HR #6 cap Folic Acid 1 mg PO DAILY@1200 30 Days #30 tab Thiamine [Vitamin B-1] 100 mg PO BID-W/MEALS 30 Days #60 tab Continue traMADol HCL [Ultram] 50 mg PO TID PRN PRN Reason: Pain hydroCHLOROthiazide [Hydrodiuril] 25 mg PO DAILY Terazosin [Hytrin] 5 mg PO HS Omeprazole [PriLOSEC] 20 mg PO DAILY Metoprolol Tartrate [Lopressor] 50 mg PO BID ramipriL [Altace] 5 mg PO DAILY Multivitamins, Thera [Multivitamin (formulary)] 1 tab PO DAILY Ascorbic Acid [Vitamin C] 500 mg PO DAILY Glucosam/Ray-Msm1/C/Kai/Bosw [Glucosamine-Chondroitin Tablet] 1 tab PO BID Tamsulosin HCl [Flomax] 0.4 mg PO HS Turmeric Root Extract [Turmeric] 500 mg PO DAILY Diclofenac Sodium [Voltaren] 75 mg PO DAILY Evolocumab [Repatha Syringe] 140 mg SQ Q14D Apixaban [Eliquis] 5 mg PO BID Ferrous Sulfate [Iron] 325 mg PO DAILY Cholecalciferol [Vitamin D3 (25 Mcg = 1000 Iu)] 50 mcg PO DAILY Acetaminophen [Tylenol Extra Strength] 1,000 mg PO TID PRN PRN Reason: Pain Evolocumab [Repatha Syringe] 140 mg SQ C,E,Zinc,Copper 11/Tsrrf8k/Lut [Ocuvite Adult 50 Plus Softgel] 1 cap PO DAILY Mirabegron [Myrbetriq] 50 mg PO DAILY Discontinued Cephalexin [Keflex] 500 mg PO BID Discharge Medication List Metoprolol Tartrate [Lopressor] 50 mg PO BID 02/02/15 [History] Omeprazole [PriLOSEC] 20 mg PO DAILY 02/02/15 [History] Terazosin [Hytrin] 5 mg PO HS 02/02/15 [History] hydroCHLOROthiazide [Hydrodiuril] 25 mg PO DAILY 02/02/15 [History] ramipriL [Altace] 5 mg PO DAILY 02/02/15 [History] traMADol HCL [Ultram] 50 mg PO TID PRN 02/02/15 [History] Ascorbic Acid [Vitamin C] 500 mg PO DAILY 08/25/15 [History] Multivitamins, Thera [Multivitamin (formulary)] 1 tab PO DAILY 08/25/15 [History] Glucosam/Ray-Msm1/C/Kai/Bosw [Glucosamine-Chondroitin Tablet] 1 tab PO BID 07/05/16 [History] Tamsulosin HCl [Flomax] 0.4 mg PO HS 08/28/18 [History] Turmeric Root Extract [Turmeric] 500 mg PO DAILY 03/26/19 [History] Diclofenac Sodium [Voltaren] 75 mg PO DAILY 02/29/20 [History] Evolocumab [Repatha Syringe] 140 mg SQ Q14D 02/29/20 [History] Acetaminophen [Tylenol Extra Strength] 1,000 mg PO TID PRN 08/19/21 [History] Apixaban [Eliquis] 5 mg PO BID 08/19/21 [History] C,E,Zinc,Copper 11/Tfobb3s/Lut [Ocuvite Adult 50 Plus Softgel] 1 cap PO DAILY 08/19/21 [History] Cholecalciferol [Vitamin D3 (25 Mcg = 1000 Iu)] 50 mcg PO DAILY 08/19/21 [History] Ferrous Sulfate [Iron] 325 mg PO DAILY 08/19/21 [History] Mirabegron [Myrbetriq] 50 mg PO DAILY 08/19/21 [History] Evolocumab [Repatha Syringe] 140 mg SQ 08/20/21 [History] Cephalexin [Keflex] 500 mg PO Q12HR #6 cap 08/21/21 [Rx] Folic Acid 1 mg PO DAILY@1200 30 Days #30 tab 08/21/21 [Rx] Thiamine [Vitamin B-1] 100 mg PO BID-W/MEALS 30 Days #60 tab 08/21/21 [Rx] Follow up Appointment(s)/Referral(s): Chica Hwang MD [STAFF PHYSICIAN] - 08/28/21 3:00 pm Kendra Fery III, MD [Primary Care Provider] - 1-2 days Edi Oscar MD [STAFF PHYSICIAN] - 08/24/21 10:20 am () Stefania Charles DO [STAFF PHYSICIAN] - 09/05/21 11:00 am Patient Instructions/Handouts: Charles Catheter Placement and Care (DC), Altered Mental Status (GEN) Activity/Diet/Wound Care/Special Instructions: you can remove your catheter morning Activity Limited until follow-up Follow-up with primary care provider on discharge Follow-up cardiology outpatient Follow-up urology as discussed and scheduled Continue taking medications as prescribed Continue with antibiotics until finished Follow-up outpatient vascular surgery regarding carotid Doppler Discharge Disposition: HOME SELF-CARE
== END 2021-08-21 15:43 | disposition home or self-care (01) ==
LOC: EC 11:09 → 3SCARD 13:38
PROVIDERS: ADMIT Internal Medicine; ATTEND Internal Medicine
DX: R41.0 Disorientation, unspecified (principal); D69.6 Thrombocytopenia, unspecified; I48.0 Paroxysmal atrial fibrillation; K21.9 Gastro-esophageal reflux disease without esophagitis; I25.10 Atherosclerotic heart disease of native coronary artery without angina pectoris; R77.8 Other specified abnormalities of plasma proteins; M47.9 Spondylosis, unspecified; N42.9 Disorder of prostate, unspecified; R11.0 Nausea; M19.071 Primary osteoarthritis, right ankle and foot; I27.20 Pulmonary hypertension, unspecified; N32.89 Other specified disorders of bladder; I49.3 Ventricular premature depolarization; I65.21 Occlusion and stenosis of right carotid artery; E78.5 Hyperlipidemia, unspecified; I11.9 Hypertensive heart disease without heart failure; I37.1 Nonrheumatic pulmonary valve insufficiency; I49.5 Sick sinus syndrome; E66.9 Obesity, unspecified; Z68.31 Body mass index [BMI] 31.0-31.9, adult; Z20.822 Contact with and (suspected) exposure to COVID-19; Z85.46 Personal history of malignant neoplasm of prostate; Z87.891 Personal history of nicotine dependence; Z85.828 Personal history of other malignant neoplasm of skin; Z95.0 Presence of cardiac pacemaker; Z96.0 Presence of urogenital implants; Z95.2 Presence of prosthetic heart valve; Z90.49 Acquired absence of other specified parts of digestive tract; Z95.5 Presence of coronary angioplasty implant and graft; Z98.890 Other specified postprocedural states; Z79.899 Other long term (current) drug therapy; Z79.01 Long term (current) use of anticoagulants; Z96.1 Presence of intraocular lens; Z71.9 Counseling, unspecified; Z80.42 Family history of malignant neoplasm of prostate; Z82.49 Family history of ischemic heart disease and other diseases of the circulatory system; Z82.5 Family history of asthma and other chronic lower respiratory diseases
CPT/HCPCS: 96365; 96366 ×2; 99285; 36415; 95816; 93005; 93306; 97116; 97162; 97535; 97166; 92523; 80061; 80053; 80048; 84484 ×2; 85025 ×2; 85610; 85730; 81001; 87040; 87086; 87635; 71046; 93880; 70450; G0378 ×3; J0696 ×3

== ENCOUNTER 2021-09-10 12:29 | Emergency (ER) | payer MEDICARE ==
[2021-09-10] MEDS ORDERED: BAMLANIVIMAB (EUA) 700 MG, ETESEVIMAB (EUA) 1,400 MG in SODIUM CHLORIDE 0.9% 100 ML IVPB ONE (17:15)
[2021-09-10] MEDS ORDERED: SODIUM CHLORIDE 0.9% 50 ML IVPB ONE (17:15)
[2021-09-10 17:51] VITALS: BP 161/90; PULSE 60; RESP 18; TEMP 98.1
--- NOTE | 2021-09-10 18:32 | ED ---
General Adult HPI - General Chief complaint: Headache Stated complaint: congestion, covid exposure Time Seen by Provider: 09/10/21 16:38 Source: patient Mode of arrival: ambulatory Limitations: no limitations - History of Present Illness Initial comments: 81 year-old male patient presents to the emergency department for evaluation of sore throat and nasal congestion for the last two days. States that his tested positive for COVID a few days prior to onset of his symptoms. He has been vaccinated and received the booster. Patient denies any recent rash, shortness of breath, chest pain, abdominal pain, nausea, vomiting, diarrhea, constipation, back pain, numbness, tingling, dizziness, weakness, hematuria, dysuria, urinary urgency, urinary frequency, headache, visual changes, or any other complaints. - Related Data Home Medications Medication Instructions Recorded Confirmed Metoprolol Tartrate [Lopressor] 50 mg PO BID 02/02/15 08/19/21 Omeprazole [PriLOSEC] 20 mg PO DAILY 02/02/15 08/19/21 Terazosin [Hytrin] 5 mg PO HS 02/02/15 08/19/21 hydroCHLOROthiazide [Hydrodiuril] 25 mg PO DAILY 02/02/15 08/19/21 ramipriL [Altace] 5 mg PO DAILY 02/02/15 08/19/21 traMADol HCL [Ultram] 50 mg PO TID PRN 02/02/15 08/19/21 Ascorbic Acid [Vitamin C] 500 mg PO DAILY 08/25/15 08/19/21 Multivitamins, Thera [Multivitamin 1 tab PO DAILY 08/25/15 08/19/21 (formulary)] Glucosam/Ray-Msm1/C/Kai/Bosw 1 tab PO BID 07/05/16 08/19/21 [Glucosamine-Chondroitin Tablet] Tamsulosin HCl [Flomax] 0.4 mg PO HS 08/28/18 08/19/21 Turmeric Root Extract [Turmeric] 500 mg PO DAILY 03/26/19 08/19/21 Diclofenac Sodium [Voltaren] 75 mg PO DAILY 02/29/20 08/19/21 Evolocumab [Repatha Syringe] 140 mg SQ Q14D 02/29/20 08/19/21 Acetaminophen [Tylenol Extra 1,000 mg PO TID PRN 08/19/21 08/19/21 Strength] Apixaban [Eliquis] 5 mg PO BID 08/19/21 08/19/21 C,E,Zinc,Copper 11/Rfqem5l/Lut 1 cap PO DAILY 08/19/21 08/19/21 [Ocuvite Adult 50 Plus Softgel] Cholecalciferol [Vitamin D3 (25 50 mcg PO DAILY 08/19/21 08/19/21 Mcg = 1000 Iu)] Ferrous Sulfate [Iron] 325 mg PO DAILY 08/19/21 08/19/21 Mirabegron [Myrbetriq] 50 mg PO DAILY 08/19/21 08/19/21 Evolocumab [Repatha Syringe] 140 mg SQ 08/20/21 Previous Rx's Medication Instructions Recorded Cephalexin [Keflex] 500 mg PO Q12HR #6 cap 08/21/21 Folic Acid 1 mg PO DAILY@1200 30 Days #30 tab 08/21/21 Thiamine [Vitamin B-1] 100 mg PO BID-W/MEALS 30 Days #60 08/21/21 tab Allergies Allergy/AdvReac Type Severity Reaction Status Date / Time No Known Allergies Allergy Verified 09/10/21 15:25 Review of Systems ROS Statement: Those systems with pertinent positive or pertinent negative responses have been documented in the HPI. ROS Other: All systems not noted in ROS Statement are negative. Past Medical History Past Medical History: Atrial Fibrillation, Cancer, GERD/Reflux, Hypertension, Osteoarthritis (OA), Prostate Disorder, Vascular Disorder Additional Past Medical History / Comment(s): HX OF PROSTATE AND SKIN CANCER, [employer] PACEMAKER, Aortic VALVE (cow), TORN LEFT ROTATOR CUFF, DEGENERATIVE ARTHRITIS IN BACK WITH PAIN, LOW IRON AND LEG CRAMPS, R foot OA-pt wears a brace. dislocated shoulder interecostal neuroalgia History of Any Multi-Drug Resistant Organisms: None Reported Past Surgical History: Cardiac Valve Replacement, Cholecystectomy, Heart Catheterization, Heart Catheterization With Stent, Hernia Repair, Joint Replacement, Orthopedic Surgery, Pacemaker Additional Past Surgical History / Comment(s): 07/09/16 Reverse L shoulder rotator cuff repair arthroplasty. Other surgical HX: AORTIC VALVE REPLACEMENT ([facility],TAVR (cow valve) ,BILATERAL GREAT TOES JT REPAIR,LEFT SHOULDER, PAIN CLINIC PROCEDURE, CATARACTS WITH LENS IMPLANTS , EMILEE INGUINAL HERNIAS, HIATAL HERNIA., [employer]IC PACEMAKER. STENT RCA 08/27/18 Past Anesthesia/Blood Transfusion Reactions: Postoperative Nausea & Vomiting (PONV) Additional Past Anesthesia/Blood Transfusion Reaction / Comment(s): no hx blood transfusion Date of Last Stent Placement:: 2017 Type of Cardiac Device: Permanent Pacemaker Device Placement Date:: 2010 LT CHEST Past Psychological History: No Psychological Hx Reported Smoking Status: Never smoker Past Alcohol Use History: Rare Past Drug Use History: None Reported - Past Family History Brother(s) Family Medical History: Cancer Additional Family Medical History / Comment(s): BROTHERS X2 PROSTATE,HIATAL HERNIA Mother Family Medical History: Congestive Heart Failure (CHF) Additional Family Medical History / Comment(s): EMPHYSEMA Father Family Medical History: Congestive Heart Failure (CHF) Additional Family Medical History / Comment(s): EMPHYSEMA General Exam Limitations: no limitations General appearance: alert, in no apparent distress, other (This is a well- developed, well-nourished adult male in no acute distress.) Eye exam: Present: normal appearance, PERRL, EOMI. Absent: scleral icterus, conjunctival injection, periorbital swelling ENT exam: Present: normal exam, normal oropharynx, mucous membranes moist Respiratory exam: Present: normal lung sounds bilaterally. Absent: respiratory distress, wheezes, rales, rhonchi, stridor Cardiovascular Exam: Present: regular rate, normal rhythm, normal heart sounds. Absent: systolic murmur, diastolic murmur, rubs, gallop, clicks GI/Abdominal exam: Present: soft, normal bowel sounds. Absent: distended, tenderness, guarding, rebound, rigid Neurological exam: Present: alert, oriented X3, CN II-XII intact Psychiatric exam: Present: normal affect, normal mood Skin exam: Present: warm, dry, intact, normal color. Absent: rash Course Vital Signs 09/10/21 09/10/21 15:22 17:48 Temperature 97.8 F 98.1 F Pulse Rate 77 60 Respiratory 20 18 Rate Blood Pressure 147/91 161/90 O2 Sat by Pulse 95 95 Oximetry Medical Decision Making - Medical Decision Making 81-year-old male patient presented to the emergency department to receive monoclonal antibodies after developing symptoms of COVID-19. Symptoms for the last couple of days. He is vaccinated. Physical examination is unremarkable. Lungs are clear to auscultation. He is in no respiratory distress. He did receive infusion without difficulty. To be discharged pop with the primary care physician for recheck in 1-2 days. Return parameters were discussed in detail. He verbalizes understanding and agrees with this plan. My attending is Dr. Latham. - Lab Data Lab Results 09/10/21 Range/Units 15:22 Coronavirus (PCR) Detected A (Not Detectd) Disposition Clinical Impression: COVID-19 Disposition: HOME SELF-CARE Condition: Good Instructions (If sedation given, give patient instructions): Coronavirus Diseas e 2019 (COVID-19) Additional Instructions: Tips to help you feel better: -Maintain adequate fluid intake - especially water. -Rest, you are healing your body will require extra sleep. -Eat even if you do not feel like it - broth, jello, toast are fine if you cannot eat full meals. -Take tylenol and motrin alternating (if you have no allergies or have not been instructed to avoid these medications) to help with body aches and fevers. -Obtain over the counter vitamin C, zinc, and vitamin D3. -Take medications as prescribed. Follow-up with your primary care physician for recheck in 1-2 days. Return for any new, worsening, or concerning symptoms. Is patient prescribed a controlled substance at d/c from ED?: No Referrals: Kendra Frey III, MD [Primary Care Provider] - 1-2 days Time of Disposition: 18:31
== END 2021-09-10 18:30 | disposition home or self-care (01) ==
LOC: EC 12:29
DX: U07.1 COVID-19 (principal); I48.91 Unspecified atrial fibrillation; K21.9 Gastro-esophageal reflux disease without esophagitis; I10 Essential (primary) hypertension; M19.90 Unspecified osteoarthritis, unspecified site; Z79.01 Long term (current) use of anticoagulants; Z85.46 Personal history of malignant neoplasm of prostate; Z90.49 Acquired absence of other specified parts of digestive tract; Z95.0 Presence of cardiac pacemaker
CPT/HCPCS: 99283; M0245; 87635

== ENCOUNTER → 2022-08-26 | Outpatient (CLI) | payer MEDICARE ==
[2022-08-26 18:43] LABS: ALT 10 U/L (10-49); AST 27 U/L (14-35); African American GFR (CKD) 58.1 (60.0-200.0); Albumin 3.7 g/dL (3.8-4.9); Albumin/Globulin Ratio 1.61 (1.60-3.17); Alkaline Phosphatase 62 U/L (41-126); BUN/Creat Ratio 19.31 Ratio (12.00-20.00); Blood Urea Nitrogen 25.1 mg/dL (9.0-27.0); Calcium 9.1 mg/dL (8.7-10.3); Carbon Dioxide 28.8 mmol/L (20.0-27.5); Chloride 102 mmol/L (96-109); Chol/HDL Ratio 1.86 Ratio; Globulin 2.3 g/dL (1.6-3.3); Glucose 89 mg/dL (70-110); LDL Cholesterol,Calculated 34.2 mg/dL (0.0-131.0); Non-African American GFR(CKD) 50.1 (60.0-200.0); Potassium 3.9 mmol/L (3.5-5.5); Sodium 142 mmol/L (135-145); VLDL Calculation 17.64 mg/dL (5.00-40.00)
== END | disposition home or self-care (01) ==
LOC: LABWHC1 11:07
PROVIDERS: ATTEND Internal Medicine Interventional Cardiology
DX: E78.2 Mixed hyperlipidemia (principal)
CPT/HCPCS: 36415; 80053; 80061

== ENCOUNTER → 2022-12-23 | Outpatient (CLI) | payer MEDICARE ==
--- NOTE | 2022-12-23 12:34 | CT ---
EXAMINATION TYPE: CT brain wo con CT DLP: 1123 mGycm, Automated exposure control for dose reduction was used. DATE OF EXAM: 12/23/2022 12:25 PM COMPARISON: Prior CT Brain from 08/19/2021. CLINICAL INDICATION:Male, 82 years old with history of R41.3,G24.4, Lack of interest, lack of energy TECHNIQUE: Brain: Multiple axial CT images of the brain were obtained without IV contrast. Coronal and sagittal reformats reviewed. FINDINGS: Brain: Extra-axial spaces: No abnormal extra-axial fluid collections. Ventricular system: Dilatation in proportion to cerebral atrophy. Cerebral parenchyma: Cerebral atrophy. No acute intraparenchymal hemorrhage or mass effect. The flaherty -white junction is well differentiated. Scattered hypoattenuating areas are seen within the white mat ter. Cerebellum: Unremarkable. Mass effect: No evidence of midline shift. Intracranial vasculature: Atherosclerotic calcifications of the intracranial vessels. Soft tissues: Normal. Calvarium/osseous structures: No depressed skull fracture. Paranasal sinuses and mastoid air cells: Air-fluid level within the left maxillary sinus with mild mu cosal thickening of the left ethmoid sinus. Frothy debris demonstrated within the sphenoid sinus. Visualized orbits: Orbital contents are intact. IMPRESSION: 1. No acute intracranial process. 2. Nonspecific white matter changes, likely secondary to chronic small vessel ischemic disease. 3. Paranasal sinus disease with air-fluid level within the left maxillary sinus. Correlate for acute sinusitis.
== END | disposition home or self-care (01) ==
LOC: RADCTMAIN 12:08
PROVIDERS: ATTEND Family Medicine
DX: R90.82 White matter disease, unspecified (principal); J32.8 Other chronic sinusitis; G24.4 Idiopathic orofacial dystonia; R41.3 Other amnesia; R26.81 Unsteadiness on feet
CPT/HCPCS: 70450

== ENCOUNTER → 2023-03-19 | Outpatient (CLI) | payer MEDICARE ==
--- NOTE | 2023-03-20 12:39 | NM ---
EXAMINATION TYPE: NM DatScan Brain SPECT DATE OF EXAM: 03/19/2023 COMPARISON: CT brain 12/23/2022 CLINICAL INDICATION: Male, 83 years old with history of G25.0 ESSENTIAL TREMOR; TECHNIQUE: 10 drops of Lugol's solution was administered 1 hour prior to injection as a thyroid bloc duarte agent. After the administration of 4.66 mCi I-123 Ioflupane DaTscan. Images obtained 3 hours p ost injection. SPECT images of the brain were acquired with axial and coronal reconstructions. FINDINGS: The normal comma-shaped appearance of the bilateral corpus striata are maintained. IMPRESSION: This normal appearance is against a diagnosis of idiopathic Parkinson's disease or a parkinsonian syn drome and is seen in healthy individuals and also patients with essential tremor, drug-induced dominik sonism, and vascular pseudo-parkinsonism.
== END | disposition home or self-care (01) ==
LOC: RADNMMAIN 11:04
PROVIDERS: ATTEND Psychiatry & Neurology Neurology
DX: G21.19 Other drug induced secondary parkinsonism (principal); G21.4 Vascular parkinsonism; G25.0 Essential tremor
CPT/HCPCS: 78803; A9584

== ENCOUNTER → 2024-01-21 | Outpatient (CLI) | payer MEDICARE ==
[2024-01-21 16:49] LABS: African American GFR (CKD) 58 (>60 ml/min/1.73 sqM); Blood Urea Nitrogen 35 mg/dL (9-20); Non-African American GFR(CKD) 50 (>60 ml/min/1.73 sqM)
--- NOTE | 2024-01-21 18:27 | CT ---
EXAMINATION TYPE: CT angio head neck CT DLP: 1604.8 mGycm, Automated exposure control for dose reduction was used. DATE OF EXAM: 01/21/2024 6:10 PM COMPARISON: CT head same day.. CLINICAL INDICATION:Male, 83 years old with history of G45.9 TIA; PHH, TIA TECHNIQUE: Axially acquired helical CT angiogram of the head and neck was obtained with contrast. Axi al images are supplemented with 3D reconstructions and MIP images which were post-processed at an in dependent workstation. NASCET criteria used. Contrast used:65 CC mL of Isovue 370 without and with IV Contrast, Oral contrast used: None. FINDINGS: CTA HEAD: No evidence of acute intracranial hemorrhage, mass effect, or midline shift. The ventricles, sulci, a nd cisterns are unremarkable. The visualized portions of the internal carotid arteries, middle cerebral arteries, anterior cerebral arteries, and posterior cerebral arteries are patent. The basilar and vertebral arteries are patent. CTA NECK: Right Carotid System: The common carotid and external carotid arteries are patent. There is less than 50 % stenosis at the carotid bifurcation secondary to calcified plaque. The rest of the internal carotid artery is patent. Left Carotid System: The common carotid and external carotid arteries are patent. There is less than 25% stenosis at the c arotid bifurcation secondary to calcified/noncalcified plaque. The rest of the internal carotid arter y is patent. Vertebral arteries are patent without evidence hemodynamically significant stenosis. There is a three-vessel aortic arch. The origins of the great vessels are patent. No evidence of hemo dynamically significant stenosis. Upper thorax: Cardiac conduction leads partially visualized. IMPRESSION: 1. Right carotid bifurcation calcified plaque with at least 50% stenosis. 2. Left carotid bifurcation calcified plaque with less than 25% stenosis. 3. The vertebral arteries are patent. 4. No evidence of dissection of the cervical internal carotid arteries or vertebral arteries 5. No evidence of intracranial high-grade stenosis or intracranial aneurysm.
== END | disposition home or self-care (01) ==
LOC: RADCTMAIN 15:22
PROVIDERS: ATTEND Family Medicine
DX: G45.9 Transient cerebral ischemic attack, unspecified (principal); Z86.73 Personal history of transient ischemic attack (TIA), and cerebral infarction without residual deficits
CPT/HCPCS: 82565; 84520; 70496; 70498; 36415; Q9967

== ENCOUNTER 2024-03-27 11:19 | Emergency (ER) | payer MEDICARE ==
[2024-03-27] MEDS: SODIUM CHLORIDE 0.9% 500 ML 500 ML IV STA (12:07)
--- NOTE | 2024-03-27 12:07 | ED ---
General Adult HPI - General Chief complaint: Neuro Symptoms/Deficit Stated complaint: Dizziness Time Seen by Provider: 03/27/24 11:33 Source: patient, RN notes reviewed, old records reviewed Mode of arrival: ambulatory Limitations: no limitations - History of Present Illness Initial comments: 84-year-old male presented with episode of lightheadedness followed by a brief moment of unresponsiveness. According to the patient's he was awake but not responsive this lasted several seconds. This was preceded by an episode of lightheadedness. Patient has no complaints at the time my evaluation. He did take his medication this morning. He ate his normal breakfast this morning. He has no focal numbness or weakness at the time of the incident or currently. No headache. No chest pain or dyspnea. No abdominal pain. No vomiting. No fever. - Related Data Home Medications Medication Instructions Recorded Confirmed Metoprolol Tartrate [Lopressor] 50 mg PO BID 02/02/15 08/19/21 Omeprazole [PriLOSEC] 20 mg PO DAILY 02/02/15 08/19/21 Terazosin [Hytrin] 5 mg PO HS 02/02/15 08/19/21 hydroCHLOROthiazide [Hydrodiuril] 25 mg PO DAILY 02/02/15 08/19/21 ramipriL [Altace] 5 mg PO DAILY 02/02/15 08/19/21 traMADol HCL [Ultram] 50 mg PO TID PRN 02/02/15 08/19/21 Ascorbic Acid [Vitamin C] 500 mg PO DAILY 08/25/15 08/19/21 Multivitamins, Thera [Multivitamin 1 tab PO DAILY 08/25/15 08/19/21 (formulary)] Glucosam/Ray-Msm1/C/Kai/Bosw 1 tab PO BID 07/05/16 08/19/21 [Glucosamine-Chondroitin Tablet] Tamsulosin HCl [Flomax] 0.4 mg PO HS 08/28/18 08/19/21 Turmeric Root Extract [Turmeric] 500 mg PO DAILY 03/26/19 08/19/21 Diclofenac Sodium [Voltaren] 75 mg PO DAILY 02/29/20 08/19/21 Evolocumab [Repatha Syringe] 140 mg SQ Q14D 02/29/20 08/19/21 Acetaminophen [Tylenol Extra 1,000 mg PO TID PRN 08/19/21 08/19/21 Strength] Apixaban [Eliquis] 5 mg PO BID 08/19/21 08/19/21 C,E,Zinc,Copper 11/Cvirp6h/Lut 1 cap PO DAILY 08/19/21 08/19/21 [Ocuvite Adult 50 Plus Softgel] Cholecalciferol [Vitamin D3 (25 50 mcg PO DAILY 08/19/21 08/19/21 Mcg = 1000 Iu)] Ferrous Sulfate [Iron] 325 mg PO DAILY 08/19/21 08/19/21 Mirabegron [Myrbetriq] 50 mg PO DAILY 08/19/21 08/19/21 Evolocumab [Repatha Syringe] 140 mg SQ 08/20/21 Previous Rx's Medication Instructions Recorded Cephalexin [Keflex] 500 mg PO Q12HR #6 cap 08/21/21 Folic Acid 1 mg PO DAILY@1200 30 Days #30 tab 08/21/21 Thiamine [Vitamin B-1] 100 mg PO BID-W/MEALS 30 Days #60 08/21/21 tab Allergies Allergy/AdvReac Type Severity Reaction Status Date / Time No Known Allergies Allergy Verified 03/27/24 11:31 Review of Systems ROS Statement: Those systems with pertinent positive or pertinent negative responses have been documented in the HPI. ROS Other: All systems not noted in ROS Statement are negative. Past Medical History Past Medical History: Atrial Fibrillation, Cancer, GERD/Reflux, Hypertension, Osteoarthritis (OA), Prostate Disorder, Vascular Disorder Additional Past Medical History / Comment(s): HX OF PROSTATE AND SKIN CANCER, [employer] PACEMAKER, Aortic VALVE (cow), TORN LEFT ROTATOR CUFF, DEGENERATIVE ARTHRITIS IN BACK WITH PAIN, LOW IRON AND LEG CRAMPS, R foot OA-pt wears a brace. dislocated shoulder interecostal neuroalgia History of Any Multi-Drug Resistant Organisms: None Reported Past Surgical History: Cardiac Valve Replacement, Cholecystectomy, Heart Catheterization, Heart Catheterization With Stent, Hernia Repair, Joint Replacement, Orthopedic Surgery, Pacemaker Additional Past Surgical History / Comment(s): 07/09/16 Reverse L shoulder rotator cuff repair arthroplasty. Other surgical HX: AORTIC VALVE REPLACEMENT (ST CINDY BOVINE,TAVR (cow valve) ,BILATERAL GREAT TOES JT REPAIR,LEFT SHOULDER, PAIN CLINIC PROCEDURE, CATARACTS WITH LENS IMPLANTS , EMILEE INGUINAL HERNIAS, HIATAL HERNIA., [employer] PACEMAKER. STENT RCA 08/27/18 Past Anesthesia/Blood Transfusion Reactions: Postoperative Nausea & Vomiting (PONV) Additional Past Anesthesia/Blood Transfusion Reaction / Comment(s): no hx blood transfusion Date of Last Stent Placement:: 2017 Type of Cardiac Device: Permanent Pacemaker Device Placement Date:: 2010 LT CHEST Past Psychological History: No Psychological Hx Reported Smoking Status: Never smoker Past Alcohol Use History: Rare Past Drug Use History: None Reported - Past Family History Brother(s) Family Medical History: Cancer Additional Family Medical History / Comment(s): BROTHERS X2 PROSTATE,HIATAL HERNIA Mother Family Medical History: Congestive Heart Failure (CHF) Additional Family Medical History / Comment(s): EMPHYSEMA Father Family Medical History: Congestive Heart Failure (CHF) Additional Family Medical History / Comment(s): EMPHYSEMA General Exam Limitations: no limitations General appearance: alert, in no apparent distress Head exam: Present: atraumatic, normocephalic Eye exam: Present: normal appearance, PERRL ENT exam: Present: normal exam Neck exam: Present: normal inspection. Absent: tenderness, meningismus Respiratory exam: Present: normal lung sounds bilaterally. Absent: respiratory distress, wheezes Cardiovascular Exam: Present: regular rate, normal rhythm GI/Abdominal exam: Present: soft. Absent: distended, tenderness Extremities exam: Present: normal inspection, normal capillary refill. Absent: pedal edema Neurological exam: Present: alert, oriented X3, CN II-XII intact. Absent: motor sensory deficit Course Vital Signs 03/27/24 03/27/24 03/27/24 11:26 12:22 13:26 Temperature 98 F Pulse Rate 70 61 60 Respiratory 18 20 16 Rate Blood Pressure 86/57 111/69 120/74 O2 Sat by Pulse 94 L 94 L 95 Oximetry Medical Decision Making - Medical Decision Making Was pt. sent in by a medical professional or institution (, PA, GEOSCIENCE SPECIALIST, urgent care, hospital, or penitentiary...) When possible be specific @ -No Did you speak to anyone other than the patient for history (EMS, parent, family, police, friend...)? What history was obtained from this source @ -No Did you review nursing and triage notes (agree or disagree)? Why? @ -I reviewed and agree with nursing and triage notes Were old charts reviewed (outside hosp., previous admission, EMS record, old EKG, old radiological studies, urgent care reports/EKG's, penitentiary records)? Report findings @ -No old charts were reviewed Differential Syncope: Valvular disease, hypertrophic cardiomyopathy, pulmonary embolism, tamponade, tachycardia, bradycardia, GA, hypovolemia, hemorrhage, dissection, anemia, intracranial hemorrhage, seizure, hypoglycemia, carbon monoxide poisoning, this is not meant to be an all-inclusive list. ] EKG interpreted by me (3pts min.). @EKG: Paced rhythm rate of 61, NJ interval 207, QRS duration 149, QTc 442 X-rays interpreted by me (1pt min.). @ -Chest x-ray showing chronic changes without acute abnormality. CT interpreted by me (1pt min.). @ -None done U/S interpreted by me (1pt. min.). @ -None done What testing was considered but not performed or refused? (CT, X-rays, U/S, labs)? Why? @ -None What meds were considered but not given or refused? Why? @ -None Did you discuss the management of the patient with other professionals (professionals i.e. , PA, GEOSCIENCE SPECIALIST, lab, RT, psych nurse, social services counselor, senior marketing data analyst, teacher, staff air tactical officer, block and case maker)? Give summary @ -No Was smoking cessation discussed for >3mins.? @ -No Was critical care preformed (if so, how long)? @ -No Were there social determinants of health that impacted care today? How? (Homelessness, low income, unemployed, alcoholism, drug addiction, transportation, low edu. Level, literacy, decrease access to med. care, snf, rehab)? @ -No Was there de-escalation of care discussed even if they declined (Discuss DNR or withdrawal of care, Hospice)? DNR status @ -No What co-morbidities impacted this encounter? (DM, HTN, Smoking, COPD, CAD, Cancer, CVA, ARF, Chemo, Hep., AIDS, mental health diagnosis, sleep apnea, morbid obesity)? @ -Valvular heart disease, CAD Was patient admitted / discharged? Hospital course, mention meds given and route, prescriptions, significant lab abnormalities, going to OR and other pertinent info. @ -84-year-old male presenting for evaluation of lightheadedness and suspect momentary near syncopal or syncopal episode. Patient is without complaint at the time my evaluation. He is in a paced rhythm. Initial blood pressure is 87 systolic. This does improve while in the emergency department. He has CBC showing thrombocytopenia which is chronic. Otherwise normal laboratory testing. Chest x-ray is clear. I did reevaluate the patient had discussion about the possible causes of this event. Patient remained asymptomatic and was eager for discharge. I did discuss the risks with the family who is at bedside. They are agreeable with discharge and they will monitor blood pressure closely at home to see if there is a need for medication adjustment. Patient is encouraged to return to the emergency department with any worsening or changing symptoms. Undiagnosed new problem with uncertain prognosis? @ -No Drug Therapy requiring intensive monitoring for toxicity (Heparin, Nitro, Insu zara, Cardizem)? @ -No Were any procedures done? @ -No Diagnosis/symptom? @ -Near syncope Acute, or Chronic, or Acute on Chronic? @ -[Acute Uncomplicated (without systemic symptoms) or Complicated (systemic symptoms)? @ -Default Side effects of treatment? @ -No Exacerbation, Progression, or Severe Exacerbation? @ -No Poses a threat to life or bodily function? How? (Chest pain, USA, GA, pneumonia, PE, COPD, DKA, ARF, appy, cholecystitis, CVA, Diverticulitis, Homicidal, Suicidal, threat to staff... and all critical care pts) @ -Low risk at this time - Lab Data Result diagrams: 03/27/24 12:04 03/27/24 12:04 Lab Results 03/27/24 03/27/24 03/27/24 Range/Units 12:04 12:04 12:04 WBC 9.2 (3.8-10.6) k/uL RBC 4.43 (4.30-5.90) m/uL Hgb 14.5 (13.0-17.5) gm/dL Hct 45.4 (39.0-53.0) % MCV 102.4 H (80.0-100.0) fL MCH 32.8 (25.0-35.0) pg MCHC 32.0 (31.0-37.0) g/dL RDW 12.3 (11.5-15.5) % Plt Count 88 L (150-450) k/uL MPV 10.1 Neutrophils % 82 % Lymphocytes % 9 % Monocytes % 6 % Eosinophils % 2 % Basophils % 0 % Neutrophils # 7.6 (1.3-7.7) k/uL Lymphocytes # 0.8 L (1.0-4.8) k/uL Monocytes # 0.5 (0-1.0) k/uL Eosinophils # 0.2 (0-0.7) k/uL Basophils # 0.0 (0-0.2) k/uL Manual Slide Review Performed PT 11.7 (10.0-12.5) sec INR 1.1 (<1.2) APTT 26.5 (22.0-30.0) sec Sodium (137-145) mmol/L Potassium (3.5-5.1) mmol/L Chloride (98-107) mmol/L Carbon Dioxide (22-30) mmol/L Anion Gap mmol/L BUN (9-20) mg/dL Creatinine (0.66-1.25) mg/dL Est GFR (CKD-EPI)AfAm (>60 ml/min/1.73 sqM) Est GFR (CKD-EPI)NonAf (>60 ml/min/1.73 sqM) Glucose (74-99) mg/dL Calcium (8.4-10.2) mg/dL Total Bilirubin (0.2-1.3) mg/dL AST (17-59) U/L ALT (4-49) U/L Alkaline Phosphatase (38-126) U/L Troponin I (0.000-0.034) ng/mL Total Protein (6.3-8.2) g/dL Albumin (3.5-5.0) g/dL Urine Color Yellow Urine Appearance Clear (Clear) Urine pH 5.5 (5.0-8.0) Ur Specific [place] 1.032 (1.001-1.035) Urine Protein Trace H (Negative) Urine Glucose (UA) Negative (Negative) Urine Ketones Negative (Negative) Urine Blood Negative (Negative) Urine Nitrite Negative (Negative) Urine Bilirubin Negative (Negative) Urine Urobilinogen <2.0 (<2.0) mg/dL Ur Leukocyte Esterase Negative (Negative) 03/27/24 03/27/24 Range/Units 12:04 12:04 WBC (3.8-10.6) k/uL RBC (4.30-5.90) m/uL Hgb (13.0-17.5) gm/dL Hct (39.0-53.0) % MCV (80.0-100.0) fL MCH (25.0-35.0) pg MCHC (31.0-37.0) g/dL RDW (11.5-15.5) % Plt Count (150-450) k/uL MPV Neutrophils % % Lymphocytes % % Monocytes % % Eosinophils % % Basophils % % Neutrophils # (1.3-7.7) k/uL Lymphocytes # (1.0-4.8) k/uL Monocytes # (0-1.0) k/uL Eosinophils # (0-0.7) k/uL Basophils # (0-0.2) k/uL Manual Slide Review PT (10.0-12.5) sec INR (<1.2) APTT (22.0-30.0) sec Sodium 139 (137-145) mmol/L Potassium 4.0 (3.5-5.1) mmol/L Chloride 108 H (98-107) mmol/L Carbon Dioxide 24 (22-30) mmol/L Anion Gap 7 mmol/L BUN 33 H (9-20) mg/dL Creatinine 1.24 (0.66-1.25) mg/dL Est GFR (CKD-EPI)AfAm 61 (>60 ml/min/1.73 sqM) Est GFR (CKD-EPI)NonAf 53 (>60 ml/min/1.73 sqM) Glucose 134 H (74-99) mg/dL Calcium 9.0 (8.4-10.2) mg/dL Total Bilirubin 0.5 (0.2-1.3) mg/dL AST 22 (17-59) U/L ALT 13 (4-49) U/L Alkaline Phosphatase 45 (38-126) U/L Troponin I 0.028 (0.000-0.034) ng/mL Total Protein 5.7 L (6.3-8.2) g/dL Albumin 3.7 (3.5-5.0) g/dL Urine Color Urine Appearance (Clear) Urine pH (5.0-8.0) Ur Specific [place] (1.001-1.035) Urine Protein (Negative) Urine Glucose (UA) (Negative) Urine Ketones (Negative) Urine Blood (Negative) Urine Nitrite (Negative) Urine Bilirubin (Negative) Urine Urobilinogen (<2.0) mg/dL Ur Leukocyte Esterase (Negative) Disposition Clinical Impression: Near syncope Disposition: HOME SELF-CARE Condition: Fair Instructions (If sedation given, give patient instructions): Near Syncope (ED) Additional Instructions: Please monitor blood pressure closely. Please drink more fluids and eat on a regular basis. Please feel free to return to the emergency department with any worsening or changing symptoms. Is patient prescribed a controlled substance at d/c from ED?: No Referrals: Eldon Kirby Jr, DO [Primary Care Provider] - 1-2 days Chica Hwang MD [STAFF PHYSICIAN] - 1-2 days Time of Disposition: 13:43
[2024-03-27 12:13] LABS: Basophils % (A) 0 %; Eosinophils # (A) 0.2 k/uL (0-0.7); Eosinophils % (A) 2 %; HCT 45.4 % (39.0-53.0); HGB 14.5 gm/dL (13.0-17.5); Lymphocytes # (A) 0.8 k/uL (1.0-4.8); Lymphocytes % (A) 9 %; MCH 32.8 pg (25.0-35.0); MCV 102.4 fL (80.0-100.0); Mean Platelet Volume 10.1; Monocytes # (A) 0.5 k/uL (0-1.0); Monocytes % (A) 6 %; Neutrophils # (A) 7.6 k/uL (1.3-7.7); Neutrophils % (A) 82 %; RBC 4.43 m/uL (4.30-5.90); RDW 12.3 % (11.5-15.5); WBC 9.2 k/uL (3.8-10.6)
[2024-03-27 12:19] LABS: INR 1.1 (<1.2); Partial Thromboplastin Time 26.5 sec (22.0-30.0); Prothrombin Time 11.7 sec (10.0-12.5)
[2024-03-27 12:24] LABS: ALT 13 U/L (4-49); AST 22 U/L (17-59); African American GFR (CKD) 61 (>60 ml/min/1.73 sqM); Albumin 3.7 g/dL (3.5-5.0); Alkaline Phosphatase 45 U/L (38-126); Anion Gap 7 mmol/L; Blood Urea Nitrogen 33 mg/dL (9-20); Carbon Dioxide 24 mmol/L (22-30); Chloride 108 mmol/L (98-107); Glucose 134 mg/dL (74-99); Non-African American GFR(CKD) 53 (>60 ml/min/1.73 sqM); Sodium 139 mmol/L (137-145); Total Bilirubin 0.5 mg/dL (0.2-1.3); Total Protein 5.7 g/dL (6.3-8.2)
[2024-03-27 12:33] LABS: Platelet Count 88 k/uL (150-450)
[2024-03-27 12:41] LABS: Appearance,Urine Clear (Clear); Bilirubin,Urine Negative (Negative); Blood,Urine Negative (Negative); Color,Urine Yellow; Glucose,Urine (UA) Negative (Negative); Ketones,Urine Negative (Negative); Leukocyte Esterase,Urine Negative (Negative); Nitrite,Urine Negative (Negative); PH, Urine 5.5 (5.0-8.0); Protein,Urine Trace (Negative); Specific Gravity,Urine 1.032 (1.001-1.035); Urobilinogen,Urine <2.0 mg/dL (<2.0)
--- NOTE | 2024-03-27 12:57 | XR ---
EXAMINATION TYPE: XR chest 2V DATE OF EXAM: 03/27/2024 12:26 PM CLINICAL INDICATION:Male, 84 years old with history of syncope; [facility] COMPARISON: Chest radiographs from 08/19/2021 TECHNIQUE: XR chest 2V Frontal view of the chest. FINDINGS: Lungs/Pleura: There is no evidence of pleural effusion, focal consolidation, or pneumothorax. Pulmonary vascularity: Unremarkable. Heart/mediastinum: Cardiomediastinal silhouette is enlarged and stable. Post valve repair changes. T hree lead cardiac conduction device overlying the left hemithorax with lead tips projecting over the right ventricle, right atrium and coronary sinus. Musculoskeletal: No acute osseous pathology. Remote injury to the right humerus with incomplete osseo us fusion. There is post surgical changes to the left proximal humerus with hardware intact. IMPRESSION: No acute cardiopulmonary disease/process.
[2024-03-27 14:01] VITALS: BP 113/77; PULSE 61; RESP 18; TEMP 97.8
== END 2024-03-27 14:01 | disposition home or self-care (01) ==
LOC: EC 11:19
DX: R55 Syncope and collapse (principal); Z95.0 Presence of cardiac pacemaker; Z95.2 Presence of prosthetic heart valve; Z95.5 Presence of coronary angioplasty implant and graft; Z90.49 Acquired absence of other specified parts of digestive tract
CPT/HCPCS: 36415; 71046; 80053; 81003; 84484; 85025; 85610; 85730; 93005; 96360; 99284

== ENCOUNTER 2024-08-30 16:20 | Emergency (ER) | payer MEDICARE ==
[2024-08-30 16:31] VITALS: TEMP 98
[2024-08-30 17:54] LABS: Basophils % (A) 0 %; Eosinophils # (A) 0.2 k/uL (0-0.7); Eosinophils % (A) 3 %; HCT 47.7 % (39.0-53.0); HGB 15.6 gm/dL (13.0-17.5); Lymphocytes # (A) 1.2 k/uL (1.0-4.8); Lymphocytes % (A) 13 %; MCH 32.5 pg (25.0-35.0); MCHC 32.6 g/dL (31.0-37.0); MCV 99.6 fL (80.0-100.0); Monocytes # (A) 0.5 k/uL (0-1.0); Monocytes % (A) 6 %; Neutrophils # (A) 6.7 k/uL (1.3-7.7); Neutrophils % (A) 76 %; Platelet Count 114 k/uL (150-450); RBC 4.79 m/uL (4.30-5.90); RDW 12.4 % (11.5-15.5); WBC 8.8 k/uL (3.8-10.6)
[2024-08-30 18:17] LABS: ALT 27 U/L (4-49); AST 45 U/L (17-59); African American GFR (CKD) 50 (>60 ml/min/1.73 sqM); Albumin 4.7 g/dL (3.5-5.0); Alkaline Phosphatase 77 U/L (38-126); Anion Gap 5 mmol/L; Blood Urea Nitrogen 34 mg/dL (9-20); Calcium 9.5 mg/dL (8.4-10.2); Carbon Dioxide 30 mmol/L (22-30); Chloride 103 mmol/L (98-107); Glucose 92 mg/dL (74-99); Non-African American GFR(CKD) 43 (>60 ml/min/1.73 sqM); Potassium 4.3 mmol/L (3.5-5.1); Sodium 138 mmol/L (137-145); Total Bilirubin 0.7 mg/dL (0.2-1.3)
--- NOTE | 2024-08-30 18:46 | ED ---
Abdominal Pain HPI - General Chief Complaint: Abdominal Pain Stated Complaint: Abd pain Time Seen by Provider: 08/30/24 18:46 Source: patient, RN notes reviewed Mode of arrival: ambulatory Limitations: no limitations - History of Present Illness Initial Comments: 84-year-old male presenting to the ER for evaluation of intermittent right upper quadrant abdominal discomfort. He states since Friday he has been experiencing 4 episodes of sharp right upper quadrant abdominal pain. He states he had 1 episode on Friday 2 on Friday and 1 today. He denies radiation of pain. He reports Pepto-Bismol seems to help. He denies any vomiting but admits to occasional nausea during the episodes. Episodes typically last between 10 to 15 minutes then resolved. No change in bowel habits or urinary complaints. No fevers. No chest pain, shortness of breath, dizziness, lightheadedness, peripheral edema. Patient reports a history of a cholecystectomy. - Related Data Home Medications Medication Instructions Recorded Confirmed Metoprolol Tartrate [Lopressor] 50 mg PO BID 02/02/15 08/19/21 Omeprazole [PriLOSEC] 20 mg PO DAILY 02/02/15 08/19/21 Terazosin [Hytrin] 5 mg PO HS 02/02/15 08/19/21 hydroCHLOROthiazide [Hydrodiuril] 25 mg PO DAILY 02/02/15 08/19/21 ramipriL [Altace] 5 mg PO DAILY 02/02/15 08/19/21 traMADol HCL [Ultram] 50 mg PO TID PRN 02/02/15 08/19/21 Ascorbic Acid [Vitamin C] 500 mg PO DAILY 08/25/15 08/19/21 Multivitamins, Thera [Multivitamin 1 tab PO DAILY 08/25/15 08/19/21 (formulary)] Glucosam/Ray-Msm1/C/Kai/Bosw 1 tab PO BID 07/05/16 08/19/21 [Glucosamine-Chondroitin Tablet] Tamsulosin HCl [Flomax] 0.4 mg PO HS 08/28/18 08/19/21 Turmeric Root Extract [Turmeric] 500 mg PO DAILY 03/26/19 08/19/21 Diclofenac Sodium [Voltaren] 75 mg PO DAILY 02/29/20 08/19/21 Evolocumab [Repatha Syringe] 140 mg SQ Q14D 02/29/20 08/19/21 Acetaminophen [Tylenol Extra 1,000 mg PO TID PRN 08/19/21 08/19/21 Strength] Apixaban [Eliquis] 5 mg PO BID 08/19/21 08/19/21 C,E,Zinc,Copper 11/Hlbuq6t/Lut 1 cap PO DAILY 08/19/21 08/19/21 [Ocuvite Adult 50 Plus Softgel] Cholecalciferol [Vitamin D3 (25 50 mcg PO DAILY 08/19/21 08/19/21 Mcg = 1000 Iu)] Ferrous Sulfate [Iron] 325 mg PO DAILY 08/19/21 08/19/21 Mirabegron [Myrbetriq] 50 mg PO DAILY 08/19/21 08/19/21 Evolocumab [Repatha Syringe] 140 mg SQ 08/20/21 Previous Rx's Medication Instructions Recorded Cephalexin [Keflex] 500 mg PO Q12HR #6 cap 08/21/21 Folic Acid 1 mg PO DAILY@1200 30 Days #30 tab 08/21/21 Thiamine [Vitamin B-1] 100 mg PO BID-W/MEALS 30 Days #60 08/21/21 tab Omeprazole [PriLOSEC] 20 mg PO AC-BRKFST #14 cap 08/30/24 Allergies Allergy/AdvReac Type Severity Reaction Status Date / Time No Known Allergies Allergy Verified 03/27/24 11:31 Review of Systems ROS Statement: Those systems with pertinent positive or pertinent negative responses have been documented in the HPI. ROS Other: All systems not noted in ROS Statement are negative. Past Medical History Past Medical History: Atrial Fibrillation, Cancer, GERD/Reflux, Hypertension, Osteoarthritis (OA), Prostate Disorder, Vascular Disorder Additional Past Medical History / Comment(s): HX OF PROSTATE AND SKIN CANCER, [employer] PACEMAKER, Aortic VALVE (cow), TORN LEFT ROTATOR CUFF, DEGENERATIVE ARTHRITIS IN BACK WITH PAIN, LOW IRON AND LEG CRAMPS, R foot OA-pt wears a brace. dislocated shoulder interecostal neuroalgia History of Any Multi-Drug Resistant Organisms: None Reported Past Surgical History: Cardiac Valve Replacement, Cholecystectomy, Heart Catheterization, Heart Catheterization With Stent, Hernia Repair, Joint Replacem ent, Orthopedic Surgery, Pacemaker Additional Past Surgical History / Comment(s): 07/09/16 Reverse L shoulder rotator cuff repair arthroplasty. Other surgical HX: AORTIC VALVE REPLACEMENT ([facility] CINDY BOVINE,TAVR (cow valve) ,BILATERAL GREAT TOES JT REPAIR,LEFT SHOULDER, PAIN CLINIC PROCEDURE, CATARACTS WITH LENS IMPLANTS , EMILEE INGUINAL HERNIAS, HIATAL HERNIA., [employer]IC PACEMAKER. STENT RCA 08/27/18 Past Anesthesia/Blood Transfusion Reactions: Postoperative Nausea & Vomiting (PONV) Additional Past Anesthesia/Blood Transfusion Reaction / Comment(s): no hx blood transfusion Date of Last Stent Placement:: 2017 Type of Cardiac Device: Permanent Pacemaker Device Placement Date:: 2010 LT CHEST Past Psychological History: No Psychological Hx Reported Smoking Status: Never smoker Past Alcohol Use History: Rare Past Drug Use History: None Reported - Past Family History Brother(s) Family Medical History: Cancer Additional Family Medical History / Comment(s): BROTHERS X2 PROSTATE,HIATAL HERNIA Mother Family Medical History: Congestive Heart Failure (CHF) Additional Family Medical History / Comment(s): EMPHYSEMA Father Family Medical History: Congestive Heart Failure (CHF) Additional Family Medical History / Comment(s): EMPHYSEMA General Exam Limitations: no limitations General appearance: alert, in no apparent distress Respiratory exam: Present: normal lung sounds bilaterally. Absent: respiratory distress, wheezes, rales, rhonchi, stridor Cardiovascular Exam: Present: regular rate, normal rhythm, normal heart sounds. Absent: systolic murmur, diastolic murmur, rubs, gallop, clicks GI/Abdominal exam: Present: soft, normal bowel sounds. Absent: distended, tenderness, guarding, rebound, rigid Extremities exam: Present: normal inspection, full ROM, normal capillary refill. Absent: tenderness, pedal edema, joint swelling, calf tenderness Neurological exam: Present: alert, oriented X3, CN II-XII intact Skin exam: Present: warm, dry, intact, normal color. Absent: rash Course Vital Signs 08/30/24 08/30/24 08/30/24 16:28 19:03 20:12 Temperature 98.0 F 98.0 F Pulse Rate 76 60 69 Respiratory 18 16 18 Rate Blood Pressure 155/93 138/96 138/89 O2 Sat by Pulse 94 L 97 97 Oximetry Medical Decision Making - Medical Decision Making Was pt. sent in by a medical professional or institution (, PA, CONTROLS DESIGNER, urgent care, hospital, or longterm...) When possible be specific @ -No Did you speak to anyone other than the patient for history (EMS, parent, family, police, friend...)? What history was obtained from this source @ -Patient's aiding in HPI and PMhx. Did you review nursing and triage notes (agree or disagree)? Why? @ -I reviewed and agree with nursing and triage notes Were old charts reviewed (outside hosp., previous admission, EMS record, old EKG, old radiological studies, urgent care reports/EKG's, longterm records)? Report findings @ -No old charts were reviewed Differential Diagnosis (chest pain, altered mental status, abdominal pain women, abdominal pain men, vaginal bleeding, weakness, fever, dyspnea, syncope, headache, dizziness, GI bleed, back pain, seizure, CVA, palpatations, mental health, musculoskeletal)? @ -Differential Abdominal Pain Men:Appendicitis, cholecystitis, diverticulosis, ischemic bowel, pancreatitis, hepatitis, UTI, gastroenteritis, AAA, incarcerated hernia, bowel obstruction, constipation, inflammatory bowel, hepatitis, peptic ulcer disease, splenic infarction, perforated viscus, testicular torsion, this is not meant to be an all-inclusive list EKG interpreted by me (3pts min.). @ -None done X-rays interpreted by me (1pt min.). @ -None done CT interpreted by me (1pt min.). @ -None done U/S interpreted by me (1pt. min.). @ -None done What testing was considered but not performed or refused? (CT, X-rays, U/S, labs)? Why? @ -Imaging deferred at this time as patient is tolerating oral intake, benign labs, benign exam with no current discomfort. Patient is agreeable. What meds were considered but not given or refused? Why? @ -None Did you discuss the management of the patient with other professionals (professionals i.e. , PA, CONTROLS DESIGNER, lab, RT, psych nurse, social media marketing specialist, film painter, teacher, president and chief executive officer, director of casework)? Give summary @ -No Was smoking cessation discussed for >3mins.? @ -No Was critical care preformed (if so, how long)? @ -No Were there social determinants of health that impacted care today? How? (Homelessness, low income, unemployed, alcoholism, drug addiction, transportation, low edu. Level, literacy, decrease access to med. care, group home, rehab)? @ -No Was there de-escalation of care discussed even if they declined (Discuss DNR or withdrawal of care, Hospice)? DNR status @ -No What co-morbidities impacted this encounter? (DM, HTN, Smoking, COPD, CAD, Cancer, CVA, ARF, Chemo, Hep., AIDS, mental health diagnosis, sleep apnea, morbid obesity)? @ -None Was patient admitted / discharged? Hospital course, mention meds given and route, prescriptions, significant lab abnormalities, going to OR and other pertinent info. @ -[Discharge. 84-year-old male presented to the ER for evaluation of abdominal pain. Patient reports he has had 4 episodes of sharp abdominal pain lasting 10 to 15 minutes over the past 3 days. He is not currently having discomfort. Upon evaluation, history and physical exam completed. Vitals within normal limits. Patient in no signs of acute distress nontoxic-appearing. Patient appears well-developed and well-nourished. Exam benign. Laboratory studies obtained showing an SCOOTER with a BUN of 34, creatinine 1.45 with a GFR 43 for which patient received IV fluids. Urinalysis concerning of dehydration with 1+ proteins. As patient is tolerating oral intake with a benign exam and abdominal labs and having no current discomfort imaging is deferred and patient is stable for discharge. Omeprazole prescribed. Strict return parameters discussed. Patient discharged in stable condition with follow-up to PCP. Patient verbally expressed understanding and agreement with care plan. Case discussed with ED attending, Dr. Latham. Undiagnosed new problem with uncertain prognosis? @ -No Drug Therapy requiring intensive monitoring for toxicity (Heparin, Nitro, Insulin, Cardizem)? @ -No Were any procedures done? @ -No Diagnosis/symptom? @ -Abdominal pain/SCOOTER Acute, or Chronic, or Acute on Chronic? @ -Acute Uncomplicated (without systemic symptoms) or Complicated (systemic symptoms)? @ -Uncomplicated Side effects of treatment? @ -No Exacerbation, Progression, or Severe Exacerbation? @ -No Poses a threat to life or bodily function? How? (Chest pain, USA, ID, pneumonia, PE, COPD, DKA, ARF, appy, cholecystitis, CVA, Diverticulitis, Homicidal, Suicidal, threat to staff... and all critical care pts) @ -No - Lab Data Result diagrams: 08/30/24 17:45 08/30/24 17:45 Lab Results 08/30/24 08/30/24 08/30/24 Range/Units 17:45 17:45 17:45 WBC 8.8 (3.8-10.6) k/uL RBC 4.79 (4.30-5.90) m/uL Hgb 15.6 (13.0-17.5) gm/dL Hct 47.7 (39.0-53.0) % MCV 99.6 (80.0-100.0) fL MCH 32.5 (25.0-35.0) pg MCHC 32.6 (31.0-37.0) g/dL RDW 12.4 (11.5-15.5) % Plt Count 114 L (150-450) k/uL MPV 10.0 Neutrophils % 76 % Lymphocytes % 13 % Monocytes % 6 % Eosinophils % 3 % Basophils % 0 % Neutrophils # 6.7 (1.3-7.7) k/uL Lymphocytes # 1.2 (1.0-4.8) k/uL Monocytes # 0.5 (0-1.0) k/uL Eosinophils # 0.2 (0-0.7) k/uL Basophils # 0.0 (0-0.2) k/uL Sodium 138 (137-145) mmol/L Potassium 4.3 (3.5-5.1) mmol/L Chloride 103 (98-107) mmol/L Carbon Dioxide 30 (22-30) mmol/L Anion Gap 5 mmol/L BUN 34 H (9-20) mg/dL Creatinine 1.45 H (0.66-1.25) mg/dL Est GFR (CKD-EPI)AfAm 50 (>60 ml/min/1.73 sqM) Est GFR (CKD-EPI)NonAf 43 (>60 ml/min/1.73 sqM) Glucose 92 (74-99) mg/dL Plasma Lactic Acid Terrell 1.3 (0.7-2.0) mmol/L Calcium 9.5 (8.4-10.2) mg/dL Total Bilirubin 0.7 (0.2-1.3) mg/dL AST 45 (17-59) U/L ALT 27 (4-49) U/L Alkaline Phosphatase 77 (38-126) U/L Total Protein 7.0 (6.3-8.2) g/dL Albumin 4.7 (3.5-5.0) g/dL Amylase (30-110) U/L Lipase (23-300) U/L Urine Color Urine Appearance (Clear) Urine pH (5.0-8.0) Ur Specific Auxier (1.001-1.035) Urine Protein (Negative) Urine Glucose (UA) (Negative) Urine Ketones (Negative) Urine Blood (Negative) Urine Nitrite (Negative) Urine Bilirubin (Negative) Urine Urobilinogen (<2.0) mg/dL Ur Leukocyte Esterase (Negative) Urine RBC (0-5) /hpf Urine WBC (0-5) /hpf Ur Squamous Epith Cells (0-4) /hpf Hyaline Casts (0-2) /lpf Urine Mucus (None) /hpf 08/30/24 08/30/24 Range/Units 17:45 18:19 WBC (3.8-10.6) k/uL RBC (4.30-5.90) m/uL Hgb (13.0-17.5) gm/dL Hct (39.0-53.0) % MCV (80.0-100.0) fL MCH (25.0-35.0) pg MCHC (31.0-37.0) g/dL RDW (11.5-15.5) % Plt Count (150-450) k/uL MPV Neutrophils % % Lymphocytes % % Monocytes % % Eosinophils % % Basophils % % Neutrophils # (1.3-7.7) k/uL Lymphocytes # (1.0-4.8) k/uL Monocytes # (0-1.0) k/uL Eosinophils # (0-0.7) k/uL Basophils # (0-0.2) k/uL Sodium (137-145) mmol/L Potassium (3.5-5.1) mmol/L Chloride (98-107) mmol/L Carbon Dioxide (22-30) mmol/L Anion Gap mmol/L BUN (9-20) mg/dL Creatinine (0.66-1.25) mg/dL Est GFR (CKD-EPI)AfAm (>60 ml/min/1.73 sqM) Est GFR (CKD-EPI)NonAf (>60 ml/min/1.73 sqM) Glucose (74-99) mg/dL Plasma Lactic Acid Terrell (0.7-2.0) mmol/L Calcium (8.4-10.2) mg/dL Total Bilirubin (0.2-1.3) mg/dL AST (17-59) U/L ALT (4-49) U/L Alkaline Phosphatase (38-126) U/L Total Protein (6.3-8.2) g/dL Albumin (3.5-5.0) g/dL Amylase 66 (30-110) U/L Lipase 42 (23-300) U/L Urine Color Yellow Urine Appearance Clear (Clear) Urine pH 6.0 (5.0-8.0) Ur Specific Auxier 1.030 (1.001-1.035) Urine Protein 1+ H (Negative) Urine Glucose (UA) Negative (Negative) Urine Ketones Negative (Negative) Urine Blood Negative (Negative) Urine Nitrite Negative (Negative) Urine Bilirubin Negative (Negative) Urine Urobilinogen <2.0 (<2.0) mg/dL Ur Leukocyte Esterase Negative (Negative) Urine RBC 1 (0-5) /hpf Urine WBC 5 (0-5) /hpf Ur Squamous Epith Cells <1 (0-4) /hpf Hyaline Casts 6 H (0-2) /lpf Urine Mucus Rare H (None) /hpf Disposition Clinical Impression: Abdominal pain, SCOOTER (acute kidney injury) Disposition: HOME SELF-CARE Condition: Stable Instructions (If sedation given, give patient instructions): Abdominal Pain (ED) Additional Instructions: Follow-up with PCP. I encourage him to increase liquid intake. Follow-up with PCP. Return to the ER for any new or worsening concerns. Prescriptions: Omeprazole [PriLOSEC] 20 mg PO AC-BRKFST #14 cap Is patient prescribed a controlled substance at d/c from ED?: No Referrals: Eldon Kirby Jr, DO [Primary Care Provider] - 1-2 days Time of Disposition: 19:46
[2024-08-30 18:59] LABS: Appearance,Urine Clear (Clear); Bilirubin,Urine Negative (Negative); Blood,Urine Negative (Negative); Color,Urine Yellow; Glucose,Urine (UA) Negative (Negative); Hyaline Casts,Urine 6 /lpf (0-2); Ketones,Urine Negative (Negative); Leukocyte Esterase,Urine Negative (Negative); Mucus,Urine Rare /hpf; Nitrite,Urine Negative (Negative); Protein,Urine 1+ (Negative); RBC,Urine 1 /hpf (0-5); Squamous Epithelial Cell,Urine <1 /hpf (0-4); Urobilinogen,Urine <2.0 mg/dL (<2.0); WBC,Urine 5 /hpf (0-5)
[2024-08-30] MEDS: SODIUM CHLORIDE 0.9% 1,000 ML IV STA (19:01)
[2024-08-30 19:39] LABS: Amylase 66 U/L (30-110); Lipase 42 U/L (23-300)
[2024-08-30 20:38] VITALS: BP 138/89; PULSE 69; RESP 18
== END 2024-08-30 20:20 | disposition home or self-care (01) ==
LOC: EC 16:20
DX: N17.9 Acute kidney failure, unspecified (principal); Z95.0 Presence of cardiac pacemaker; Z95.2 Presence of prosthetic heart valve; Z95.5 Presence of coronary angioplasty implant and graft; Z90.49 Acquired absence of other specified parts of digestive tract
CPT/HCPCS: 36415; 80053; 81001; 82150; 83605; 83690; 85025; 96360; 99284

== ENCOUNTER → 2024-09-02 | Outpatient (CLI) | payer MEDICARE ==
--- NOTE | 2024-09-02 14:29 | CT ---
EXAMINATION TYPE: CT abdomen pelvis wo/w con CT DLP: 1360.7 mGycm, Automated exposure control for dose reduction was used. DATE OF EXAM: 09/02/2024 2:16 PM COMPARISON: CT abdomen pelvis 02/22/2021, PET/CT 04/14/2020 CLINICAL INDICATION:Male, 84 years old with history of R10.11 RIGHT UPPER QUADRANT PAIN; RUQ abdomina l pain. TECHNIQUE: Standard CT of the abdomen and pelvis before and after the uneventful administration of 80 mL of Isovue-300 intravenously. Oral contrast was administered. Coronal and sagittal reformats wer e performed. FINDINGS: LOWER CHEST: Median sternotomy wires. Cardiomegaly. Partial visualization of cardiac pacemaker leads within the right atrium and right ventricle. Postsurgical changes of the aortic valve. Dense mitral a nnulus calcifications. ABDOMEN LIVER: Wedge-shaped low-attenuation region within the periphery of the right hepatic lobe is unchange d. Consider benign due to stability. No new suspicious lesions. GALLBLADDER AND BILE DUCTS: Gallbladder is surgically absent with mild intrahepatic and extra hepatic biliary dilatation likely physiologic and a postcholecystectomy change. No evidence of choledocholit hiasis. PANCREAS: Unremarkable. SPLEEN: Calcified granuloma. ADRENAL GLANDS: Unremarkable. KIDNEYS AND URETERS: No evidence of hydronephrosis or renal calculus. The ureters are unremarkable. Stable exophytic right upper pole lesion measuring 2.9 cm, previously 3.2 cm. There is again mild per ipheral enhancement within the cortex. There is some peripheral nodular enhancement redemonstrated. C ontrast is demonstrated within both collecting systems on the delayed phase. PELVIS BLADDER: Incompletely distended but grossly unremarkable. REPRODUCTIVE: Brachytherapy seeds identified within the prostate gland which is mildly prominent size measuring 4.9 cm in diameter. ABDOMEN & PELVIS STOMACH AND BOWEL: Postsurgical changes at the GE junction without evidence for hiatal hernia.Enteric contrast reaches the distal small bowel. Distal colonic diverticulosis without evidence for acute di verticulitis. No focal bowel wall thickening or surrounding inflammatory changes. No evidence of meredith l obstruction. PERITONEUM: No evidence of pneumoperitoneum or free fluid. VASCULATURE: Moderate atherosclerotic calcifications are present throughout the abdominal aorta and i ts branches. No evidence of aortic aneurysm. MUSCULOSKELETAL: No acute osseous abnormalities. Moderate disc degeneration changes are present throu ghout the thoracolumbar spine. Dextrocurvature of the lumbar spine. Diffuse bone demineralization. LYMPH NODES: No evidence for lymphadenopathy. SOFT TISSUE/ABDOMINAL WALL: Unremarkable IMPRESSION: 1. No CT evidence for acute abdominopelvic process. 2. Colonic diverticulosis without evidence for acute diverticulitis. 3. Stable right renal upper pole indeterminate enhancing mass. This still raises concern for possible renal cell carcinoma versus other etiologies such as an oncocytoma. [facility], , 09/02/2024 2:27 PM
== END | disposition home or self-care (01) ==
LOC: RADCTMAIN 11:59
PROVIDERS: ATTEND Family Medicine
DX: K57.30 Diverticulosis of large intestine without perforation or abscess without bleeding (principal); I70.0 Atherosclerosis of aorta
CPT/HCPCS: 74178; Q9967